=== PATIENT | male | born 1945 | race Caucasian/White ===

== ENCOUNTER 2019-06-24 11:25 | Outpatient (CLI) | payer MEDICARE, OTHER, SELFPAY ==
--- NOTE | ~2019-06-24 | CT_ITS ---
EXAMINATION: CT hip RT wo con DATE: 06/24/2019 11:42 INDICATION: Right hip pain. TECHNIQUE: Computed tomography (CT) of the right hip was performed without intravenous contrast. Auto mated exposure control and iterative reconstruction technique were employed. The dose-length product was 754.55 mGy-cm. COMPARISON: CT abdomen and pelvis 03/16/2015 FINDINGS: There is a small right inguinal hernia containing fat. Bone alignment is normal. No fractur e. There is moderate right hip osteoarthritis. There is severe lumbar spondylosis. There is severe tr ochanteric bursitis. IMPRESSION: 1. Moderate right hip osteoarthritis. 2. Severe right-sided trochanteric bursitis. 3. Small right inguinal hernia containing fat. Reviewed, dictated and finalized at location A. CAPPER
== END 2019-06-24 11:26 | disposition home or self-care (01) ==
LOC: CHSIMG 11:28
PROVIDERS: PCP Internal Medicine; Visit Provider Internal Medicine
DX: M25.551 Pain in right hip (principal)
CPT/HCPCS: 73700

== ENCOUNTER 2019-10-14 13:25 | Emergency (ER) | payer MEDICARE, OTHER, SELFPAY ==
[2019-10-14 13:46] VITALS: BP 188/89; PULSE 71; RESP 22; TEMP 36.6; O2SAT 97
--- NOTE | 2019-10-14 14:18 | ED.WOUNDLAC ---
HPI - Wound/Laceration General Chief Complaint: Wound/Laceration Stated Complaint: cut fingers left hand Source: patient Mode of arrival: ambulatory Limitations: no limitations History of Present Illness HPI narrative: patient presents with laceration that occurred earlier today after he was working at home with a knife cutting the excess paint awful when window pane and inadvertently cut his left anterior 3rd and 4th finger they are well-approximated initially there was quite a bili bleeding that prompted the patient to come into the emergency department. Currently there is no bleeding the patient has well-approximated well laceration to his anterior 3rd finger approximately 1cm in in length and the other on his 4th anterior finger approximately 0.5cm and a non gaping currently no numbness tingling. Patient does take a baby aspirin daily. Onset (ago): minute(s) Location: other ( Fingers) Extremity Location: Left: hand ( laceration anterior 3rd and 4th finger) Place: home Context: accidental Associated symptoms: none Related Data Home Medications Medication Instructions Recorded Confirmed alprazolam 0.25 mg PO PRN PRN 10/14/19 10/14/19 carvedilol 12.5 mg PO BID 10/14/19 10/14/19 clonidine HCl 0.1 mg PO DAILY 10/14/19 10/14/19 hydralazine 50 mg PO DAILY 10/14/19 10/14/19 hydrochlorothiazide 50 mg PO DAILY 10/14/19 10/14/19 lovastatin 40 mg PO 10/14/19 10/14/19 metformin 500 mg PO DAILY 10/14/19 10/14/19 nifedipine 30 mg PO DAILY 10/14/19 10/14/19 nitroglycerin 0.4 mg SUBLINGUAL PRN PRN 10/14/19 10/14/19 omeprazole 40 mg PO DAILY 10/14/19 10/14/19 potassium chloride 20 meq PO DAILY 10/14/19 10/14/19 tramadol 50 mg PO PRN PRN 10/14/19 10/14/19 trazodone 50 mg PO HS 10/14/19 10/14/19 Allergies Allergy/AdvReac Type Severity Reaction Status Date / Time hydrocodone Allergy Severe ITCHING Verified 05/04/15 16:47 tramadol Allergy Severe ITCHING Verified 05/04/15 16:47 codeine Allergy Hives Verified 10/14/19 13:42 Review of Systems Review of Systems: All systems reviewed & are unremarkable except as noted in HPI and below PMFSH Past Medical History Medical History HTN (hypertension) Exam Const: General: no acute distress and alert Orientation/consciousness: patient oriented x3 HENMT: Head: normal to inspection Eyes: Conjunctivae: conjunctivae normal Pupils: Equal, round and reactive pupils present Neck: Neck: normal visual inspection and no lymphadenopathy Chest: Chest palpation & inspection: normal inspection of the chest Resp: Effort & Inspection: normal respiratory effort Auscultation: clear to auscultation bilaterally Cardio: Rate: regular rate Rhythm: regular rhythm GI: GI Palp: Yes Soft to palpation Percussion: Yes normal to percussion Skin: Wounds: wounds noted Other: laceration anterior 3rd left finger approximately 1cm in length non gaping Laceration anterior 4th finger non gaping 0.5cm in length Neuro: General: patient oriented x3, moves all extremities, no meningeal signs and no focal motor deficits Extrem: General: normal to inspection Psych: Appearance: grossly normal Mental Status: mental status grossly normal Course Course Emergency Course: patient had Dermabond the wound was irrigated patient tolerated procedure well currently no bleeding and patient was updated with his tetanus shot. Vital Signs Vital signs: Vital Signs Temperature 36.6 C 10/14/19 13:46 Pulse Rate 71 10/14/19 13:46 Respiratory Rate 22 H 10/14/19 13:46 Blood Pressure 188/89 H 10/14/19 13:46 Pulse Oximetry 97 10/14/19 13:46 Temperature 36.6 C 10/14/19 13:46 Pulse Rate 71 10/14/19 13:46 Respiratory Rate 22 H 10/14/19 13:46 Blood Pressure 188/89 H 10/14/19 13:46 Pulse Oximetry 97 10/14/19 13:46 Critical Care Time Critical Care Time Critical Care Time: No Discharge Plan Discharge Clinical Impression: Laceration
[2019-10-14] MEDS: TETANUS,DIPHTHERIA,AC PERTUSSIS ADULT 0.5 ML (ADACEL) IM (14:20)
[2019-10-14 14:37] VITALS: RESP 15
== END 2019-10-14 14:30 | disposition home or self-care (01) ==
PROVIDERS: Emergency Provider Emergency Medicine; PCP Internal Medicine
DX: S61.412A Laceration without foreign body of left hand, initial encounter (principal); W26.0XXA Contact with knife, initial encounter
CPT/HCPCS: 90471; 90715; 99282

== ENCOUNTER 2019-10-26 06:58 | Outpatient (CLI) | payer MEDICARE, SELFPAY ==
[2019-10-26 07:13] LABS: Add Urine Microscopic? NO; Appearance Urine Clear (Clear); Bilirubin Urine Negative (Negative); Blood Urine Negative (Negative); Color Urine Yellow (Yellow); Glucose Urine UA Negative (Negative); Ketones Urine Negative (Negative); Leukocyte Esterase Ur Negative (Negative); Nitrate Urine Negative (Negative); Protein Urine Negative (Negative); Specific Grav Ur 1.025 (1.010-1.020); Urobilinogen Urine 0.2 mg/dL (0.2-1.0); pH Urine 5.5 (5.0-8.0)
[2019-10-26 07:16] LABS: Hemoglobin A1C 5.4 % (<5.7)
[2019-10-26 07:20] LABS: Creatinine Urine 131.85 mg/dL (40-278); Microalbumin Urine Random 1.4 mg/L
[2019-10-26 08:43] LABS: Alanine Aminotransferase 36 U/L (16-63); Albumin Level 4.2 g/dL (3.4-5.0); Alkaline Phosphatase 82 U/L (46-116); Anion Gap 13.2 mmol/L (7-16); Aspartate Amino Transferase 21 U/L (15-37); Bilirubin,Total 0.6 mg/dL (0.00-1.00); Blood Urea Nitrogen 18 mg/dL (7-18); Calcium 8.9 mg/dL (8.5-10.1); Carbon Dioxide 28 mmol/L (21-32); Chloride 104 mmol/L (98-108); Cholesterol 134 mg/dL (0-200); Creatine Kinase 152 U/L (39-308); Estimated Glomerular Filt Rate > 60; Glucose 115 mg/dL (70-99); HDL Direct 28 mg/dL (40-60); LDL Cholesterol Calculated 72 mg/dL (<130); Osmolality Calculated 294 mOsm/kg (285-295); Potassium 4.2 mmol/L (3.5-5.1); Sodium 141 mmol/L (136-145); Total Protein 6.9 g/dL (6.4-8.2); Triglycerides 168 mg/dL (0-150)
== END 2019-10-26 06:59 | disposition home or self-care (01) ==
LOC: CHSLAB 06:59
PROVIDERS: PCP Internal Medicine; Visit Provider Internal Medicine
DX: E78.2 Mixed hyperlipidemia (principal); E11.9 Type 2 diabetes mellitus without complications; I10 Essential (primary) hypertension; Z01.84 Encounter for antibody response examination
CPT/HCPCS: 36415; 80053; 80061; 81003; 82043; 82550; 83036; 86769

== ENCOUNTER 2019-12-10 07:01 | Outpatient (CLI) | payer MEDICARE, SELFPAY ==
[2019-12-10 07:46] LABS: Anion Gap 11.9 mmol/L (7-16); Blood Urea Nitrogen 14 mg/dL (7-18); Calcium 9.1 mg/dL (8.5-10.1); Carbon Dioxide 29 mmol/L (21-32); Chloride 103 mmol/L (98-108); Estimated Glomerular Filt Rate 55; Glucose 147 mg/dL (70-99); Osmolality Calculated 293 mOsm/kg (285-295); Potassium 3.9 mmol/L (3.5-5.1); Sodium 140 mmol/L (136-145)
== END 2019-12-10 07:02 | disposition home or self-care (01) ==
PROVIDERS: PCP Internal Medicine; Visit Provider Specialist
DX: Z79.899 Other long term (current) drug therapy (principal); I10 Essential (primary) hypertension
CPT/HCPCS: 36415; 80048

== ENCOUNTER 2020-01-14 06:59 | Outpatient (CLI) | payer MEDICARE, SELFPAY ==
[2020-01-14 08:53] LABS: Anion Gap 10 mmol/L (8-16); Blood Urea Nitrogen 21 mg/dL (7-18); Calcium 8.9 mg/dL (8.5-10.1); Carbon Dioxide 28 mmol/L (21-32); Chloride 102 mmol/L (98-108); Estimated Glomerular Filt Rate > 60; Glucose 98 mg/dL (70-99); Osmolality Calculated 293 mOsm/kg (285-295); Sodium 140 mmol/L (136-145)
== END 2020-01-14 07:00 | disposition home or self-care (01) ==
LOC: CHSLAB 07:01
PROVIDERS: PCP Internal Medicine; Visit Provider Specialist
DX: Z79.899 Other long term (current) drug therapy (principal); I10 Essential (primary) hypertension
CPT/HCPCS: 36415; 80048

== ENCOUNTER 2020-04-24 07:00 | Outpatient (CLI) | payer MEDICARE, SELFPAY ==
[2020-04-24 07:13] LABS: Add Urine Microscopic? NO; Appearance Urine Clear (Clear); Bilirubin Urine Negative (Negative); Blood Urine Negative (Negative); Color Urine Yellow (Yellow); Glucose Urine UA Negative (Negative); Hematocrit 38.6 % (37.0-46.0); Hemoglobin 13.9 g/dL (12.4-15.3); Ketones Urine Negative (Negative); Leukocyte Esterase Ur Negative (Negative); Mean Corpuscular Hemoglobin 32.1 pg (27.0-31.0); Mean Corpuscular Volume 89.1 fL (78.0-102.0); Mean Platelet Volume 9.4 fl (8.7-11.0); Nitrate Urine Negative (Negative); Platelet Count Result 115 K/mm3 (150-420); Protein Urine Negative (Negative); Red Blood Count 4.33 M/mm3 (4.70-6.10); Red Cell Distribution Width 12.1 % (11.6-14.4); Specific Grav Ur 1.025 (1.010-1.020); Urobilinogen Urine 0.2 mg/dL (0.2-1.0); White Blood Count 3.4 K/mm3 (4.8-10.8)
[2020-04-24 08:09] LABS: Band Neutrophils Percent 2 % (0-6); Basophils Percent Manual 0 % (0-1); Eosinophils Absolute Manual 0.06 K/mm3 (0.02-0.5); Eosinophils Percent Manual 2 % (1-6); Lymphocytes Absolute Manual 0.78 K/mm3 (1.1-4.5); Lymphocytes Percent Manual 23 % (18-44); Monocytes Absolute Manual 0.57 K/mm3 (0.1-0.90); Monocytes Percent Manual 17 % (3-9); Neutrophils Absolute Manual 1.97 K/mm3 (1.3-6.7); Neutrophils Percent Manual 56 % (46-73); Platelet Estimate Adequate (Adequate); Total Cells Counted 100
[2020-04-24 08:10] LABS: Creatinine Urine 161.41 mg/dL (40-278); MALB Creatinine Ratio 8.1 mg/g (0-30); Microalbumin Urine Random 13.1 mg/L
[2020-04-24 08:14] LABS: Hemoglobin A1C 5.5 % (<5.7)
[2020-04-24 08:46] LABS: Alanine Aminotransferase 54 U/L (16-63); Alkaline Phosphatase 94 U/L (46-116); Anion Gap 10 mmol/L (8-16); Aspartate Amino Transferase 29 U/L (15-37); Bilirubin,Total 0.4 mg/dL (0.00-1.00); Blood Urea Nitrogen 15 mg/dL (7-18); Calcium 8.7 mg/dL (8.5-10.1); Carbon Dioxide 28 mmol/L (21-32); Chloride 102 mmol/L (98-108); Cholesterol 105 mg/dL (0-200); Creatine Kinase 107 U/L (39-308); Estimated Glomerular Filt Rate 59; Glucose 108 mg/dL (70-99); HDL Direct 24 mg/dL (40-60); LDL Cholesterol Calculated 34 mg/dL (<130); Osmolality Calculated 291 mOsm/kg (285-295); Potassium 3.9 mmol/L (3.5-5.1); Sodium 140 mmol/L (136-145); Total Protein 6.8 g/dL (6.4-8.2); Triglycerides 234 mg/dL (0-150)
== END 2020-04-24 07:01 | disposition home or self-care (01) ==
LOC: CHSLAB 07:02
PROVIDERS: PCP Internal Medicine; Visit Provider Internal Medicine
DX: E11.9 Type 2 diabetes mellitus without complications (principal); I10 Essential (primary) hypertension; E78.2 Mixed hyperlipidemia; D72.819 Decreased white blood cell count, unspecified
CPT/HCPCS: 36415; 80053; 80061; 81003; 82043; 82550; 83036; 85025

== ENCOUNTER 2020-05-26 07:01 | Outpatient (CLI) | payer MEDICARE, SELFPAY ==
[2020-05-26 07:11] LABS: Basophils Absolute Auto 0.03 K/mm3 (0.00-0.10); Basophils Percent Auto 0.6 % (0.0-1.0); Eosinophils Absolute Auto 0.19 K/mm3 (0.02-0.50); Hematocrit 39.8 % (37.0-46.0); Hemoglobin 14.1 g/dL (12.4-15.3); Immature Granulocyte Absolute 0.02 K/mm3 (0.00-0.00); Immature Granulocyte Percent A 0.4 % (0.0-0.0); Lymphocytes Percent Auto 23.2 % (18.0-42.0); Mean Corpuscular HGB Conc 35.4 g/dL (32.0-36.0); Mean Corpuscular Hemoglobin 31.3 pg (27.0-31.0); Mean Corpuscular Volume 88.2 fL (78.0-102.0); Mean Platelet Volume 9.1 fl (8.7-11.0); Monocytes Absolute Auto 0.59 K/mm3 (0.10-0.90); Monocytes Percent Auto 12.4 % (2.0-11.0); Neutrophils Absolute Auto 2.8 K/mm3 (1.7-7.2); Neutrophils Percent Auto 59.4 % (50.0-70.0); Platelet Count Result 158 K/mm3 (150-420); Red Blood Count 4.51 M/mm3 (4.70-6.10); Red Cell Distribution Width 12.3 % (11.6-14.4); White Blood Count 4.8 K/mm3 (4.8-10.8)
== END 2020-05-26 07:02 | disposition home or self-care (01) ==
LOC: CHSLAB 07:03
PROVIDERS: PCP Internal Medicine; Visit Provider Internal Medicine
DX: D64.0 Hereditary sideroblastic anemia (principal)
CPT/HCPCS: 36415; 85025

== ENCOUNTER 2021-10-03 07:29 | Outpatient (CLI) | payer MEDICARE, SELFPAY ==
--- NOTE | ~2021-10-03 | US_ITS ---
EXAMINATION: US art doppler w press LE BI DATE: 10/03/2021 09:07 INDICATION: Peripheral arterial occlusive disease with hypertension, ascites, hypercholesterolemia an d prior smoking presenting with lower limb pain. TECHNIQUE: Segmental pressures and plethysmographic and Doppler waveforms of the brachial and lower e xtremity arteries were obtained. COMPARISON: None. FINDINGS: Right and left brachial artery pressures of 149 mm Hg and 147 mm Hg, respectively, are concordant (no rmal difference <= 30 mmHg). The right and left high-thigh pressure indices are 1.01 and 1.09, respec tively (normal > 1.2). The right ankle-brachial index (ROSENDO) is 0.84 (normal >= 0.9-1). The right great toe-brachial index (T BI) is 0.46 (normal >= 0.6-0.8). The right lower extremity segmental pressure gradients are increased between the right above and nbrdd-ooh-lxrm popliteal artery and between the right wfipj-fib-kjfm pop liteal artery and the right dorsalis pedis artery (normal gradients <= 20-30 mmHg between adjacent le vels on the same leg or the same levels on the two legs). Arterial waveforms are biphasic with brisk systolic upstrokes throughout the arteries of the right lower limb. The left ROSENDO is 0.87. The left TBI was unable to be obtained due to pain at the left great toe. The l eft lower extremity segmental pressure gradients are increased between the left ovsax-qpl-tsvi poplit eal artery and the left dorsalis pedis and posterior tibial arteries at the ankle. Arterial waveforms are triphasic at the left common femoral artery and biphasic in the more distal arteries with brisk systolic upstrokes throughout. IMPRESSION: 1. Arterial occlusive disease to the bilateral lower limbs with mildly decreased bilateral high thigh pressure indices, ABIs and right TBI. Reviewed, dictated and finalized at location A. IMPRESSION: 1. Arterial occlusive disease to the bilateral lower limbs with mildly decrease d bilateral high thigh pressure indices, ABIs and right TBI.
== END 2021-10-03 07:30 | disposition home or self-care (01) ==
PROVIDERS: PCP Internal Medicine; Visit Provider Podiatrist Foot & Ankle Surgery
DX: I70.203 Unspecified atherosclerosis of native arteries of extremities, bilateral legs (principal); M79.606 Pain in leg, unspecified
CPT/HCPCS: 93923

== ENCOUNTER 2022-01-30 07:44 | Outpatient (CLI) | payer MEDICARE, SELFPAY | END 2022-01-30 07:45 | disposition home or self-care (01) | PROVIDERS: PCP Internal Medicine; Visit Provider Internal Medicine | DX: H91.93 Unspecified hearing loss, bilateral (principal) | CPT/HCPCS: 92557 ==

== ENCOUNTER 2022-05-30 07:02 | Outpatient (CLI) | payer MEDICARE, SELFPAY ==
[2022-05-30 07:30] LABS: Hematocrit 40.8 % (37.0-46.0); Hemoglobin 14.6 g/dL (12.4-15.3); Mean Corpuscular HGB Conc 35.8 g/dL (32.0-36.0); Mean Corpuscular Hemoglobin 32.2 pg (27.0-31.0); Mean Corpuscular Volume 89.9 fL (78.0-102.0); Mean Platelet Volume 9.4 fl (8.7-11.0); Platelet Count Result 150 K/mm3 (150-420); Red Blood Count 4.54 M/mm3 (4.70-6.10); Red Cell Distribution Width 11.9 % (11.6-14.4); White Blood Count 3.8 K/mm3 (4.8-10.8)
[2022-05-30 07:31] LABS: Add Urine Microscopic? NO; Appearance Urine Clear (Clear); Bilirubin Urine Negative (Negative); Blood Urine Negative (Negative); Color Urine Yellow (Yellow); Glucose Urine UA Negative (Negative); Ketones Urine Negative (Negative); Leukocyte Esterase Ur Negative (Negative); Nitrate Urine Negative (Negative); Protein Urine Negative (Negative); Specific Grav Ur >= 1.030 (1.010-1.020)
[2022-05-30 07:51] LABS: Band Neutrophils Percent 0 % (0-6); Basophils Absolute Manual 0.03 K/mm3 (0-0.1); Basophils Percent Manual 1 % (0-1); Eosinophils Absolute Manual 0.26 K/mm3 (0.02-0.5); Eosinophils Percent Manual 7 % (1-6); Lymphocytes Absolute Manual 1.06 K/mm3 (1.1-4.5); Lymphocytes Percent Manual 28 % (18-44); Monocytes Absolute Manual 0.34 K/mm3 (0.1-0.90); Monocytes Percent Manual 9 % (3-9); Neutrophils Absolute Manual 2.09 K/mm3 (1.3-6.7); Neutrophils Percent Manual 55 % (46-73); Platelet Estimate Adequate (Adequate); Total Cells Counted 100
[2022-05-30 08:00] LABS: Creatinine Urine 163.65 mg/dL (40-278); MALB Creatinine Ratio 7.9 mg/g (0-30); Microalbumin Urine Random < 13.0 mg/L
[2022-05-30 08:02] LABS: Hemoglobin A1C 5.6 % (<5.7)
[2022-05-30 08:52] LABS: Alanine Aminotransferase 47 U/L (16-63); Albumin Level 4.1 g/dL (3.4-5.0); Alkaline Phosphatase 88 U/L (46-116); Anion Gap 9 mmol/L (8-16); Aspartate Amino Transferase 25 U/L (15-37); Bilirubin,Total 0.5 mg/dL (0.00-1.00); Blood Urea Nitrogen 15 mg/dL (7-18); Calcium 8.5 mg/dL (8.5-10.1); Carbon Dioxide 28 mmol/L (21-32); Chloride 103 mmol/L (98-108); Cholesterol 140 mg/dL (0-200); Creatine Kinase 89 U/L (39-308); Estimated Glomerular Filt Rate 60; Glucose 132 mg/dL (70-99); HDL Direct 35 mg/dL (40-60); LDL Cholesterol Calculated 80 mg/dL (<130); Osmolality Calculated 292 mOsm/kg (285-295); Potassium 4.1 mmol/L (3.5-5.1); Sodium 140 mmol/L (136-145); Total Protein 6.8 g/dL (6.4-8.2); Triglycerides 126 mg/dL (0-150)
== END 2022-05-30 07:03 | disposition home or self-care (01) ==
LOC: CHSLAB 07:05
PROVIDERS: PCP Internal Medicine; Visit Provider Internal Medicine
DX: E11.9 Type 2 diabetes mellitus without complications (principal); I10 Essential (primary) hypertension; E78.2 Mixed hyperlipidemia; I25.10 Atherosclerotic heart disease of native coronary artery without angina pectoris; Z85.46 Personal history of malignant neoplasm of prostate
CPT/HCPCS: 36415; 80053; 80061; 81003; 82043; 82550; 83036; 85025

== ENCOUNTER 2022-06-25 10:49 | Outpatient (CLI) | payer MEDICARE, SELFPAY ==
[2022-06-25 11:22] LABS: Basophils Absolute Auto 0.03 K/mm3 (0.00-0.10); Basophils Percent Auto 0.6 % (0.0-1.0); Eosinophils Absolute Auto 0.18 K/mm3 (0.02-0.50); Eosinophils Percent Auto 3.7 % (1.0-6.0); Immature Granulocyte Absolute 0.02 K/mm3 (0.00-0.00); Immature Granulocyte Percent A 0.4 % (0.0-0.0); Lymphocytes Absolute Auto 0.98 K/mm3 (1.10-4.50); Lymphocytes Percent Auto 20.2 % (18.0-42.0); Mean Corpuscular HGB Conc 35.7 g/dL (32.0-36.0); Mean Corpuscular Hemoglobin 32.2 pg (27.0-31.0); Mean Corpuscular Volume 90.1 fL (78.0-102.0); Mean Platelet Volume 9.3 fl (8.7-11.0); Monocytes Absolute Auto 0.49 K/mm3 (0.10-0.90); Monocytes Percent Auto 10.1 % (2.0-11.0); Neutrophils Absolute Auto 3.1 K/mm3 (1.7-7.2); Platelet Count Result 169 K/mm3 (150-420); Red Blood Count 4.66 M/mm3 (4.70-6.10); Red Cell Distribution Width 11.9 % (11.6-14.4); White Blood Count 4.8 K/mm3 (4.8-10.8)
[2022-06-25 11:43] LABS: Anion Gap 8 mmol/L (8-16); Blood Urea Nitrogen 14 mg/dL (7-18); Calcium 8.8 mg/dL (8.5-10.1); Carbon Dioxide 28 mmol/L (21-32); Chloride 106 mmol/L (98-108); Estimated Glomerular Filt Rate > 60; Glucose 116 mg/dL (70-99); Osmolality Calculated 295 mOsm/kg (285-295); Potassium 4.4 mmol/L (3.5-5.1); Sodium 142 mmol/L (136-145)
== END 2022-06-25 10:50 | disposition home or self-care (01) ==
LOC: CHSLAB 10:51
PROVIDERS: PCP Internal Medicine; Visit Provider Internal Medicine
DX: D70.9 Neutropenia, unspecified (principal); I10 Essential (primary) hypertension
CPT/HCPCS: 36415; 80048; 85025

== ENCOUNTER 2022-06-26 07:09 | Outpatient (CLI) | payer MEDICARE, SELFPAY ==
--- NOTE | ~2022-06-26 | CT_ITS ---
EXAMINATION: CTA neck DATE: 06/26/2022 07:55 INDICATION: Carotid stenosis. TECHNIQUE: Computed tomographic angiography (CTA) of the neck was performed with 100 mL Omnipaque-350 intravenous contrast. Automated exposure control and iterative reconstruction technique were employe d. The dose-length product was 575.96 mGy-cm. Maximum intensity projection 3D-reconstructions were cr eated by the technologist on a separate workstation. COMPARISON: Neck CTA 06/11/19 FINDINGS: There is mild scarring at the lung apices. There are no pathologically enlarged lymph nodes . There are likely changes of ocular lens replacement surgeries. The vertebral arteries are codominan t. There is no significant stenosis of the vertebral arteries. There is plaque in the proximal internet sales consultant al carotid arteries. There is 77% stenosis of the proximal right internal carotid artery relative to normal distal artery lumen diameter (NASCET criteria). There is 34% stenosis of the proximal left int ernal carotid artery relative to normal distal artery lumen diameter. There is severe cervical spondy losis. There are changes of anterior fusion procedure at C6-C7. IMPRESSION: 1. 77% stenosis of the proximal right internal carotid artery relative to normal distal artery lumen diameter (NASCET criteria). 2. 34% stenosis of the proximal left internal carotid artery relative to normal distal artery lumen d iameter. Reviewed, dictated and finalized at location A. GEMENT LIAISON IMPRESSION: 1. 77% stenosis of the proximal right internal carotid artery relative to rossy l distal artery lumen diameter (NASCET criteria). 2. 34% stenosis of the proximal left internal carotid artery relative to normal distal artery lumen diameter.
== END 2022-06-26 07:10 | disposition home or self-care (01) ==
LOC: CHSIMG 07:10
PROVIDERS: PCP Internal Medicine; Visit Provider Internal Medicine
DX: I65.23 Occlusion and stenosis of bilateral carotid arteries (principal)
CPT/HCPCS: 70498; Q9967

== ENCOUNTER 2022-12-25 06:53 | Outpatient (CLI) | payer MEDICARE, SELFPAY ==
[2022-12-25 07:05] LABS: Basophils Absolute Auto 0.05 K/mm3 (0.00-0.10); Eosinophils Absolute Auto 0.16 K/mm3 (0.02-0.50); Eosinophils Percent Auto 3.3 % (1.0-6.0); Hematocrit 41.4 % (37.0-46.0); Hemoglobin 14.7 g/dL (12.4-15.3); Immature Granulocyte Absolute 0.02 K/mm3 (0.00-0.00); Immature Granulocyte Percent A 0.4 % (0.0-0.0); Lymphocytes Absolute Auto 1.04 K/mm3 (1.10-4.50); Lymphocytes Percent Auto 21.5 % (18.0-42.0); Mean Corpuscular HGB Conc 35.5 g/dL (32.0-36.0); Mean Corpuscular Volume 90.2 fL (78.0-102.0); Mean Platelet Volume 9.5 fl (8.7-11.0); Monocytes Absolute Auto 0.54 K/mm3 (0.10-0.90); Monocytes Percent Auto 11.2 % (2.0-11.0); Neutrophils Percent Auto 62.6 % (50.0-70.0); Platelet Count Result 169 K/mm3 (150-420); Red Blood Count 4.59 M/mm3 (4.70-6.10); White Blood Count 4.8 K/mm3 (4.8-10.8)
[2022-12-25 07:13] LABS: Appearance Urine Clear (Clear); Bilirubin Urine Negative (Negative); Blood Urine Negative (Negative); Color Urine Yellow (Yellow); Glucose Urine UA Negative (Negative); Ketones Urine Negative (Negative); Leukocyte Esterase Ur Negative (Negative); Nitrate Urine Negative (Negative); Protein Urine Negative (Negative); Specific Grav Ur 1.025 (1.010-1.020)
[2022-12-25 07:18] LABS: Add Urine Microscopic? NO
[2022-12-25 07:29] LABS: Creatinine Urine 205.14 mg/dL (40-278); MALB Creatinine Ratio 6.3 mg/g (0-30); Microalbumin Urine Random < 13.0 mg/L
[2022-12-25 07:31] LABS: Hemoglobin A1C 5.1 % (<5.7)
[2022-12-25 08:20] LABS: Alanine Aminotransferase 31 U/L (16-63); Albumin Level 3.9 g/dL (3.4-5.0); Alkaline Phosphatase 104 U/L (46-116); Anion Gap 11 mmol/L (8-16); Aspartate Amino Transferase 17 U/L (15-37); Bilirubin,Total 0.4 mg/dL (0.00-1.00); Blood Urea Nitrogen 20 mg/dL (7-18); Calcium 8.9 mg/dL (8.5-10.1); Carbon Dioxide 25 mmol/L (21-32); Chloride 106 mmol/L (98-108); Cholesterol 139 mg/dL (0-200); Creatine Kinase 67 U/L (39-308); Estimated Glomerular Filt Rate 56; Glucose 103 mg/dL (70-99); HDL Direct 34 mg/dL (40-60); LDL Cholesterol Calculated 75 mg/dL (<130); Osmolality Calculated 296 mOsm/kg (285-295); Potassium 4.1 mmol/L (3.5-5.1); Sodium 142 mmol/L (136-145); Total Protein 6.8 g/dL (6.4-8.2); Triglycerides 150 mg/dL (0-150)
== END 2022-12-25 06:54 | disposition home or self-care (01) ==
LOC: CHSLAB 06:55
PROVIDERS: PCP Internal Medicine; Visit Provider Internal Medicine
DX: R53.82 Chronic fatigue, unspecified (principal); I10 Essential (primary) hypertension; E78.2 Mixed hyperlipidemia; D70.9 Neutropenia, unspecified; E11.59 Type 2 diabetes mellitus with other circulatory complications
CPT/HCPCS: 36415; 80053; 80061; 81003; 82043; 82550; 83036; 85025

== ENCOUNTER 2023-01-21 07:15 | Outpatient (CLI) | payer MEDICARE, SELFPAY ==
[2023-01-21 08:15] LABS: Alanine Aminotransferase 31 U/L (16-63); Albumin Level 3.9 g/dL (3.4-5.0); Alkaline Phosphatase 98 U/L (46-116); Anion Gap 7 mmol/L (8-16); Aspartate Amino Transferase 19 U/L (15-37); Bilirubin,Total 0.6 mg/dL (0.00-1.00); Blood Urea Nitrogen 17 mg/dL (7-18); Calcium 9.1 mg/dL (8.5-10.1); Carbon Dioxide 28 mmol/L (21-32); Chloride 105 mmol/L (98-108); Estimated Glomerular Filt Rate > 60; Glucose 117 mg/dL (70-99); Osmolality Calculated 292 mOsm/kg (285-295); Potassium 4.2 mmol/L (3.5-5.1); Sodium 140 mmol/L (136-145); Total Protein 6.6 g/dL (6.4-8.2)
== END 2023-01-21 07:16 | disposition home or self-care (01) ==
LOC: CHSLAB 07:16
PROVIDERS: PCP Internal Medicine; Visit Provider Internal Medicine
DX: I10 Essential (primary) hypertension (principal)
CPT/HCPCS: 36415; 80053

== ENCOUNTER → 2023-04-14 09:57 | Outpatient (REF) | payer MEDICARE, SELFPAY | LOC: ANHLAB 09:57 | PROVIDERS: PCP Internal Medicine; Visit Provider Plastic Surgery | DX: C44.319 Basal cell carcinoma of skin of other parts of face (principal) | CPT/HCPCS: 88305 ==

== ENCOUNTER 2023-07-16 06:52 | Outpatient (CLI) | payer MEDICARE, SELFPAY ==
[2023-07-16 07:06] LABS: Appearance Urine Clear (Clear); Basophils Absolute Auto 0.05 K/mm3 (0.00-0.10); Basophils Percent Auto 1.1 % (0.0-1.0); Bilirubin Urine Negative (Negative); Blood Urine Trace-Intact (Negative); Color Urine Yellow (Yellow); Eosinophils Absolute Auto 0.16 K/mm3 (0.02-0.50); Eosinophils Percent Auto 3.4 % (1.0-6.0); Glucose Urine UA Negative (Negative); Hematocrit 40.3 % (37.0-46.0); Hemoglobin 14.4 g/dL (12.4-15.3); Immature Granulocyte Absolute 0.01 K/mm3 (0.00-0.00); Immature Granulocyte Percent A 0.2 % (0.0-0.0); Ketones Urine Negative (Negative); Leukocyte Esterase Ur Negative (Negative); Lymphocytes Absolute Auto 0.83 K/mm3 (1.10-4.50); Lymphocytes Percent Auto 17.8 % (18.0-42.0); Mean Corpuscular HGB Conc 35.7 g/dL (32.0-36.0); Mean Corpuscular Hemoglobin 31.4 pg (27.0-31.0); Mean Corpuscular Volume 87.8 fL (78.0-102.0); Mean Platelet Volume 9.2 fl (8.7-11.0); Monocytes Absolute Auto 0.41 K/mm3 (0.10-0.90); Monocytes Percent Auto 8.8 % (2.0-11.0); Neutrophils Absolute Auto 3.2 K/mm3 (1.7-7.2); Neutrophils Percent Auto 68.7 % (50.0-70.0); Nitrate Urine Negative (Negative); Platelet Count Result 156 K/mm3 (150-420); Protein Urine Negative (Negative); Red Blood Count 4.59 M/mm3 (4.70-6.10); Red Cell Distribution Width 11.8 % (11.6-14.4); Specific Grav Ur 1.025 (1.010-1.020); Urobilinogen Urine 0.2 mg/dL (0.2-1.0); White Blood Count 4.7 K/mm3 (4.8-10.8); pH Urine 5.5 (5.0-8.0)
[2023-07-16 07:12] LABS: Add Urine Microscopic? YES; Bacteria Urine Trace /hpf; Mucus Urine Few /lpf; RBC Urine 0-2 /hpf (0-2); WBC Urine None seen /hpf (0-3)
[2023-07-16 07:15] LABS: Hemoglobin A1C 5.5 % (<5.7)
[2023-07-16 07:46] LABS: Alanine Aminotransferase 39 U/L (16-63); Alkaline Phosphatase 86 U/L (46-116); Anion Gap 11 mmol/L (8-16); Aspartate Amino Transferase 17 U/L (15-37); Bilirubin,Total 0.6 mg/dL (0.00-1.00); Blood Urea Nitrogen 20 mg/dL (7-18); Calcium 8.6 mg/dL (8.5-10.1); Carbon Dioxide 26 mmol/L (21-32); Chloride 104 mmol/L (98-108); Cholesterol 133 mg/dL (0-200); Creatine Kinase 73 U/L (39-308); Estimated Glomerular Filt Rate > 60; Free T4 Free Thyroxine 0.94 ng/dL (0.76-1.46); Glucose 117 mg/dL (70-99); HDL Direct 36 mg/dL (40-60); LDL Cholesterol Calculated 70 mg/dL (<130); Osmolality Calculated 295 mOsm/kg (285-295); Potassium 4.2 mmol/L (3.5-5.1); Sodium 141 mmol/L (136-145); Thyroid Stimulating Hormone 3.41 uIU/mL (0.36-3.74); Total Protein 6.7 g/dL (6.4-8.2); Triglycerides 133 mg/dL (0-150)
[2023-07-17 09:36] LABS: Creatinine Urine 258.43 mg/dL (40-278); Microalbumin Urine Random < 13.0 mg/L
== END 2023-07-16 06:53 | disposition home or self-care (01) ==
LOC: CHSLAB 06:53
PROVIDERS: PCP Internal Medicine; Visit Provider Internal Medicine
DX: E11.59 Type 2 diabetes mellitus with other circulatory complications (principal); I10 Essential (primary) hypertension; E78.2 Mixed hyperlipidemia; R53.82 Chronic fatigue, unspecified
CPT/HCPCS: 36415; 80053; 80061; 81001; 82043; 82550; 83036; 84439; 84443; 85025

== ENCOUNTER 2024-01-22 09:10 | Outpatient (CLI) | payer MEDICARE, SELFPAY ==
--- NOTE | ~2024-01-22 | XR_ITS ---
Clinical Indication: Wheezing, cough PA and lateral views of the chest: Comparison: 07/27/2018 Findings: The lungs are clear, without evidence of focal consolidation or pleural effusion. Cardiome diastinal silhouette is within normal limits. Bones and soft tissues are unremarkable. Impression: Normal chest. Reviewed, dictated and finalized at location . Impression: Normal chest.
[2024-01-22 09:27] LABS: Hemoglobin 13.5 g/dL (12.4-15.3); Mean Corpuscular HGB Conc 35.5 g/dL (32-36); Mean Corpuscular Hemoglobin 32.3 pg (27.0-31.0); Mean Corpuscular Volume 90.9 fL (78.0-102.0); Mean Platelet Volume 9.3 fl (8.7-11.0); Platelet Count Result 143 K/mm3 (150-420); Red Blood Count 4.18 M/mm3 (4.70-6.10); Red Cell Distribution Width 12.1 % (11.6-14.4); White Blood Count 3.9 K/mm3 (4.8-10.8)
[2024-01-22 09:56] LABS: Band Neutrophils Percent 0 % (0-6); Eosinophils Absolute Manual 0.19 K/mm3 (0.02-0.50); Eosinophils Percent Manual 5 % (1-6); Lymphocytes Absolute Manual 1.17 K/mm3 (1.1-4.5); Lymphocytes Percent Manual 30 % (18-44); Monocytes Absolute Manual 0.19 K/mm3 (0.1-0.90); Monocytes Percent Manual 5 % (3-9); Neutrophils Absolute Manual 2.34 K/mm3 (1.3-6.7); Neutrophils Percent Manual 60 % (46-73); Platelet Estimate Adequate (Adequate); Total Cells Counted 100
[2024-01-22 10:01] LABS: SARS-CoV-2 RNA PCR Positive (Negative)
[2024-01-22 10:08] LABS: Influenza A QL RT-PCR Negative (Negative); Influenza B QL RT-PCR Negative (Negative); RSV RNA, RT-PCR Negative (Negative)
[2024-01-22 10:36] LABS: Alanine Aminotransferase 41 U/L (6-50); Albumin Level 4.3 g/dL (3.5-5.1); Alkaline Phosphatase 74 U/L (38-126); Anion Gap 10 mmol/L (4-12); Aspartate Amino Transferase 43 U/L (17-59); Bilirubin,Total 0.5 mg/dL (0.2-1.3); Blood Urea Nitrogen 17 mg/dL (9-20); Calcium 9.2 mg/dL (8.4-10.2); Carbon Dioxide 24 mmol/L (22-30); Chloride 101 mmol/L (98-107); Estimated Glomerular Filt Rate > 60; Glucose 114 mg/dL (65-110); Osmolality Calculated 282 mOsm/kg (285-295); Potassium 4.4 mmol/L (3.4-5.0); Sodium 135 mmol/L (137-145)
[2024-01-22 10:44] LABS: NT Pro B Type Natriuretic Pept 705 pg/mL (19.9-100)
== END 2024-01-22 09:11 | disposition home or self-care (01) ==
LOC: CHSLAB 09:14
PROVIDERS: PCP Internal Medicine; Visit Provider Internal Medicine
DX: U07.1 COVID-19 (principal); R05.9 Cough, unspecified; R06.2 Wheezing
CPT/HCPCS: 36415; 71046; 80053; 83880; 85025; 87637

== ENCOUNTER 2024-02-04 06:56 | Outpatient (CLI) | payer MEDICARE, SELFPAY ==
[2024-02-04 07:30] LABS: Add Urine Microscopic? YES; Appearance Urine Clear (Clear); Basophils Absolute Auto 0.03 K/mm3 (0.00-0.10); Basophils Percent Auto 0.5 % (0.0-1.0); Bilirubin Urine Negative (Negative); Blood Urine Negative (Negative); Color Urine Yellow (Yellow); Eosinophils Absolute Auto 0.09 K/mm3 (0.02-0.50); Eosinophils Percent Auto 1.6 % (1.0-6.0); Glucose Urine UA Negative (Negative); Hemoglobin 13.9 g/dL (12.4-15.3); Immature Granulocyte Absolute 0.08 K/mm3 (0.00-0.00); Immature Granulocyte Percent A 1.4 % (0.0-0.0); Ketones Urine Negative (Negative); Leukocyte Esterase Ur Negative (Negative); Lymphocytes Absolute Auto 1.24 K/mm3 (1.10-4.50); Lymphocytes Percent Auto 21.7 % (18.0-42.0); Mean Corpuscular HGB Conc 35.6 g/dL (32-36); Mean Corpuscular Hemoglobin 31.7 pg (27.0-31.0); Monocytes Absolute Auto 0.68 K/mm3 (0.10-0.90); Monocytes Percent Auto 11.9 % (2.0-11.0); Neutrophils Absolute Auto 3.59 K/mm3 (1.70-7.20); Neutrophils Percent Auto 62.9 % (50.0-70.0); Nitrate Urine Positive (Negative); Platelet Count Result 157 K/mm3 (150-420); Protein Urine Trace (Negative); Red Blood Count 4.38 M/mm3 (4.70-6.10); Red Cell Distribution Width 11.6 % (11.6-14.4); Specific Grav Ur >= 1.030 (1.010-1.020); White Blood Count 5.7 K/mm3 (4.8-10.8); pH Urine 5.5 (5.0-8.0)
[2024-02-04 07:37] LABS: RBC Urine None seen /hpf (0-2); WBC Urine None seen /hpf (0-3)
[2024-02-04 07:38] LABS: Bacteria Urine Trace /hpf; Hemoglobin A1C 6.3 % (<5.7); Mucus Urine Moderate /lpf
[2024-02-04 07:43] LABS: Creatinine Urine 301.26 mg/dL (40-278); MALB Creatinine Ratio 12.2 mg/g (0-30)
[2024-02-04 08:10] LABS: Alanine Aminotransferase 56 U/L (16-63); Albumin Level 3.4 g/dL (3.4-5.0); Alkaline Phosphatase 88 U/L (46-116); Anion Gap 9 mmol/L (4-12); Aspartate Amino Transferase 22 U/L (15-37); Bilirubin,Total 0.4 mg/dL (0.00-1.00); Blood Urea Nitrogen 23 mg/dL (7-18); Calcium 8.4 mg/dL (8.5-10.1); Carbon Dioxide 27 mmol/L (21-32); Chloride 100 mmol/L (98-108); Cholesterol 159 mg/dL (0-200); Creatine Kinase 43 U/L (39-308); Estimated Glomerular Filt Rate 50; Free T3 2.36 pg/mL (2.18-3.98); Free T4 Free Thyroxine 1.01 ng/dL (0.76-1.46); Glucose 140 mg/dL (70-99); HDL Direct 32 mg/dL (40-60); LDL Cholesterol Calculated 70 mg/dL (<130); NT Pro B Type Natriuretic Pept 459 pg/mL (0-450); Osmolality Calculated 287 mOsm/kg (285-295); Potassium 4.3 mmol/L (3.5-5.1); Sodium 136 mmol/L (136-145); Thyroid Stimulating Hormone 2.99 uIU/mL (0.36-3.74); Total Protein 6.2 g/dL (6.4-8.2); Triglycerides 286 mg/dL (0-150)
== END 2024-02-04 06:57 | disposition home or self-care (01) ==
LOC: CHSLAB 06:58
PROVIDERS: PCP Internal Medicine; Visit Provider Internal Medicine
DX: I25.10 Atherosclerotic heart disease of native coronary artery without angina pectoris (principal); R53.82 Chronic fatigue, unspecified; E11.59 Type 2 diabetes mellitus with other circulatory complications; I10 Essential (primary) hypertension; E78.2 Mixed hyperlipidemia; R06.2 Wheezing
CPT/HCPCS: 36415; 80053; 80061; 81001; 82043; 82550; 83036; 83880; 84439; 84443; 84481; 85025

== ENCOUNTER 2024-03-09 07:47 | Outpatient (CLI) | payer MEDICARE, SELFPAY ==
--- NOTE | ~2024-03-09 | CT_ITS ---
EXAMINATION: CT abdomen pelvis w con DATE: 03/09/2024 08:54 INDICATION: Rectal mass. Rectal pain. TECHNIQUE: Computed tomography (CT) of the abdomen and pelvis was performed with 100 mL Omnipaque 350 intravenous contrast. Automated exposure control and iterative reconstruction technique were employe d. The dose-length product was 1088.92 mGy-cm. COMPARISON: CT abdomen and pelvis 04/29/2018 FINDINGS: The visualized portions of the lung bases are clear without pneumonia or pleural effusion. The heart size is normal. No pericardial effusion. There are coronary artery calcifications. There is a 5 mm cyst in the liver. There are 3 hypodense masses in the liver measuring up to 2.0 cm. The gall bladder, spleen, pancreas, and adrenal glands are normal. There is cortical thinning of the kidneys. Between the bladder and rectum, there is a 4.5 x 3.4 cm mass centered to the right of midline. There is a 2.1 x 1.9 cm presacral mass to the right of midline. There is mild perirectal lymphadenopathy. T here is a 1.1 x 1.1 cm mass superior to the bladder on the left. There is an umbilical hernia contain ing fat. There is no free intraperitoneal fluid. There is calcified atherosclerosis of the aorta and many of the other arteries. There is a right inguinal hernia containing nonobstructed small bowel. Th e appendix is normal. There is a left inguinal hernia containing fat. There is severe lumbar spondylo sis. Thoracolumbar levoscoliosis is noted. IMPRESSION: 1. 4.5 x 3.4 cm mass centered to the right of midline between the bladder and rectum, consistent with recurrent prostate cancer. 2. Perirectal lymphadenopathy, pelvic masses, and liver masses, consistent with metastatic disease. 3. Right inguinal hernia containing nonobstructed small bowel. Reviewed, dictated and finalized at location A. IMPRESSION: 1. 4.5 x 3.4 cm mass centered to the right of midline between the bladder and r ectum, consistent with recurrent prostate cancer. 2. Perirectal lymphadenopathy, pelvic masses, and liver masses, consistent with metastatic disease. 3. Right inguinal hernia containing nonobstructed small bowel.
[2024-03-09 08:11] LABS: Estimated Glomerular Filt Rate > 60
== END 2024-03-09 07:48 | disposition home or self-care (01) ==
PROVIDERS: PCP Internal Medicine; Visit Provider Urology
DX: K62.89 Other specified diseases of anus and rectum (principal); R59.0 Localized enlarged lymph nodes; K40.90 Unilateral inguinal hernia, without obstruction or gangrene, not specified as recurrent; R19.09 Other intra-abdominal and pelvic swelling, mass and lump
CPT/HCPCS: 74177; Q9967

== ENCOUNTER 2024-03-12 12:02 | Outpatient (CLI) | payer MEDICARE, SELFPAY ==
--- NOTE | ~2024-03-12 | PE_ITS ---
EXAMINATION: PET_PETPSMAST_PT DATE: 03/12/2024 14:39 INDICATION: Prostate cancer. TECHNIQUE: 4.846 mCi of Ga-68 gozetotide was administered intravenously. Low dose computed tomography (CT) images were acquired from the base of the brain to the proximal thighs for attenuation correcti on and anatomic localization. Automated exposure control was employed. Dose-length product (DLP) was 1220 mGy-cm. Positron emission tomography (PET) images were acquired in the same distribution. COMPARISON: CT abdomen and pelvis 03/09/2024 FINDINGS: Head/neck: There are likely changes of ocular lens replacement surgeries. There are no pathologically enlarged lymph nodes. There are changes of anterior fusion procedure in cervical spine. Chest: There is mild scarring at the lung apices. No pleural effusion. The heart size is normal. No p ericardial effusion. There are coronary artery calcifications. There is sclerosis in the manubrium of the sternum with increased activity. Abdomen/pelvis/proximal thighs: There are 3 hypodense masses in the liver measuring up to 2.0 cm. The background liver activity precludes evaluation of uptake in these masses. The gallbladder, spleen, p ancreas, adrenal glands, and kidneys are normal. There is calcified atherosclerosis of the aorta and many of the other arteries. There is a right inguinal hernia containing nonobstructed small bowel. Th ere is a left inguinal hernia containing fat. There is diverticulosis of the colon without evidence o f diverticulitis. There are no dilated loops of bowel. The appendix is normal. There is a 4.5 x 3.4 c m mass between the bladder and rectum centered to the right of midline with maximum SUV of 77.1. Ther e is a 2.1 x 1.9 cm presacral mass to the right of midline with increased activity. There is a 1.1 x 1.1 cm mass superior to the bladder on the left with increased activity. There are enlarged perirecta l lymph nodes without increased activity. There is no free intraperitoneal fluid. IMPRESSION: 1. Pelvic masses and sternal mass with increased activity, consistent with metastatic disease. Liver masses, consistent with metastatic disease. 2. Right inguinal hernia containing nonobstructed small bowel. Reviewed, dictated and finalized at location A. IMPRESSION: 1. Pelvic masses and sternal mass with increased activity, consistent with meta static disease. Liver masses, consistent with metastatic disease. 2. Right inguinal hernia containing nonobstructed small bowel.
== END 2024-03-12 12:03 | disposition home or self-care (01) ==
PROVIDERS: PCP Internal Medicine; Visit Provider Urology
DX: C61 Malignant neoplasm of prostate (principal); K40.90 Unilateral inguinal hernia, without obstruction or gangrene, not specified as recurrent
CPT/HCPCS: 78815; A9596

== ENCOUNTER 2024-03-29 00:29 | Day surgery (SDC) | payer MEDICARE, SELFPAY ==
[2024-03-23 09:46] VITALS: BMI 28.5
[2024-03-29 11:09] VITALS: BP 183/62; PULSE 57; RESP 16; TEMP 35.9; O2SAT 100; BMI 28.3
[2024-03-29] MEDS: LACTATED RINGERS 1,000 ML 150 ML IV CONT (11:19)
[2024-03-29 11:20] LABS: Glucose Point of Care 126 mg/dl (65-105)
--- NOTE | 2024-03-29 12:25 | P.PNAN_ITS ---
Anes - Initial Pre Proc Eval Procedure: Operation Date: 03/29/24 12:30 Proposed Procedures p Colonoscopy - Kevin Montgomery MD Date/Time: 03/29/24 12:25 Surgeon: Kevin Montgomery MD Pre Op Diagnosis: malignant neoplasm of prostate Patient Data Age: 78 Gender: M Height: 1.83 m Weight: 94.7 kg Last Vital Signs Temp 35.9 C L 03/29/24 11:09 Pulse 57 L 03/29/24 11:09 Resp 16 03/29/24 11:09 BP 183/62 H 03/29/24 11:09 Pulse Ox 100 03/29/24 11:09 O2 Del Method Room Air 03/29/24 11:09 Allergies Allergy/AdvReac Type Severity Reaction Status Date / Time hydrocodone Allergy Severe ITCHING Verified 03/29/24 11:02 codeine Allergy Intermediate Hives Verified 03/29/24 11:02 lisinopril Allergy Intermediate Swelling Verified 03/29/24 11:02 losartan Allergy Intermediate Swelling Verified 03/29/24 11:02 Home Medications Medication Instructions Recorded Confirmed Type alprazolam 0.25 mg tablet 0.25 mg PO PRN PRN Anxiety 10/14/19 03/29/24 History clonidine HCl 0.1 mg tablet 0.2 mg PO BID 10/14/19 03/29/24 History lovastatin 40 mg tablet 40 mg PO HS 10/14/19 03/29/24 History metformin 500 mg tablet 500 mg PO DAILY 10/14/19 03/29/24 History nifedipine 30 mg tablet,extended 30 mg PO DAILY 10/14/19 03/29/24 History release nitroglycerin 0.4 mg sublingual 0.4 mg sublingual PRN PRN Chest 10/14/19 03/29/24 History tablet Pain omeprazole 40 mg capsule,delayed 40 mg PO DAILY 10/14/19 03/29/24 History release trazodone 50 mg tablet 50 mg PO HS 10/14/19 03/29/24 History aspirin 81 mg tablet,delayed 81 mg PO DAILY 03/23/24 03/29/24 History release carvedilol 25 mg tablet 25 mg PO BID 03/23/24 03/29/24 History multivit with minerals-iron 18 1 tablet PO DAILY 03/23/24 03/29/24 History mg-folic ac 400 mcg-vit K 25 mcg tablet (Adults Multivitamin) spironolactone 50 mg tablet 50 mg PO DAILY 03/23/24 03/29/24 History tramadol 50 mg tablet 50 mg PO Q8H PRN Pain 03/23/24 03/29/24 History Laboratory Tests 03/29/24 11:14 POC Capillary Glucose 126 H mg/dl (65-105) Patient hx anesthesia problems: none Family hx anesthesia problems: none Results Review: All pre-operative results and documents have been reviewed as part of the pre- operative evaluation. FORMERLY [facility], [facility] Past Medical History Medical History CAD (coronary artery disease) Diabetes type 2, controlled GERD (gastroesophageal reflux disease) History of heart attack HTN (hypertension) Hyperlipidemia Prostate cancer Rectal mass Rectal pain Surgical History Surgical History History of coronary artery stent placement History of prostatectomy Social History Social History Smoking packs per day: 1 Smoking cigarettes per day: 20.0 Years smoked: 40 Smoking pack-years: 40.00 Smoking status: Former smoker Alcohol intake: current Drinks per week: 3 Alcohol use details: WINE Substance use: never Substance use type: does not use Lack of Transportation: No Lack of Food: Never True Concerned About Future Housing: No Difficulty Paying Gas/Electric Bills: No Difficulty Paying for Meds: No Currently Unemployed: No Education: High School Diploma/GED Difficulty w/ Childcare or Family Care: No Living arrangements: with family Spiritual care concerns: No Anes - Eval Final PreProcedure Day of Procedure 03/29/24 12:25 Patient weight: normal Heart: regular rate and rhythm Lungs: clear to auscultation Airway: Mallampati scale class II Neurological: alert and oriented Last oral intake: >/= 8 hours ASA classification: III Emergent: no Anesthetic plan: proceed Anesthesia type and monitoring: general GIVS and standard monitoring Results Review: All pre-operative results and documents have been reviewed as part of the pre- operative evaluation. Informed Consent: The patient's anesthetic plan and its attendant risks and benefits were discussed with the patient/family/POA. Questions were solicited and answers provided to the satisfaction of the patient/family/POA.
--- NOTE | 2024-03-29 12:30 | PM.IMHP ---
H&P: HPI History of Present Illness Date/Time: 03/29/24 12:30 Chief Complaint: history of colon polyps Narrative: The patient has a history of colonic polyps, the last colonoscopy was 5 years ago. He had 4 polyps. Review of Systems Review of Systems: All systems reviewed & are unremarkable except as noted in HPI and below PMFSH Past Medical History Medical History CAD (coronary artery disease) Diabetes type 2, controlled GERD (gastroesophageal reflux disease) History of heart attack HTN (hypertension) Hyperlipidemia Prostate cancer Rectal mass Rectal pain Surgical History Surgical History History of coronary artery stent placement History of prostatectomy Social History Social History Smoking packs per day: 1 Smoking cigarettes per day: 20.0 Years smoked: 40 Smoking pack-years: 40.00 Smoking status: Former smoker Alcohol intake: current Drinks per week: 3 Alcohol use details: WINE Substance use: never Substance use type: does not use Lack of Transportation: No Lack of Food: Never True Concerned About Future Housing: No Difficulty Paying Gas/Electric Bills: No Difficulty Paying for Meds: No Currently Unemployed: No Education: High School Diploma/GED Difficulty w/ Childcare or Family Care: No Living arrangements: with family Spiritual care concerns: No Meds Home Medications and Allergies Home Medications Medication Instructions Recorded Confirmed Type alprazolam 0.25 mg tablet 0.25 mg PO PRN PRN Anxiety 10/14/19 03/29/24 History clonidine HCl 0.1 mg tablet 0.2 mg PO BID 10/14/19 03/29/24 History lovastatin 40 mg tablet 40 mg PO HS 10/14/19 03/29/24 History metformin 500 mg tablet 500 mg PO DAILY 10/14/19 03/29/24 History nifedipine 30 mg tablet,extended 30 mg PO DAILY 10/14/19 03/29/24 History release nitroglycerin 0.4 mg sublingual 0.4 mg sublingual PRN PRN Chest 10/14/19 03/29/24 History tablet Pain omeprazole 40 mg capsule,delayed 40 mg PO DAILY 10/14/19 03/29/24 History release trazodone 50 mg tablet 50 mg PO HS 10/14/19 03/29/24 History aspirin 81 mg tablet,delayed 81 mg PO DAILY 03/23/24 03/29/24 History release carvedilol 25 mg tablet 25 mg PO BID 03/23/24 03/29/24 History multivit with minerals-iron 18 1 tablet PO DAILY 03/23/24 03/29/24 History mg-folic ac 400 mcg-vit K 25 mcg tablet (Adults Multivitamin) spironolactone 50 mg tablet 50 mg PO DAILY 03/23/24 03/29/24 History tramadol 50 mg tablet 50 mg PO Q8H PRN Pain 03/23/24 03/29/24 History Allergies Allergy/AdvReac Type Severity Reaction Status Date / Time hydrocodone Allergy Severe ITCHING Verified 03/29/24 11:02 codeine Allergy Intermediate Hives Verified 03/29/24 11:02 lisinopril Allergy Intermediate Swelling Verified 03/29/24 11:02 losartan Allergy Intermediate Swelling Verified 03/29/24 11:02 Vital Signs Vital Signs - 24 hr 03/29/24 11:09 Temperature 96.6 F L Pulse Rate 57 L Respiratory Rate 16 Blood Pressure 183/62 H Pulse Oximetry 100 Oxygen Delivery Room Air Exam Const: General: cooperative and healthy appearing Resp: Effort & Inspection: normal respiratory effort and able to speak in complete sentences Auscultation: clear to auscultation bilaterally Cardio: Rate: regular rate Rhythm: regular rhythm GI: Inspection: normal to inspection GI Palp: No No hepatosplenomegaly present Auscultation: normal bowel sounds Rectal Exam: deferred Skin: General skin exam: normal color Psych: Appearance: grossly normal Mental Status: mental status grossly normal Assessment and Plan Assessment and plan (1) History of colonic polyps: Code(s): Z86.0100 - Personal history of colon polyps, unspecified Status: Acute Assessment and Plan: The patient is deemed a good candidate for the procedure. Consent signed. Will proceed.
[2024-03-29 12:57] VITALS: BP 154/69; PULSE 55; RESP 19; O2SAT 98
[2024-03-29 13:07] VITALS: BP 147/68; PULSE 54; RESP 24; O2SAT 97
[2024-03-29 13:17] VITALS: BP 182/77; PULSE 58; RESP 19; O2SAT 97
== END 2024-03-29 13:30 | disposition home or self-care (01) ==
PROVIDERS: PCP Internal Medicine; Referring Provider Nurse Practitioner Family; Visit Provider Internal Medicine Gastroenterology
PROC: 0DJD8ZZ Inspection of Lower Intestinal Tract, Via Natural or Artificial Opening Endoscopic (ICD-10-PCS; CPT 45378; principal; 2024-03-29 12:30)
DX: Z12.11 Encounter for screening for malignant neoplasm of colon (principal); K63.5 Polyp of colon; K57.30 Diverticulosis of large intestine without perforation or abscess without bleeding; K64.0 First degree hemorrhoids; I25.10 Atherosclerotic heart disease of native coronary artery without angina pectoris; E11.9 Type 2 diabetes mellitus without complications; I10 Essential (primary) hypertension; I25.2 Old myocardial infarction; K21.9 Gastro-esophageal reflux disease without esophagitis; Z85.46 Personal history of malignant neoplasm of prostate; Z95.5 Presence of coronary angioplasty implant and graft; Z87.891 Personal history of nicotine dependence; Z79.84 Long term (current) use of oral hypoglycemic drugs; Z79.82 Long term (current) use of aspirin
CPT/HCPCS: 45385; 82948; 88305; J2003; J2704; J7120

== ENCOUNTER 2024-07-21 06:53 | Outpatient (CLI) | payer MEDICARE, SELFPAY ==
--- OUTSIDE RECORDS SUMMARY | 2024-07-21 06:57 | XMS_ITS | Encounter Summary ---
Author Organization [facility] Address [address] [place] [address] Care Team Providers Care Classification And Treatment Director Name Role Phone Cristina Oliver MD Primary Care Provider [phone] Wilson Bullock MD Unavailable UnavailQuincy Hurst MD Unavailable [phone] Kenny Handley APRN Unavailable [phone] Encounter Details Date Type Department Care Team (Late st Contact Info) Description 01/13/2020 Abstract [facility] [address] [place] [address] Abstract, Doc [facility] Social History Tobacco Use Types Packs/Day Years Used Date Smoking Tobacco: Former Cigarettes Q uit: 12/29/2006 Smokeless Tobacco: Never Alcohol Use Standard Drinks/Week Comments Yes 0 (1 standard drink = 0.6 oz pur e alcohol) occasionally Sex and Gender Information Value Date Recorded Sex Assigned at Male 06/01/2024 7:55 AM ONLINE COMMUNICATIONS MANAGER Legal Sex Male 10:30 PM CDT Gender Identity Not on file Sexual Orientation Not on file 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 Not on file Not on file Not o n file documented as of this encounter Plan of Treatment Not on file documented as of this encounter Visit Diagnoses Not on filedocumented in this encounter Additional Health Concerns Infection Onset Date Last Indicated Resolved Time COVID-19 Rule Out 06/03/2020 06/03/2020 06/04/2020 5:52 PM ONLINE COMMUNICATIONS MANAGER documented as of this encounter Care Teams Classification And Treatment Director Relationship Specialty Start Date End Date Cristina Oliver MD [address] [place] [id number] PCP - General INTERNAL MEDICINE 02/13/16 Wilson Bullock MD [address] [place] [address] [employer] Officer CARDIOVASCULAR DISEASE 02/13/16 Quincy Romero MD [address] [place] [id number] Consulting Physician INTERVENTIONAL CARDIOLOGY 08/21/22 Kenny Handley APRN [address] [place] [address] [address] Nurse Practitioner NURSE PRACTITIONER 03/20/23 documented as of this encounter
--- OUTSIDE RECORDS SUMMARY | 2024-07-21 06:57 | XMS_ITS | Clinical Summary ---
Author Organization [facility] Address [facility] [place] [address] Care Team Providers Care Media Analyst Name Role Phone Cristina Oliver MD Primary Care Provider [phone] Wilson Bullock MD Unavailable UnavailQuincy Hurst MD Unavailable [phone] Kenny Handley EMAIL PRODUCTION CONSULTANT Unavailable [phone] Allergies Active Allergy Reactions Criticality Noted Date Comments Atorvastatin Other (see comment) High 11/30/2017 States he develops very high Liver function tests. Codeine Hives 06/02/2020 Lisinopril Swelling 02/29/2016 Losartan Swelling 02/29/2016 Propoxyphene Itching 02/29/2016 Spironolactone GI Upset 02/29/2016 Medications Multiple Vitamins-Minera ls (PX COMPLETE SENIOR MULTIVITS) Tab Take 1 tablet by mouth daily. 5 Active trazodone 50 MG tablet Take 1 tablet (50 mg total) by mouth nightly at bedtime. 5 Active aspirin EC (ECOTRIN) 81 MG tablet Take 1 tablet (81 mg total) by mouth daily. Active ALPRAZolam 0.25 MG tablet Take 1 tablet (0.25 mg total) by mouth 2 (two) times daily as needed for Sleep. Active nitroglycerin (NITROSTAT) 0.[address] 1 tablet (0.4 mg total) under the tongue every 5 (five) minutes as needed for Chest Pain. 25 tablet 5 3 Active lovastatin (MEVACOR) 40 MG tablet Take 1 tablet (40 mg total) by mouth nightly at bedtime. 90 tablet 3 4 Active NIFEdipine ER (ADALAT CC) 30 MG 24 hr tablet Take 1 tablet (30 mg total) by mouth daily. 90 tablet 3 4 Active omeprazole (PRILOSEC) 40 MG capsule Take 1 capsule (40 mg total) by mouth daily. 90 capsule 3 4 Active cloNIDine (CATAPRES) 0.1 MG tablet Take 2 tablets (0.2 mg total) by mouth 2 (two) times daily. 360 tablet 3 4 Active albuterol sulfate HFA 108 (90 Base) MCG/ACT inhaler Inhale 1 puff into the lungs every 6 (six) hours as needed. 4 Active NUBEQA 300 MG tablet Take 1 tablet (300 mg total) by mouth 2 (two) times daily. 5 Active ticagrelor (BRILINTA) 90 mg tablet Take 1 tablet (90 mg total) by mouth 2 (two) times daily. 180 tablet 3 5 Active carvedilol (COREG) 12.5 MG tablet Take 1 tablet (12.5 mg total) by mouth 2 (two) times daily. 180 tablet 3 5 Active carvedilol (COREG) 12.5 MG tablet Take 1 tablet (12.5 mg total) by mouth 2 (two) times daily for 30 days. 60 tablet 5 07/02/19 25 Discontinu ed(Reorder ) ticagrelor (BRILINTA) 90 mg tablet Take 1 tablet (90 mg total) by mouth 2 (two) times daily for 30 days. 60 tablet 5 07/02/19 25 Discontinu ed(Reorder ) Active Problems Problem Noted Date Diagnosed Date Chronic diastolic (congestiv e) heart failure ([facility]) 03/19/2023 Long-term use of high-risk medication 11/08/2019 Bilateral carotid artery stenosis 01/14/2019 Acute non-ST elevation myoca rdial infarction (NSTEMI) ([facility]) 12/01/2017 Overview (12/04/2017): lateral wall Unstable angina ([facility]) 11/30/2017 Acute non-ST elevation myoca rdial infarction (NSTEMI) ([facility]) 02/06/2017 Hx of non-ST elevation myocardial infarction ([facility]) 02/02/2017 Dyspnea on exertion 09/19/2016 Positive cardiac stress test 09/19/2016 Renal artery stenosis 02/17/2009 Overview (02/29/2016): bilateral renal artery bare metal stenting Status post coronary artery stent placement 07/18 Overview (02/29/2016): 90% distal LAD Status post placement of bare metal coronary art odalys stent 06/19/1996 Overview (02/29/2016): proximal and mid left circumflex at [facility] Benign essential hypertension CAD (coronary artery disease) Chronic kidney disease GERD (gastroesophageal reflux disease) Hyperlipidemia LVH (left ventricular hypertrophy) Carotid stenosis, asymptomatic, bilateral Encounters Date Type Department Care Team Description 06/10/2024 9:15 AM WATER/WASTEWATER PROJECT ENGINEER Office Visit [facility] [address] [place] [address] Quincy Romero MD Follow Up 06/10/2024 Telephone [facility] [address] [place] [address] Quincy Romero MD Refill Request 06/10/2024 Travel 06/07/2024 [facility] [address] [place] [address] Quincy Romero MD Reschedule 06/07/2024 Hospital Follow-up Call [facility] [address] [place] [address] Svetlana Damon RN 06/01/2024 10:09 PM WATER/WASTEWATER PROJECT ENGINEER - 06/03/2024 12:53 PM WATER/WASTEWATER PROJECT ENGINEER Hospital Encounter [facility] [address] [place] [address] Lanre Mcwilliams MD Sheikh, Omer S, MD Majoka, Umair S, MD Discharge Disposition: Home or Self Care (Routine Discharge) 06/01/2024 7:42 AM WATER/WASTEWATER PROJECT ENGINEER - 06/01/2024 8:50 PM WATER/WASTEWATER PROJECT ENGINEER Emergency [facility] [address] [place] [address] Linda Soriano, Chest Pain Discharge Disposition: Intermediate Care Facility with Planned Inpatient Readmission 06/01/2024 Travel from Last 3 Months Immunizations Name Administration Dates Next Due Influenza (Generic) 03/11/2014 Influenza Adult (Generic) 03/04/2018,02/07/2017, 02/22/2016,01/19/2015 Pneumococcal (Pneumovax 23) 02/25/2018, 2 Pneumococcal (Prevnar 13) 01/19/2015 Tdap (Generic) 04/27/2010 Family History Medical History Relation Comments Coronary artery disease Father Heart Attack Father Peripheral vascular disease Father Coronary artery disease Mother Peripheral vascular disease Mother old age Mother unknown Sister Relation Status Comments Father (Age 49) Maternal Grandfather Maternal Grandmother Mother (Age 82) Paternal Grandfather Paternal Grandmother Sister Alive Social History Tobacco Use Types Packs/Day Years Used Date Smoking Tobacco: Former Cigarettes Q uit: 12/29/2006 Smokeless Tobacco: Never Tobacco Cessation:Counseling Given: Not Answered Alcohol Use Standard Drinks/Week Comments Yes 0 (1 standard drink = 0.6 oz pur e alcohol) Occasionally [facility] Utilities Answer Date Recorded In the past 12 months has e [employer], gas, oil, or water [employer] threatened to shut off services in your home? No 06/02/2024 Humiliation, Afraid, Rape, and Kick questionnair e Answer Date Recorded Within the last year, have y ou been afraid of your partner or ex-partner? No 06/02/2024 Within the last year, have y ou been humiliated or emotionally abused in other ways by your partner or ex-partner? No Within the last year, have y ou been kicked, hit, slapped, or otherwise physically hurt by your partner or ex-partner? No 06/02/2024 Within the last year, have y ou been raped or forced to have any kind of sexual activity by your partner or ex-partner? No 06/02/2024 Overall Financial Resource Strain (CARDIA) Answe r Date Recorded How hard is it for you to pa y for the very basics like food, housing, medical care, and heating? Not hard at all 06/02/2024 Hunger Vital Sign Answer Date Recorded Within the past 12 months, y ou worried that your food would run out before you got the money to buy more. Never true 06/02/19 25 Within the past 12 months, t he food you bought just didn't last and you didn't have money to get more. Never true 06/02/2024 PRAPARE - Transportation Answer Date Re corded In the past 12 months, has l ack of transportation kept you from medical appointments or from getting medications? No 05/19 In the past 12 months, has l ack of transportation kept you from meetings, work, or from getting things needed for daily living? No 06/02/2024 Housing Stability Vital Sign Answer Brian e Recorded In the last 12 months, was t here a time when you were not able to pay the mortgage or rent on time? No 06/02/2024 In the past 12 months, how m any times have you moved where you were living? 2 06/02/2024 At any time in the past 12 m [facility], were you homeless or living in a mcc (including now)? 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 Not on file Not on file Last Filed Vital Signs Vital Sign Reading Time Taken Comments Blood Pressure 120/58 06/10/2024 8:52 AM WATER/WASTEWATER PROJECT ENGINEER Pulse 64 06/10/2024 8:52 AM WATER/WASTEWATER PROJECT ENGINEER Temperature 36.4 C (97.5 F) 06/03/2024 8:24 AM WATER/WASTEWATER PROJECT ENGINEER Respiratory Rate 16 06/10/2024 8:52 AM WATER/WASTEWATER PROJECT ENGINEER Oxygen Saturation 99% 06/10/2024 8:52 AM WATER/WASTEWATER PROJECT ENGINEER Inhaled Oxygen Concentration - - Weight 95.3 kg (210 lb 3.2 oz) 06/10/2024 8:52 A M WATER/WASTEWATER PROJECT ENGINEER Height 182.9 cm (6') 06/10/2024 8:52 AM WATER/WASTEWATER PROJECT ENGINEER Body Mass Index 28.51 06/10/2024 8:52 AM WATER/WASTEWATER PROJECT ENGINEER Plan of Treatment Health Maintenance Due Date Last Done Comments Hepatitis C 1964 Zoster Vaccines (1 of 2) 1996 Annual Medicare Wellness Visit 2011 DTaP, Tdap and Td Vaccines (2 - Td or Tdap) 04/27/2020 04/27/2010 RSV Immunization or 60+ Years (1 - 1-dose 75+ series) 2021 COVID-19 Vaccine ( - season) 2024 Influenza Adult (#1) 2024 03/04/2018, 02/07/2017, 02/22/2016, Additional history exists Pneumococcal Vaccine: 65+ Years Completed 02/25/2018, 01/19/2015, 05/04/2012 Meningococcal B Vaccine Aged Out No l onger eligible based on patient's age to complete this topic Meningococcal Vaccine Aged Out No sandy reza eligible based on patient's age to complete this topic RSV Immunizations Under 20 Months Aged Out No longer eligible based on patient's age to complete this topic Medical Devices Implanted Type Area Wood Boatbuilder Apprentice Device Identifier Shelf Expiration Date Model / Serial / Lot Iol [employer] Li61ao - [id number] Implanted:Qty: 1 on 06/06/2020 by Troy Reddy MD at [facility] Lens Right: Eye [employer] [id number] 02/15/2023 [id number] / [id number] Description:Lens verified pe r surgeon Stent- 7 Implanted:Qty: 1 on 02/03/2017 by David Braun MD Stent Left: Heart [employer] SYNE RGY MR SHERIF / / Description:Synergy MR SHERIF S tent Cv Muhammad Xience 2.5mm X 28mm Sherif Mid Om3-06/02/2024 Implanted:05/19 by Quincy Romero MD (Quantity not on file) Stent Coronary [employer] 02/04/2026 [id number] / [id number] / Cv Muhammad Xience 3.0mm X 28mm Sherif Mid Circ-06/02/2024 Implanted:05/19 by Quincy Romero MD (Quantity not on file) Stent Coronary LCX [employer] 08/06/2026 [id number] / [id number] / Procedures Procedure Name Priority Date/Time Associated Diagnosis Comments TROPONIN, QUANT TIMED 06/02/2024 12:58 PM WATER/WASTEWATER PROJECT ENGINEER XA LHC POSS Today 06/02/2024 11:42 AM WATER/WASTEWATER PROJECT ENGINEER POCT ACTIVATED CLOTTING TIME - ISTAT DOCKED DEVICE Routine 06/02/2024 11:12 AM WATER/WASTEWATER PROJECT ENGINEER HEMOGLOBIN, GLYCOSYLATED Routine 025 4:51 AM WATER/WASTEWATER PROJECT ENGINEER LIPID PANEL Routine 06/02/2024 4:51 AM WATER/WASTEWATER PROJECT ENGINEER TROPONIN, QUANT TIMED 06/02/2024 4:51 AM WATER/WASTEWATER PROJECT ENGINEER BASIC METABOLIC PANEL Routine 06/02/2024 4:51 AM WATER/WASTEWATER PROJECT ENGINEER CBC W/DIFF AUTOMATED Routine 06/02/2024 4:51 AM WATER/WASTEWATER PROJECT ENGINEER TROPONIN, QUANT Routine 06/01/2024 10:47 PM WATER/WASTEWATER PROJECT ENGINEER TROPONIN, QUANT STAT 06/01/2024 11:55 AM WATER/WASTEWATER PROJECT ENGINEER ECG 12-LEAD Routine 06/01/2024 8:55 AM WATER/WASTEWATER PROJECT ENGINEER ELECTROCARDIOGRAM REPORT Routine 025 8:55 AM WATER/WASTEWATER PROJECT ENGINEER XR CHEST PA+LAT STAT 06/01/2024 8:29 AM WATER/WASTEWATER PROJECT ENGINEER TROPONIN, QUANT STAT 06/01/2024 7:59 AM WATER/WASTEWATER PROJECT ENGINEER COMPREHENSIVE METABOLIC PANEL STAT 06/01/2024 7:59 AM WATER/WASTEWATER PROJECT ENGINEER CBC W/DIFF AUTOMATED STAT 06/01/2024 7:59 AM WATER/WASTEWATER PROJECT ENGINEER ECG 12-LEAD Routine 06/01/2024 7:48 AM WATER/WASTEWATER PROJECT ENGINEER ELECTROCARDIOGRAM REPORT Routine 025 7:48 AM WATER/WASTEWATER PROJECT ENGINEER from Last 3 Months Results * (ABNORMAL) TROPONIN, QUANT (06/02/2024 12:58 PM WATER/WASTEWATER PROJECT ENGINEER) Only the most recent of5 resultswithin the time period is included. TROPONIN I HIGH SENSITIVITY 154(H) 0 - 78 ng/L 06/02/2024 1:35 PM WATER/WASTEWATER PROJECT ENGINEER [facility] 06/02/2024 12:5 8 PM WATER/WASTEWATER PROJECT ENGINEER Song Alvarenga MD LABORATORY Final Result [facility] [address] [id number], [id number] * XA [facility] POSS (06/02/2024 11:42 AM WATER/WASTEWATER PROJECT ENGINEER) Anatomical Region Laterality Modality Cardiac Public Relations Sales Marketing 06/02/2024 10:0 5 AM WATER/WASTEWATER PROJECT ENGINEER Quincy Romero MD FIRE TRUCK DRIVER Final Res ult * (ABNORMAL) POCT ACTIVATED CLOTTING TIME - ISTAT DOCKED DEVICE (06/02/2024 11:12 AM WATER/WASTEWATER PROJECT ENGINEER) ACTIVATED CLOTTING TIME (ACT HMT OR LMT) 256(H) 74 - 137 SEC 06/02/2024 1:40 PM WATER/WASTEWATER PROJECT ENGINEER [facility] 06/02/2024 11:1 2 AM WATER/WASTEWATER PROJECT ENGINEER Dave Rollins MD POCT ORDERABLES - DEVICE Final Result Performing Organization Address [facility] Co de Phone Number [facility] [address] [place] [address], [id number] * (ABNORMAL) HEMOGLOBIN, GLYCOSYLATED (06/02/2024 4:51 AM WATER/WASTEWATER PROJECT ENGINEER) HGB A1C 5.9(H) <5.7 % 06/02/2024 5:19 AM [facility] ESTIMATED AVG GLUCOSE 123(H) 74 - 114 MG/DL 06/02/2024 5:19 AM [facility] 06/02/2024 4:51 AM WATER/WASTEWATER PROJECT ENGINEER Song Alvarenga MD LABORATORY Final Result Performing Organization Address [facility] de Phone Number [facility] [address] [place] [address], [id number] * (ABNORMAL) BASIC METABOLIC PANEL (06/02/2024 4:51 AM WATER/WASTEWATER PROJECT ENGINEER) SODIUM S/P/B 137 136 - 145 MMOL/L 06/02/2024 5:29 AM [facility] POTASSIUM S/P/B 3.9 3.5 - 5.1 MMOL/L 06/02/2024 5:29 AM [facility] CHLORIDE S/P/B 106 97 - 115 MMOL/L 06/02/2024 5:29 AM [facility] CO2 25.8 21.0 - 32.0 MMOL/L 06/02/2024 5:29 AM [facility] GLUCOSE 131(H) 74 - 106 MG/DL 06/02/2024 5:29 AM [facility] BUN 14 7 - 18 MG/DL 06/02/2024 5:29 AM [facility] CREATININE S/P/B 1.00 0.70 - 1.30 MG/DL 06/02/2024 5:29 AM [facility] CALCIUM S/P/B 9.2 8.5 - 10.1 MG/DL 06/02/2024 5:29 AM [facility] ANION GAP 5.2 2.0 - 10.0 MMOL/L 06/02/2024 5:29 AM [facility] OSMOLALITY (CALC) 286 MOSM/KG 025 5:29 AM [facility] Comment:REFERENCE RANGE NOT ESTABLISHED GFR ESTIMATE 77(L) >90 ML/MIN/1. 73 M2 06/02/2024 5:29 AM [facility] GFR NOTES GFR REFERENCE S: 06/02/2024 5:29 AM [facility] Comment: THE ESTIMATED GFR IS CALCULATED USING THE 2020 CKD-EPI EQUATION. THE FOLLOWING CATEGORIES FOR GRADING RENAL FUNCTION ARE RECOMMENDED BY THE INTERNATIONAL SOCIETY OF NEPHROLOGY (KDIGO 2012 CLINICAL PRACTICE GUIDELINE). G1,NORMAL OR HIGH: >89 ml/min/1.73 m2 G2,MILDLY DECREASED: 60-89 ml/min/1.73 m2 G3A,MILDLY TO MODERATELY DECREASED: 45-59 ml/min/1.73 m2 G3B,MODERATELY TO SEVERELY DECREASED: 30-44 ml/min/1.73 m2 G4,SEVERELY DECREASED: 15-29 ml/min/1.73 m2 G5,KIDNEY FAILURE: <15 ml/min/1.73 m2 06/02/2024 4:51 AM WATER/WASTEWATER PROJECT ENGINEER Song Alvarenga MD LABORATORY Final Result [facility] [address] [place] [address], [id number] * (ABNORMAL) LIPID PANEL (06/02/2024 4:51 AM WATER/WASTEWATER PROJECT ENGINEER) CHOLESTEROL 147 MG/DL 06/02/2024 5:29 AM WATER/WASTEWATER PROJECT ENGINEER [facility] Comment:DESIRABLE: <200 TRIGLYCERIDES 218 MG/DL 06/02/2024 5:29 AM [facility] Comment:200-499 HIGH HDL 35(L) >39 MG/DL 06/02/2024 5:29 AM [facility] LDL (CALCULATED) 68 MG/DL 06/02/19 5:29 AM [facility] Comment:<100 OPTIMAL VLDL CALCULATION 44 MG/DL 06/02/19 5:29 AM [facility] Comment:REFERENCE RANGE NOT ESTABLISHED CHOL/HDL RATIO 4.2 06/02/2024 5:29 AM [facility] Comment:REFERENCE RANGE NOT ESTABLISHED LDL/HDL 2.0 06/02/2024 5:29 AM [facility] Comment:REFERENCE RANGE NOT ESTABLISHED NON HDL CHOLESTEROL 112 MG/DL 06/02/2024 5:29 AM [facility] Comment:REFERENCE RANGE NOT ESTABLISHED 06/02/2024 4:51 AM WATER/WASTEWATER PROJECT ENGINEER Song Alvarenga MD LABORATORY Final Result [facility] [address] [place] [address], [id number] * (ABNORMAL) CBC W/DIFF AUTOMATED (06/02/2024 4:51 AM WATER/WASTEWATER PROJECT ENGINEER) Only the most recent of2 resultswithin the time period is included. WBC 4.44 4.00 - 10.80 x10'3/uL 06/02/2024 5:13 AM [facility] RBC 4.48(L) 4.50 - 6.10 x10'6/uL 06/02/2024 5:13 AM [facility] HGB 14.2 12.0 - 16.0 G/DL 06/02/2024 5:13 AM [facility] HCT 40.3 37.0 - 52.0 % 06/02/2024 5:13 AM [facility] MCV 90.0 78.0 - 100.0 FL 06/02/2024 5:13 AM [facility] MCH 31.7(H) 27.0 - 31.0 PG 06/02/2024 5:13 AM [facility] MCHC 35.2 33.0 - 36.0 G/DL 06/02/2024 5:13 AM [facility] RDW 12.1 11.5 - 14.5 % 06/02/2024 5:13 AM [facility] PLT 158 150 - 350 x10'3/uL 06/02/2024 5:13 AM [facility] MPV 9.5 7.4 - 10.4 FL 06/02/2024 5:13 AM [facility] DIFFERENTIAL TYPE AUTOMATED DIFFERENTIAL 06/02/2024 5:13 AM [facility] SEG NEUTROPHILS 65.7 % 5:13 AM [facility] LYMPHOCYTES 19.8 % 06/02/2024 5:13 AM [facility] MONOCYTES 10.8 % 06/02/2024 5:13 AM [facility] EOSINOPHILS 2.7 % 06/02/2024 5:13 AM [facility] BASOPHILS 0.5 % 06/02/2024 5:13 AM [facility] IMMATURE GRANS % 0.5 % 06/02/19 5:13 AM [facility] ABS. NEUTROPHILS 2.92 1.60 - 8.30 x10'3/uL 06/02/2024 5:13 AM [facility] ABS. LYMPHOCYTES 0.88 0.80 - 4.70 x10'3/uL 06/02/2024 5:13 AM [facility] ABS. MONOCYTES 0.48 0.00 - 1.50 x10'3/uL 06/02/2024 5:13 AM [facility] ABS. EOSINOPHILS 0.12 0.00 - 0.40 x10'3/uL 06/02/2024 5:13 AM WATER/WASTEWATER PROJECT ENGINEER [facility] ABS. BASOPHILS 0.02 0.00 - 0.20 x10'3/uL 06/02/2024 5:13 AM WATER/WASTEWATER PROJECT ENGINEER [facility] ABS. IMMATURE GRANULOCYTES 0.02 0.00 - 0.03 x10'3/uL 06/02/2024 5:13 AM WATER/WASTEWATER PROJECT ENGINEER [facility] ABS. NUCLEATED RBC'S 0.00 0.00 - 0.01 x10'3/uL 06/02/2024 5:13 AM WATER/WASTEWATER PROJECT ENGINEER [facility] NRBC % 0.0 % 06/02/2024 5:13 AM WATER/WASTEWATER PROJECT ENGINEER [facility] 06/02/2024 4:51 AM WATER/WASTEWATER PROJECT ENGINEER Song Alvarenga MD LABORATORY Final Result Performing Organization Address City/State/[facility] Co de Phone Number [facility] [address] [place] [address], [id number] * ECG 12 lead (06/01/2024 8:55 AM WATER/WASTEWATER PROJECT ENGINEER) Only the most recent of2 resultswithin the time period is included. 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: : 1945 Requested By: LINDA SORIANO Order Number: [id number] Reading MD: Chiqui Lafleur Measurements Intervals [place] Rate: 52 P: 61 CO: 174 QRS: -44 QRSD: 110 T: 62 QT: 445 QTc: 417 Interpretive Statements SINUS BRADYCARDIA LEFT AXIS DEVIATION LEFT VENTRICULAR HYPERTROPHY AND ST-T CHANGE ANTEROLATERAL MYOCARDIAL INFARCTION , OF INDETERMINATE AGE R/WASTEWATER PROJECT ENGINEER us Linda Soriano DO ECG ORDERABLES Final Res ult [facility] * EKG Reading (06/01/2024 8:55 AM WATER/WASTEWATER PROJECT ENGINEER) Only the most recent of2 resultswithin the time period is included. Linda Wall DO - 06/01/2024 8:55 AM WATER/WASTEWATER PROJECT ENGINEER Linda Soriano DO 06/01/2024 5:54 PM EKG Reading Date/Time: 06/01/2024 8:55 AM Performed by: Linda Soriano DO Authorized by: Linda Soriano DO Interpreted by ED physician Rhythm: sinus bradycardia Rate: bradycardic BPM: 52 QRS axis: left ST Depression: II Clinical impression: abnormal ECG us Linda Soriano DO [facility] Final Result * XR CHEST PA+LAT (06/01/2024 8:29 AM WATER/WASTEWATER PROJECT ENGINEER) Anatomical Region Laterality Modality Chest Radiographic Sharmaine ging 06/01/2024 8:30 AM WATER/WASTEWATER PROJECT ENGINEER Impressions 06/01/2024 8:31 AM WATER/WASTEWATER PROJECT ENGINEER IMPRESSION: No radiographic evidence of active chest disease. Ordered By: LINDA SORIANO Interpreted By: Mor Melvin MD, 06/01/2024 8:30 AM Narrative 06/01/2024 8:31 AM WATER/WASTEWATER PROJECT ENGINEER [address] [place] [address] Examination: XR CHEST PA+LAT Exam time: 06/01/2024 8:07 AM Clinical history: Chest pain Comparison: 11/30/2017 AP upright view Technique: Upright PA and lateral views Findings: Multiple external wires and leads. Cardiac silhouette and pulmonary vasculature are within normal limits. Lungs appear clear. No evidence of pleural effusion. No evidence of bronchial wall thickening or abnormal pulmonary interstitium. Anterior cervical fusion changes lower cervical spine. No evidence of pneumothorax. Overall, no radiographic evidence of active chest disease. Procedure Note Mor Melvin MD - 06/01/[address] [place] [address] Examination: XR CHEST PA+LAT Exam time: 06/01/2024 8:07 AM Clinical history: Chest pain Comparison: 11/30/2017 AP upright view Technique: Upright PA and lateral views Findings: Multiple external wires and leads. Cardiac silhouette andpulmonary vasculature are within normal limits. Lungs appear clear. Noevidence of pleural effusion. No evidence of bronchial wall thickening orabnormal pulmonary interstitium. Anterior cervical fusion changes lowercervical spine. No evidence of pneumothorax. Overall, no radiographicevidence of active chest disease. IMPRESSION: No radiographic evidence of active chest disease. Ordered By: LINDA SORIANO Interpreted By: Mor Melvin MD, 06/01/2024 8:30 AM us Linda Soriano DO GENERAL IMAGING Final Res ult * (ABNORMAL) COMPREHENSIVE METABOLIC PANEL (06/01/2024 7:59 AM WATER/WASTEWATER PROJECT ENGINEER) SODIUM S/P/B 137 136 - 145 MMOL/L 06/01/2024 8:22 AM WATER/WASTEWATER PROJECT ENGINEER [facility] POTASSIUM S/P/B 4.2 3.5 - 5.1 MMOL/L 06/01/2024 8:22 AM [facility] CHLORIDE S/P/B 101 98 - 107 MMOL/L 06/01/2024 8:22 AM [facility] CO2 24.9 21.0 - 32.0 MMOL/L 06/01/2024 8:22 AM [facility] GLUCOSE 177(H) 70 - 99 MG/DL 06/01/2024 8:22 AM [facility] Comment: FASTING GLUCOSE 100 TO 125 MG/DL IS CONSISTENT WITH IMPAIRED FASTING GLUCOSE. FASTING GLUCOSE >125 MG/DL IS CONSISTENT WITH DIABETES. RANDOM GLUCOSE >200 MG/DL WITH HYPERGLYCEMIC SYMPTOMS IS CONSISTENT WITH DIABETES. PER ADA GUIDELINES BUN 14 6 - 24 MG/DL 06/01/2024 8:22 AM [facility] CREATININE S/P/B 1.18 0.70 - 1.30 MG/DL 06/01/2024 8:22 AM [facility] CALCIUM S/P/B 9.0 8.4 - 10.5 MG/DL 06/01/2024 8:22 AM [facility] BILIRUBIN TOTAL S/P/B 0.8 0.2 - 1.0 MG/DL 06/01/2024 8:22 AM [facility] Comment: THIS ASSAY IS NOT RECOMMENDED FOR PATIENTS UNDERGOING TREATMENT WITH ELTROMBOPAG DUE TO THE POTENTIAL FOR FALSELY ELEVATED RESULTS. ALKALINE PHOSPHATASE S/P/B 84 45 - 115 U/L 06/01/2024 8:22 AM [facility] AST 18 15 - 37 U/L 06/01/2024 8:22 AM [facility] ALT 31 16 - 63 U/L 06/01/2024 8:22 AM [facility] TOTAL PROTEIN S/P/B 6.7 6.4 - 8.2 G/DL 06/01/2024 8:22 AM [facility] ALBUMIN S/P/B 3.8 3.4 - 5.0 G/DL 06/01/2024 8:22 AM [facility] ANION GAP 11.1 5.0 - 15.0 MMOL/L 06/01/2024 8:22 AM WATER/WASTEWATER PROJECT ENGINEER [facility] OSMOLALITY (CALC) 289 MOSM/KG 025 8:22 AM WATER/WASTEWATER PROJECT ENGINEER [facility] Comment:REFERENCE RANGE NOT ESTABLISHED GFR ESTIMATE 63(L) >89 ML/MIN/1. 73 M2 06/01/2024 8:22 AM WATER/WASTEWATER PROJECT ENGINEER [facility] GFR NOTES GFR REFERENCE S: 06/01/2024 8:22 AM WATER/WASTEWATER PROJECT ENGINEER [facility] Comment: THE ESTIMATED GFR IS CALCULATED USING THE 2020 CKD-EPI EQUATION. THE FOLLOWING CATEGORIES FOR GRADING RENAL FUNCTION ARE RECOMMENDED BY THE INTERNATIONAL SOCIETY OF NEPHROLOGY (KDIGO 2012 CLINICAL PRACTICE GUIDELINE). 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 us Linda Soriano DO LABORATORY Final Res ult [facility] [address] [place] [address], from Last 3 Months Insurance MEDICARE MEDICARE [facility] Advance Directives * DNR (Latest Code Status on File) Date Activated Date Inactivated Comments 06/02/2024 1:03 AM 06/03/2024 3:04 PM * Full Code Date Activated Date Inactivated Comments 06/01/2024 10:27 PM 06/02/2024 1:03 AM * Full Code Date Activated Date Inactivated Comments 12/01/2017 12:46 PM 12/01/2017 8:44 PM * Full Code Date Activated Date Inactivated Comments 11/30/2017 3:07 PM 12/01/2017 12:46 PM Healthcare Agents on File Name Relationship Healthcare Agent Relationshi p Communication Luis Daniel Funes III Step Child Health Care Agent Loy Buffard Step Child First Alternate Health Care Agent Fabian Escobar Son Second Alternate Health Care Agent Care Teams Media Analyst Relationship Specialty Start Date End Date Cristina Oliver MD [address] [place] [address] PCP - General INTERNAL MEDICINE 02/13/16 Wilson Bullock MD [address] [place] [address] [place] [employer] Fabricator CARDIOVASCULAR DISEASE 02/13/16 Quincy Romero MD [address] [place] [address] Consulting Physician INTERVENTIONAL CARDIOLOGY 08/21/22 Kenny Handley APRN [address] [facility] [address] [address] Nurse Practitioner NURSE PRACTITIONER 03/20/23
--- OUTSIDE RECORDS SUMMARY | 2024-07-21 06:58 | XMS_ITS | Encounter Summary ---
Author Organization [facility] Address [address] [place] [address] Care Team Providers Care Felt Cementer Name Role Phone Cristina Oliver MD Primary Care Provider [phone] Wilson Bullock MD Unavailable UnavailQuincy Hurst MD Unavailable [phone] Kenny Handley APRN Unavailable [phone] Encounter Details Date Type Department Care Team (Late st Contact Info) Description 03/17/2015 Abstract [facility] [place] [address] [place] [address] Wilson Bullock MD Social History Tobacco Use Types Packs/Day Years Used Date Smoking Tobacco: Former Cigarettes Q uit: 12/29/2006 Smokeless Tobacco: Never Alcohol Use Standard Drinks/Week Comments Yes 0 (1 standard drink = 0.6 oz pur e alcohol) occasionally Sex and Gender Information Value Date Recorded Sex Assigned at Male 06/01/2024 7:55 AM HEAD OF VISUAL MERCHANDISING Legal Sex Male 10:30 PM CDT Gender Identity Not on file Sexual Orientation Not on file 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 file Not on file Not o n file documented as of this encounter Plan of Treatment Not on file documented as of this encounter Visit Diagnoses Not on filedocumented in this encounter Additional Health Concerns Infection Onset Date Last Indicated Resolved Time COVID-19 Rule Out 06/03/2020 06/03/2020 06/04/2020 5:52 PM HEAD OF VISUAL MERCHANDISING documented as of this encounter Care Teams Felt Cementer Relationship Specialty Start Date End Date Cristina Oliver MD [address] [place] [phone] PCP - General INTERNAL MEDICINE 02/13/16 Wilson Bullock MD [address] [place] [address] [place] Material Liaison CARDIOVASCULAR DISEASE 02/13/16 Quincy Romero MD [address] [place] [address] Consulting Physician INTERVENTIONAL CARDIOLOGY 08/21/22 Kenny Handley APRN [address] [place] [address] [phone] Nurse Practitioner NURSE PRACTITIONER 03/20/23 documented as of this encounter
--- OUTSIDE RECORDS SUMMARY | 2024-07-21 06:58 | XMS_ITS | Encounter Summary ---
Author Organization [facility] Address [address] [place] [address] Care Team Providers Care Dry Cell Assembly Supervisor Name Role Phone Cristina Oliver MD Primary Care Provider [phone] Wilson Bullock MD Unavailable UnavailQuincy Hurst MD Unavailable [phone] Kenny Handley APRN Unavailable [phone] Encounter Details Date Type Department Care Team (Late st Contact Info) Description 01/14/2020 [facility] [address] [place] [address] Wilson Bullock MD Social History Tobacco Use Types Packs/Day Years Used Date Smoking Tobacco: Former Cigarettes Q uit: 12/29/2006 Smokeless Tobacco: Never Alcohol Use Standard Drinks/Week Comments Yes 0 (1 standard drink = 0.6 oz pur e alcohol) occasionally Sex and Gender Information Value Date Recorded Sex Assigned at Male 06/01/2024 7:55 AM CLERICAL ADJUDICATOR Legal Sex Male 10:30 PM CDT Gender Identity Not on file Sexual Orientation Not on file 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 Date 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 Not on file Not o n file documented as of this encounter Plan of Treatment Not on file documented as of this encounter Visit Diagnoses Not on filedocumented in this encounter Additional Health Concerns Infection Onset Date Last Indicated Resolved Time COVID-19 Rule Out 06/03/2020 06/03/2020 06/04/2020 5:52 PM CLERICAL ADJUDICATOR documented as of this encounter Care Teams Dry Cell Assembly Supervisor Relationship Specialty Start Date End Date Cristina Oliver MD [address] [place] [phone] PCP - General INTERNAL MEDICINE 02/13/16 Wilson Bullock MD [address] [place] [address] [place] Assistant Hairstylist CARDIOVASCULAR DISEASE 02/13/16 Quincy Romero MD [address] [place] [address] Consulting Physician INTERVENTIONAL CARDIOLOGY 08/21/22 Kenny Handley APRN [address] [place] [address] [phone] Nurse Practitioner NURSE PRACTITIONER 03/20/23 documented as of this encounter
--- OUTSIDE RECORDS SUMMARY | 2024-07-21 06:58 | XMS_ITS | Encounter Summary ---
Author Organization [facility] Address [facility] [place] [address] Care Team Providers Care Chicken Raiser Name Role Phone Cristina Oliver MD Primary Care Provider Wilson Bullock MD Unavailable UnavailQuincy Hurst MD Unavailable [phone] Kenny Handley APRN Unavailable [phone] Encounter Details Date Type Department Care Team (Late st Contact Info) Description 06/15/2019 Abstract [facility] [address] [place] [address] Abstract, Doc [facility] Social History Tobacco Use Types Packs/Day Years Used Date Smoking Tobacco: Former Cigarettes Q uit: 12/29/2006 Smokeless Tobacco: Never Alcohol Use Standard Drinks/Week Comments Yes 0 (1 standard drink = 0.6 oz pur e alcohol) occasionally Sex and Gender Information Value Date Recorded Sex Assigned at Male 06/01/2024 7:55 AM DONATIONS ATTENDANT Legal Sex Male 10:30 PM CDT Gender Identity Not on file Sexual Orientation Not on file 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 Date 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 Not on file Not o n file documented as of this encounter Plan of Treatment Not on file documented as of this encounter Procedures Procedure Name Priority Date/Time Associated Diagnosis Comments LIPID PANEL (OUTSIDE LAB) Routine 05/10/2019 CMP (ABSTRACTED LAB) Routine 05/10/2019 HEMOGLOBIN, GLYCOSYLATED Routine 05/10/2019 CK (CPK) Routine 05/10/2019 documented in this encounter Results * HEMOGLOBIN, GLYCOSYLATED (05/10/2019) HGB A1C 5.4 05/10/2019 us Doc [facility] Abstract LABORATORY Final Result * CK (CPK) (05/10/2019) CPK 86 05/10/2019 us Doc [facility] Abstract LABORATORY Final Result * LIPID PANEL (OUTSIDE LAB) (05/10/2019) CHOLESTEROL 126 TRIGLYCERIDES 388 HDL 25 LDL (CALCULATED) 23 05/10/2019 us Doc [facility] Abstract LAB-OUTSIDE/ABSTRACTED Final Result * CMP (ABSTRACTED LAB) (05/10/2019) SODIUM S/P/B 142 POTASSIUM S/P/B 4.2 CHLORIDE S/P/B 104 CO2 30 BUN 15 CREATININE S/P/B 1.03 0.7 - 1.3 EGFR AFR. AMER. >60 EGFR NON-AFR. AMER. >60 <=90 CALCIUM S/P/B 8.6 GLUCOSE 100 mg/dL TOTAL PROTEIN S/P/B 6.9 ALBUMIN S/P/B 4.1 3.5 - 5.0 AST 24 ALT 38 ALKALINE PHOSPHATASE S/P/B 81 BILIRUBIN TOTAL S/P/B 0.5 05/10/2019 us Doc [facility] Abstract LAB-OUTSIDE/ABSTRACTED Final Result documented in this encounter Visit Diagnoses Not on filedocumented in this encounter Additional Health Concerns Infection Onset Date Last Indicated Resolved Time COVID-19 Rule Out 06/03/2020 06/03/2020 06/04/2020 5:52 PM DONATIONS ATTENDANT documented as of this encounter Care Teams Chicken Raiser Relationship Specialty Start Date End Date Cristina Oliver MD [address] [place] [address] PCP - General INTERNAL MEDICINE 02/13/16 Wilson Bullock MD [address] [place] [address] [place] Sap Basis Consultant CARDIOVASCULAR DISEASE 02/13/16 Quincy Romero MD [address] [place] [address] Consulting Physician INTERVENTIONAL CARDIOLOGY 08/21/22 Kenny Handley APRN 9 [facility] [address] [phone] Nurse Practitioner NURSE PRACTITIONER 03/20/23 documented as of this encounter
--- OUTSIDE RECORDS SUMMARY | 2024-07-21 06:58 | XMS_ITS | Encounter Summary ---
Author Organization [facility] Address [address] [place] [address] Care Team Providers Care National Stormwater Leader Name Role Phone Cristina Oliver MD Primary Care Provider [phone] Wilson Bullock MD Unavailable Unavailabl Quincy Chaudhry MD Unavailable [phone] Kenny Handley APRN Unavailable [phone] Encounter Details Date Type Department Care Team (Late st Contact Info) Description 07/24/2023 Abstract [facility] [address] [place] [address] Abstract, Doc [facility] Social History Tobacco Use Types Packs/Day Years Used Date Smoking Tobacco: Former Cigarettes Q uit: 12/29/2006 Smokeless Tobacco: Never Alcohol Use Standard Drinks/Week Comments Yes 0 (1 standard drink = 0.6 oz pur e alcohol) Occasionally Sex and Gender Information Value Date Recorded Sex Assigned at Male 06/01/2024 7:55 AM POSTDOCTORAL RESEARCH ASSOCIATE Legal Sex Male 10:30 PM CDT Gender Identity Not on file Sexual Orientation Not on file 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 Date 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, 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 Not on file Not on file documented as of this encounter Plan of Treatment Not on file documented as of this encounter Procedures Procedure Name Priority Date/Time Associated Diagnosis Comments CMP (ABSTRACTED LAB) Routine 07/16/2023 LIPID PANEL Routine 07/16/2023 documented in this encounter Results * LIPID PANEL (07/16/2023) CHOLESTEROL 133 HDL 36 TRIGLYCERIDES 133 LDL (CALCULATED) 70 07/16/2023 us Default History Genericprovider LABORATORY Final Result * CMP (ABSTRACTED LAB) (07/16/2023) SODIUM S/P/B 141 POTASSIUM S/P/B 4.2 CHLORIDE S/P/B 104 CO2 26 BUN 20 CREATININE S/P/B 1.12 0.7 - 1.3 EGFR AFR. AMER. >60 <=90 EGFR NON-AFR. AMER. >60 <=90 CALCIUM S/P/B 8.6 GLUCOSE 117 mg/dL TOTAL PROTEIN S/P/B 6.7 ALBUMIN S/P/B 4.0 3.5 - 5.0 AST 17 ALT 39 ALKALINE PHOSPHATASE S/P/B 86 BILIRUBIN TOTAL S/P/B 0.6 07/16/2023 us Default History Genericprovider LAB-OUTSIDE/ABST RACTED Final Result documented in this encounter Visit Diagnoses Not on filedocumented in this encounter Care Teams National Stormwater Leader Relationship Specialty Start Date End Date Cristina Oliver MD [address] [place] [address] PCP - General INTERNAL MEDICINE 02/13/16 Wilson Bullock MD [address] [place] [address] [place] [employer] Operations Advisor CARDIOVASCULAR DISEASE 02/13/16 Quincy Romero MD [address] [place], [place] [address] Consulting Physician INTERVENTIONAL CARDIOLOGY 08/21/22 Kenny Handley APRN [address] [address] Nurse Practitioner NURSE PRACTITIONER 03/20/23 documented as of this encounter
--- OUTSIDE RECORDS SUMMARY | 2024-07-21 06:58 | XMS_ITS | Encounter Summary ---
Author Organization [facility] Address [facility] [place] [address] Care Team Providers Care Meal Cook Name Role Phone Cristina Oliver MD Primary Care Provider [phone] Wilson Bullock MD Unavailable UnavailQuincy Hurst MD Unavailable [phone] Kenny Handley APRN Unavailable [phone] Encounter Details Date Type Department Care Team (Late st Contact Info) Description 08/19/2016 Abstract [facility] [address] [place] [address] Wilson Bullock MD Social History Tobacco Use Types Packs/Day Years Used Date Smoking Tobacco: Former Cigarettes Q uit: 12/29/2006 Smokeless Tobacco: Never Alcohol Use Standard Drinks/Week Comments Yes 0 (1 standard drink = 0.6 oz pur e alcohol) occasionally Sex and Gender Information Value Date Recorded Sex Assigned at Male 06/01/2024 7:55 AM ELEVATOR SERVICE MECHANIC Legal Sex Male 10:30 PM CDT Gender Identity Not on file Sexual Orientation Not on file 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 Date 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 AMER. 67 CALCIUM S/P/B 9.2 GLUCOSE 135 TOTAL PROTEIN S/P/B 6.4 ALBUMIN S/P/B 3.9 3.5 - 5.0 AST 22 ALT 47 ALKALINE PHOSPHATASE S/P/B 64 BILIRUBIN TOTAL S/P/B 0.7 08/16/2016 Cristina Oliver MD LAB-OUTSIDE/ABSTRACTED Final Result * LIPID PANEL (OUTSIDE LAB) (08/16/2016) CHOLESTEROL 138 TRIGLYCERIDES 160 HDL 37 LDL (CALCULATED) 69 CHOL/HDL RATIO 3.7 08/16/2016 Cristina Oliver MD LAB-OUTSIDE/ABSTRACTED Final Result documented in this encounter Visit Diagnoses Not on filedocumented in this encounter Additional Health Concerns Infection Onset Date Last Indicated Resolved Time COVID-19 Rule Out 06/03/2020 06/03/2020 06/04/2020 5:52 PM ELEVATOR SERVICE MECHANIC documented as of this encounter Care Teams Meal Cook Relationship Specialty Start Date End Date Cristina Oliver MD [address] [place] [address] PCP - General INTERNAL MEDICINE 02/13/16 Wilson Bullock MD [address] [place] [address] [place] [employer] [facility] Counselor CARDIOVASCULAR DISEASE 02/13/16 Quincy Romero MD [address] [place] [place] [address] Consulting Physician INTERVENTIONAL CARDIOLOGY 08/21/22 Kenny Handley APRN 9 [facility] [address] [address] Nurse Practitioner NURSE PRACTITIONER 03/20/23 documented as of this encounter
--- OUTSIDE RECORDS SUMMARY | 2024-07-21 06:58 | XMS_ITS | Encounter Summary ---
Author Organization [facility] Address [facility] [place] [address] Care Team Providers Care Rn Midwife Name Role Phone Cristina Oliver MD Primary Care Provider [phone] Wilson Bullock MD Unavailable Unavailabl e Quincy Romero MD Unavailable [phone] Kenny Handley APRN Unavailable [phone] Encounter Details Date Type Department Care Team (Late st Contact Info) Description 06/07/2024 Hospital Follow-up Call [facility] [address] [place] [address] Svetlana Damon, RN Social History Tobacco Use Types Packs/Day Years Used Date Smoking Tobacco: Former Cigarettes Q uit: 12/29/2006 Smokeless Tobacco: Never Alcohol Use Standard Drinks/Week Comments Yes 0 (1 standard drink = 0.6 oz pur e alcohol) Occasionally [facility] Utilities Answer Date Recorded In the past 12 months has e [employer], gas, oil, or water [employer]ra[employer] threatened to shut off services in your [...] any time in the past 12 m [facility], were you homeless or living in a retirement (including now)? 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 Answer Date of Assessment Author Status No 06/02/2024 12:47 AM Chika Roberson RN Active * Do you have serious difficulty walking or climbing stairs? Answer Date of Assessment Author Status No 06/02/2024 12:47 AM Chika Roberson RN Active * Do you have difficulty dressing or bathing? Answer Date of Assessment Author Status No 06/02/2024 12:47 AM Chika Roberson RN Active * Because of a physical, mental, or emotional condition, do you have difficulty doing errands alone such as visiting a doctor's office or shopping? Answer Date of Assessment Author Status No 06/02/2024 12:47 AM Chika Roberson RN Active documented as of this encounter Mental Status * Because of a physical, mental, or emotional condition, do you have serious difficulty concentrating, remembering, or making decisions? Answer Entry Date Author Status No 06/02/2024 12:47 AM Chika Roberson RN Active documented in this encounter Plan of Treatment Not on file documented as of this encounter Visit Diagnoses Not on filedocumented in this encounter Care Teams Rn Midwife Relationship Specialty Start Date End Date Cristina Oliver MD [address] [place] [address] PCP - General INTERNAL MEDICINE 02/13/16 Wilson Bullock MD [address] [place] [address] [place] Airline Mechanic CARDIOVASCULAR DISEASE 02/13/16 Quincy Romero MD [address] [place] [address] Consulting Physician INTERVENTIONAL CARDIOLOGY 08/21/22 Kenny Handley APRN [address] [place] [address] Nurse Practitioner NURSE PRACTITIONER 03/20/23 documented as of this encounter
--- OUTSIDE RECORDS SUMMARY | 2024-07-21 06:58 | XMS_ITS | Encounter Summary ---
Author Organization [facility] Address [address] [place] [address] Care Team Providers Care Preschool Head Teacher Name Role Phone Cristina Oliver MD Primary Care Provider [phone] Wilson Bullock MD Unavailable Unavailabl Quincy Chaudhry MD Unavailable [phone] Kenny Handley APRN Unavailable [phone] Encounter Details Date Type Department Care Team (Late st Contact Info) Description 09/19/2020 Abstract [facility] [address] [place] [address] Wilson Bullock MD Social History Tobacco Use Types Packs/Day Years Used Date Smoking Tobacco: Former Cigarettes Q uit: 12/29/2006 Smokeless Tobacco: Never Tobacco Cessation:Counseling Given: Not Answered Alcohol Use Standard Drinks/Week Comments Yes 0 (1 standard drink = 0.6 oz pur e alcohol) Occasionally Sex and Gender Information Value Date Recorded Sex Assigned at Male 06/01/2024 7:55 AM CLINICAL NURSING ASSISTANT Legal Sex Male 10:30 PM CDT Gender Identity Not on file Sexual Orientation Not on file 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 Date 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, 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 Not on file Not on file documented as of this encounter Plan of Treatment Not on file documented as of this encounter Visit Diagnoses Not on filedocumented in this encounter Care Teams Preschool Head Teacher Relationship Specialty Start Date End Date Cristina Oliver MD [address] [place] [address] PCP - General INTERNAL MEDICINE 02/13/16 Wilson Bullock MD [address] [place] [address] [place] Manager Life CARDIOVASCULAR DISEASE 02/13/16 Quincy Romero MD [address] [place] [address] Consulting Physician INTERVENTIONAL CARDIOLOGY 08/21/22 Kenny Handley APRN 619 [facility] [address] [address] Nurse Practitioner NURSE PRACTITIONER 03/20/23 documented as of this encounter
--- OUTSIDE RECORDS SUMMARY | 2024-07-21 06:58 | XMS_ITS | Encounter Summary ---
Author Organization [facility] Address [address] [place] [address] Care Team Providers Care Supervisor Sawing And Assembly Name Role Phone Cristina Oliver MD Primary Care Provider [phone] Wilson Bullock MD Unavailable Unavailabl Quincy Chaudhry MD Unavailable [phone] Kenny Handley APRN Unavailable [phone] Encounter Details Date Type Department Care Team (Late st Contact Info) Description 01/30/2021 Abstract [facility] [address] [place] [address] Abstract, Doc [facility] Social History Tobacco Use Types Packs/Day Years Used Date Smoking Tobacco: Former Cigarettes Q uit: 12/29/2006 Smokeless Tobacco: Never Alcohol Use Standard Drinks/Week Comments Yes 0 (1 standard drink = 0.6 oz pur e alcohol) occasionally Sex and Gender Information Value Date Recorded Sex Assigned at Male 06/01/2024 7:55 AM INSTITUTIONAL COMMODITY ANALYST Legal Sex Male 10:30 PM CDT Gender Identity Not on file Sexual Orientation Not on file 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 Not on file Not o n file documented as of this encounter Plan of Treatment Not on file documented as of this encounter Procedures Procedure Name Priority Date/Time Associated Diagnosis Comments TSH (OUTSIDE LAB) Routine 01/30/2021 COMPREHENSIVE METABOLIC PANEL Routine 01/30/2021 LIPID PANEL Routine 01/30/2021 CBC, MANUAL DIFF Routine 01/30/2021 THYROXINE, FREE (FT4) Routine 01/30/2021 documented in this encounter Results * CBC, MANUAL DIFF (01/30/2021) [facility] WBC 4.6 RBC 4.47 HGB 14.3 HCT 41.0 MCV 91.7 MCH 32.0 MCHC 34.9 RDW 12.2 PLT 173 MPV 9.6 NEUTROPHILS % 58.1 LYMPHOCYTES % 23.0 MONOCYTES % 12.1 EOSINOPHILS % 5.9 BASOPHILS % 0.9 ABS. NEUTROPHILS 2,673 ABS. LYMPHOCYTES 1,058 ABS. MONOCYTES 557 ABS. EOSINOPHILS 271 ABS. BASOPHILS 41 01/30/2021 us Doc [facility] Abstract LABORATORY Final Result * THYROXINE, FREE (FT4) (01/30/2021) [facility] FREE T4 1.1 01/30/2021 us Doc [facility] Abstract LABORATORY Final Result * TSH (OUTSIDE LAB) (01/30/2021) [facility] TSH 2.14 01/30/2021 us Doc [facility] Abstract LAB-OUTSIDE/ABSTRACTED Final Result * COMPREHENSIVE METABOLIC PANEL (01/30/2021) [facility] SODIUM S/P/B 139 POTASSIUM S/P/B 3.9 CO2 27 CHLORIDE S/P/B 104 GLUCOSE 80 mg/dL CALCIUM S/P/B 9.4 BUN 15 CREATININE S/P/B 1.11 0.7 - 1.3 EGFR AFR. AMER. 75 <=90 EGFR NON-AFR. AMER. 65 <=90 ALKALINE PHOSPHATASE S/P/B 87 ALT 30 AST 20 BILIRUBIN TOTAL S/P/B 0.6 ALBUMIN S/P/B 4.6 3.5 - 5.0 TOTAL PROTEIN S/P/B 6.8 01/30/2021 us Doc [facility] Abstract LABORATORY Final Result * LIPID PANEL (01/30/2021) CHOLESTEROL 130 HDL 34 TRIGLYCERIDES 140 NON HDL CHOLESTEROL 96 CHOL/HDL RATIO 3.8 LDL (CALCULATED) 74 01/30/2021 us Doc [facility] Abstract LABORATORY Final Result documented in this encounter Visit Diagnoses Not on filedocumented in this encounter Care Teams Supervisor Sawing And Assembly Relationship Specialty Start Date End Date Cristina Oliver MD [address] [place], [place] [phone] PCP - General INTERNAL MEDICINE 02/13/16 Wilson Bullock MD [address] [place] [phone] [place] [employer] CARDIOVASCULAR DISEASE 02/13/16 Quincy Romero MD [address] [place] [phone] Consulting Physician INTERVENTIONAL CARDIOLOGY 08/21/22 Kenny Handley APRN [address] [place] [address] [phone] Nurse Practitioner NURSE PRACTITIONER 03/20/23 documented as of this encounter
--- OUTSIDE RECORDS SUMMARY | 2024-07-21 06:58 | XMS_ITS | Encounter Summary ---
Author Organization [facility] Address [address] [place] [address] Care Team Providers Care Director Of Healthcare Systems Name Role Phone Cristina Oliver MD Primary Care Provider [phone] Wilson Bullock MD Unavailable UnavailQuincy Hurst MD Unavailable [phone] Kenny Handley APRN Unavailable [phone] Encounter Details Date Type Department Care Team (Late st Contact Info) Description 01/18/2020 Abstract [facility] [address] [place] [address] Abstract, Doc [facility] Social History Tobacco Use Types Packs/Day Years Used Date Smoking Tobacco: Former Cigarettes Q uit: 12/29/2006 Smokeless Tobacco: Never Alcohol Use Standard Drinks/Week Comments Yes 0 (1 standard drink = 0.6 oz pur e alcohol) occasionally Sex and Gender Information Value Date Recorded Sex Assigned at Male 06/01/2024 7:55 AM CLERICAL GRADER Legal Sex Male 10:30 PM CDT Gender Identity Not on file Sexual Orientation Not on file 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 No / Unsure 01/19/2020 8:31 AM CDT documented as of this encounter Plan of Treatment Not on file documented as of this encounter Procedures Procedure Name Priority Date/Time Associated Diagnosis Comments CORONAVIRUS (COVID-19) ANTIGEN Routine 10/26/2019 documented in this encounter Results * CORONAVIRUS (COVID-19) ANTIGEN (10/26/2019) CORONAVIRUS ANTIGEN IA NEGATIVE NEGATIVE Internal Control: ABSTRACTED VALID NASAL STRUCTURE / Unknown 10/26/2019 us Cristina Oliver MD MICROBIOLOGY - GENERAL ORDERA BLES Final Result documented in this encounter Visit Diagnoses Not on filedocumented in this encounter Additional Health Concerns Infection Onset Date Last Indicated Resolved Time COVID-19 Rule Out 06/03/2020 06/03/2020 06/04/2020 5:52 PM CLERICAL GRADER documented as of this encounter Care Teams Director Of Healthcare Systems Relationship Specialty Start Date End Date Cristina Oliver MD [address] [place] [address] PCP - General INTERNAL MEDICINE 02/13/16 Wilson Bullock MD [address] [place] [phone] [place] Sales Support Specialist CARDIOVASCULAR DISEASE 02/13/16 Quincy Romero MD [address] [place] [address] Consulting Physician INTERVENTIONAL CARDIOLOGY 08/21/22 Kenny Handley APRN [address] [place] [address] [phone] Nurse Practitioner NURSE PRACTITIONER 03/20/23 documented as of this encounter
[2024-07-21 07:19] LABS: Basophils Absolute Auto 0.02 K/mm3 (0.00-0.10); Basophils Percent Auto 0.5 % (0.0-1.0); Eosinophils Absolute Auto 0.18 K/mm3 (0.02-0.50); Eosinophils Percent Auto 4.5 % (1.0-6.0); Hematocrit 37.4 % (37.0-46.0); Immature Granulocyte Absolute 0.01 K/mm3 (0.00-0.00); Immature Granulocyte Percent A 0.2 % (0.0-0.0); Lymphocytes Absolute Auto 0.74 K/mm3 (1.10-4.50); Lymphocytes Percent Auto 18.5 % (18.0-42.0); Mean Corpuscular HGB Conc 34.8 g/dL (32-36); Mean Corpuscular Hemoglobin 31.8 pg (27.0-31.0); Mean Corpuscular Volume 91.4 fL (78.0-102.0); Monocytes Absolute Auto 0.48 K/mm3 (0.10-0.90); Neutrophils Absolute Auto 2.58 K/mm3 (1.70-7.20); Neutrophils Percent Auto 64.3 % (50.0-70.0); Platelet Count Result 158 K/mm3 (150-420); Red Blood Count 4.09 M/mm3 (4.70-6.10); Red Cell Distribution Width 12.7 % (11.6-14.4)
[2024-07-21 07:26] LABS: Add Urine Microscopic? NO; Appearance Urine Clear (Clear); Bilirubin Urine Negative (Negative); Blood Urine Negative (Negative); Color Urine Yellow (Yellow); Glucose Urine UA Negative (Negative); Ketones Urine Trace (Negative); Leukocyte Esterase Ur Negative (Negative); Nitrate Urine Negative (Negative); Protein Urine Negative (Negative); Specific Grav Ur >= 1.030 (1.010-1.020); Urobilinogen Urine 0.2 mg/dL (0.2-1.0); pH Urine 5.5 (5.0-8.0)
[2024-07-21 07:37] LABS: Creatinine Urine 224.89 mg/dL (40-278); MALB Creatinine Ratio 5.7 mg/g (0-30); Microalbumin Urine Random < 13.0 mg/L
[2024-07-21 07:39] LABS: Hemoglobin A1C 4.8 % (<5.7)
[2024-07-21 08:13] LABS: Free T3 3.86 pg/mL (2.18-3.98)
[2024-07-21 09:13] LABS: Alanine Aminotransferase 43 U/L (16-63); Albumin Level 3.9 g/dL (3.4-5.0); Alkaline Phosphatase 96 U/L (46-116); Anion Gap 9 mmol/L (4-12); Aspartate Amino Transferase 31 U/L (15-37); Bilirubin,Total 0.7 mg/dL (0.00-1.00); Blood Urea Nitrogen 17 mg/dL (7-18); Calcium 9.7 mg/dL (8.5-10.1); Carbon Dioxide 27 mmol/L (21-32); Chloride 103 mmol/L (98-108); Cholesterol 137 mg/dL (0-200); Creatine Kinase 57 U/L (39-308); Estimated Glomerular Filt Rate > 60; Free T4 Free Thyroxine 1.03 ng/dL (0.76-1.46); Glucose 129 mg/dL (70-99); HDL Direct 36 mg/dL (40-60); LDL Cholesterol Calculated 53 mg/dL (<130); Osmolality Calculated 291 mOsm/kg (285-295); Potassium 4.3 mmol/L (3.5-5.1); Sodium 139 mmol/L (136-145); Thyroid Stimulating Hormone 2.75 uIU/mL (0.36-3.74); Total Protein 6.4 g/dL (6.4-8.2); Triglycerides 240 mg/dL (0-150)
== END 2024-07-21 06:54 | disposition home or self-care (01) ==
PROVIDERS: PCP Internal Medicine; Visit Provider Internal Medicine
DX: E11.59 Type 2 diabetes mellitus with other circulatory complications (principal); R53.82 Chronic fatigue, unspecified; I10 Essential (primary) hypertension; E78.2 Mixed hyperlipidemia; J44.9 Chronic obstructive pulmonary disease, unspecified
CPT/HCPCS: 36415; 80053; 80061; 81003; 82043; 82550; 83036; 84439; 84443; 84481; 85025

== ENCOUNTER 2024-09-28 06:59 | Outpatient (CLI) | payer MEDICARE, SELFPAY ==
--- NOTE | ~2024-09-28 | XR_ITS ---
Clinical Indication: Chest pain PA and lateral views of the chest: Comparison: 01/22/2024 Findings: The lungs are clear, without evidence of focal consolidation or pleural effusion. Cardiome diastinal silhouette is within normal limits. Bones and soft tissues are unremarkable. Impression: Normal chest. Reviewed, dictated and finalized at location . Impression: Normal chest.
--- OUTSIDE RECORDS SUMMARY | 2024-09-28 07:04 | XMS_ITS | Encounter Summary ---
Author Organization [facility] Address [facility] [place] [address] Care Team Providers Care Power Project Manager Name Role Phone Cristina Oliver MD Primary Care Provider [phone] Wilson Bullock MD Unavailable Unavailabl e Quincy Romero MD Unavailable [phone] Kenny Handley APRN Unavailable [phone] Belgica Enriquez MD Unavailable Encounter Details Date Type Department Care Team (Late st Contact Info) Description 06/07/2024 Hospital Follow-up Call [facility] Unit [address] [place] [address] Svetlana Damon, RN Social History Tobacco Use Types Packs/Day Years Used Date Smoking Tobacco: Former Cigarettes Q uit: 12/29/2006 Smokeless Tobacco: Never Alcohol Use Standard Drinks/Week Comments Yes 0 (1 standard drink = 0.6 oz pur e alcohol) Occasionally [facility] Utilities Answer Date Recorded In the past 12 months has e electric, gas, oil, or water company threatened to shut off services in your [...] any time in the past 12 m [facility], were you homeless or living in a chcf (including now)? 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 [...] on filedocumented in this encounter Care Teams Power Project Manager Relationship Specialty Start Date End Date Cristina Oliver MD [address] [place] [phone] PCP - General INTERNAL MEDICINE 02/13/16 Wilson Bullock MD [address] [place] [phone] [place] Transverse Abdominal Muscle Surgeon CARDIOVASCULAR DISEASE 02/13/16 08/26/24 Quincy Romero MD [address] [place] [phone] Consulting Physician INTERVENTIONAL CARDIOLOGY 08/21/22 08/26/24 Kenny Handley APRN [address] [place] [address] Nurse Practitioner NURSE PRACTITIONER 03/20/23 08/26/24 Belgica Enriquez MD [address] [place] [address] Consulting Physician CARDIOVASCULAR DISEASE 08/27/24 documented as of this encounter
--- OUTSIDE RECORDS SUMMARY | 2024-09-28 07:04 | XMS_ITS | Encounter Summary ---
Author Organization [facility] Address [address] [place] [address] Care Team Providers Care Operator Electronic Warfare Name Role Phone Cristina Oliver MD Primary Care Provider [phone] Wilson Bullock MD Unavailable Unavailabl e Quincy Romero MD Unavailable [phone] Kenny Handley APRN Unavailable [phone] Belgica Enriquez MD Unavailable Encounter Details Date Type Department Care Team (Late st Contact Info) Description 09/19/2020 Abstract [facility] [address] [place] [phone] Wilson Bullock MD Social History Tobacco Use Types Packs/Day Years Used Date Smoking Tobacco: Former Cigarettes Q uit: 12/29/2006 Smokeless Tobacco: Never Tobacco Cessation:Counseling Given: Not Answered Alcohol Use Standard Drinks/Week Comments Yes 0 (1 standard drink = 0.6 oz pur e alcohol) Occasionally Sex and Gender Information Value Date Recorded Sex Assigned at Male 06/01/2024 7:55 AM TIRE REPAIRER Legal Sex Male 10:30 PM CDT Gender Identity Not on file Sexual Orientation Not on file 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 Date 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, 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 Not on file Not on file documented as of this encounter Plan of Treatment Not on file documented as of this encounter Visit Diagnoses Not on filedocumented in this encounter Care Teams Operator Electronic Warfare Relationship Specialty Start Date End Date Cristina Oliver MD [address] [place] [phone] PCP - General INTERNAL MEDICINE 02/13/16 Wilson Bullock MD [address] [place] [phone] [place] Manager Corporate Communications CARDIOVASCULAR DISEASE 02/13/16 08/26/24 Quincy Romero MD [address] [place] [phone] Consulting Physician INTERVENTIONAL CARDIOLOGY 08/21/22 08/26/24 Kenny Handley APRN [address] [place] [phone] Nurse Practitioner NURSE PRACTITIONER 03/20/23 08/26/24 Belgica Enriquez MD [address] [place] [address] Consulting Physician CARDIOVASCULAR DISEASE 08/27/24 documented as of this encounter
--- OUTSIDE RECORDS SUMMARY | 2024-09-28 07:04 | XMS_ITS | Encounter Summary ---
Author Organization [facility] Address [address] [place] [address] Care Team Providers Care Scrap Yard Worker Name Role Phone Cristina Oliver MD Primary Care Provider [phone] Wilson Bullock MD Unavailable Unavailabl Quincy Chaudhry MD Unavailable [phone] Kenny Handley APRN Unavailable [phone] Belgica Enriquez MD Unavailable Encounter Details Date Type Department Care Team (Late st Contact Info) Description 06/15/2019 Abstract [facility] [address] [place] [phone] Abstract, Doc [facility] Social History Tobacco Use Types Packs/Day Years Used Date Smoking Tobacco: Former Cigarettes Q uit: 12/29/2006 Smokeless Tobacco: Never Alcohol Use Standard Drinks/Week Comments Yes 0 (1 standard drink = 0.6 oz pur e alcohol) occasionally Sex and Gender Information Value Date Recorded Sex Assigned at Male 06/01/2024 7:55 AM CHRONOMETER ADJUSTER Legal Sex Male 10:30 PM CDT Gender Identity Not on file Sexual Orientation Not on file 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 Date 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 on file Not on [...] Rule Out 06/03/2020 06/03/2020 06/04/2020 5:52 PM CHRONOMETER ADJUSTER documented as of this encounter Care Teams Scrap Yard Worker Relationship Specialty Start Date End Date Cristina Oliver MD [address] [place] [phone] PCP - General INTERNAL MEDICINE 02/13/16 Wilson Bullock MD [address] [place] [phone] [place] Sole Sewer Hand CARDIOVASCULAR DISEASE 02/13/16 08/26/24 Quincy Romero MD [address] [place] [phone] Consulting Physician INTERVENTIONAL CARDIOLOGY 08/21/22 08/26/24 Kenny Handley APRN [address] [place] [phone] Nurse Practitioner NURSE PRACTITIONER 03/20/23 08/26/24 Belgica Enriquez MD [address] [place] [address] Consulting Physician CARDIOVASCULAR DISEASE 08/27/24 documented as of this encounter
--- OUTSIDE RECORDS SUMMARY | 2024-09-28 07:04 | XMS_ITS | Encounter Summary ---
Author Organization [facility] Address [address] [place] [address] Care Team Providers Care Diesel Truck Driver Name Role Phone Cristina Oliver MD Primary Care Provider [phone] Wilson Bullock MD Unavailable Unavailabl e Quincy Romero MD Unavailable [phone] Kenny Handley APRN Unavailable [phone] Belgica Enriquez MD Unavailable Encounter Details Date Type Department Care Team (Late st Contact Info) Description 01/30/2021 Abstract [facility] [address] [place] [address] Abstract, Doc [facility] Social History Tobacco Use Types Packs/Day Years Used Date Smoking Tobacco: Former Cigarettes Q uit: 12/29/2006 Smokeless Tobacco: Never Alcohol Use Standard Drinks/Week Comments Yes 0 (1 standard drink = 0.6 oz pur e alcohol) occasionally Sex and Gender Information Value Date Recorded Sex Assigned at Male 06/01/2024 7:55 AM MANAGER COMPANY Legal Sex Male 10:30 PM CDT Gender Identity Not on file Sexual Orientation Not on file 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 NEUTROPHILS 2,673 ABS. LYMPHOCYTES 1,058 ABS. MONOCYTES 557 ABS. EOSINOPHILS 271 ABS. BASOPHILS 41 01/30/2021 us Doc [facility] Abstract LABORATORY Final Result * THYROXINE, FREE (FT4) (01/30/2021) FREE T4 1.1 01/30/2021 us Doc [facility] Abstract LABORATORY Final Result * TSH (OUTSIDE LAB) (01/30/2021) TSH 2.14 01/30/2021 us Doc [facility] Abstract LAB-OUTSIDE/ABSTRACTED Final Result * COMPREHENSIVE METABOLIC PANEL (01/30/2021) SODIUM S/P/B 139 POTASSIUM S/P/B 3.9 CO2 [...] on filedocumented in this encounter Care Teams Diesel Truck Driver Relationship Specialty Start Date End Date Cristina Oliver MD [address] [place] [phone] PCP - General INTERNAL MEDICINE 02/13/16 Wilson Bullock MD [address] [place] [phone] [place] [address] Reed Dipper CARDIOVASCULAR DISEASE 02/13/16 08/26/24 Quincy Romero MD [address] [place] [phone] Consulting Physician INTERVENTIONAL CARDIOLOGY 08/21/22 08/26/24 Kenny Handley APRN [address] [place] [phone] Nurse Practitioner NURSE PRACTITIONER 03/20/23 08/26/24 Belgica Enriquez MD [address] [place], [place] [address] Consulting Physician CARDIOVASCULAR DISEASE 08/27/24 documented as of this encounter
--- OUTSIDE RECORDS SUMMARY | 2024-09-28 07:04 | XMS_ITS | Clinical Summary ---
Author Organization [facility] Address [address] [place] [address] Care Team Providers Care Grain I Farmworker Name Role Phone Cristina Oliver MD Primary Care Provider [phone] Belgica Enriquez MD Unavailable Allergies Active Allergy Reactions Criticality Noted Date Comments Atorvastatin Other (see comment) High 11/30/2017 States he develops very high Liver function tests. Codeine Hives 06/02/2020 Lisinopril Swelling 02/29/2016 Losartan Swelling 02/29/2016 Propoxyphene Itching 02/29/2016 Spironolactone GI Upset 02/29/2016 Medications Multiple Vitamins-Minerals (PX COMPLETE SENIOR MULTIVITS) Tab Take 1 [...] Chest Pain. 25 tablet 5 3 Active omeprazole (PRILOSEC) 40 MG capsule Take [...] mouth 2 (two) times daily. 5 Active carvedilol (COREG) 12.5 MG tablet Take 1 tablet (12.5 mg total) by mouth 2 (two) times daily. 180 tablet 3 5 Active ticagrelor (BRILINTA) 90 mg tablet Take 1 tablet (90 mg total) by mouth 2 (two) times daily. 180 tablet 3 5 Active NIFEdipine ER (ADALAT CC) 30 MG 24 hr tablet Take 1 tablet (30 mg total) by mouth daily. 90 tablet 3 5 Active lovastatin (MEVACOR) 40 MG tabletIndications:M ixed hyperlipidemia Take 1 tablet (40 mg total) by mouth nightly at bedtime. 90 tablet 3 5 Active Active Problems Problem Noted Date Diagnosed Date Chronic diastolic (congestiv e) heart failure ([facility]) 03/19/2023 Long-term use of high-risk medication 11/08/2019 Bilateral carotid artery stenosis 01/14/2019 Acute non-ST elevation myoca rdial infarction (NSTEMI) ([facility]) 12/01/2017 Overview (12/04/2017): lateral wall Unstable angina ([facility]) 11/30/2017 Acute non-ST elevation myoca rdial infarction (NSTEMI) ([facility]) 02/06/2017 Hx of non-ST elevation myocardial infarction ([facility]) 02/02/2017 Dyspnea on exertion 09/19/2016 Positive cardiac stress test 09/19/2016 Renal artery stenosis 02/17/2009 Overview (02/29/2016): bilateral renal artery bare metal stenting Status post coronary artery stent placement 07/18 Overview (02/29/2016): 90% distal LAD Status post placement of bare metal coronary art odalys stent 06/19/1996 Overview (02/29/2016): proximal and mid left circumflex at [facility] Benign essential hypertension CAD (coronary artery disease) Chronic kidney disease GERD (gastroesophageal reflux disease) Hyperlipidemia LVH (left ventricular hypertrophy) Carotid stenosis, asymptomatic, bilateral Encounters Date Type Department Care Team Description 08/27[facility]20[facility] [address] [place] [address] Belgica Enriquez MD Refill Request 07/22/2024 [facility] [address] [place] [address] Quincy Romero MD Medication from Last 3 Months Immunizations Immunization Administration Dates Next Due Influenza (Generic) 03/11/2014 [...] = 0.6 oz pur e alcohol) Occasionally [facility] Utilities Answer Date Recorded In the past 12 months has [employer], gas, oil, or water [employer] threatened to shut off services in your [...] any time in the past 12 m [facility], were you homeless or living in a jail (including now)? 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 Not on file Not on file Last Filed Vital Signs Vital Sign Reading Time Taken Comments Blood Pressure 120/58 06/10/2024 8:52 AM PIPE INSTALLER Pulse 64 06/10/2024 8:52 AM PIPE INSTALLER Temperature 36.4 C (97.5 F) 06/03/2024 8:24 AM PIPE INSTALLER Respiratory Rate 16 06/10/2024 8:52 AM PIPE INSTALLER Oxygen Saturation 99% 06/10/2024 8:52 AM PIPE INSTALLER Inhaled Oxygen Concentration - - Weight 95.3 kg (210 lb 3.2 oz) 06/10/2024 8:52 A M PIPE INSTALLER Height 182.9 cm (6') 06/10/2024 8:52 AM PIPE INSTALLER Body Mass Index 28.51 06/10/2024 8:52 AM PIPE INSTALLER Plan of Treatment Health Maintenance Due Date Last Done Comments Hepatitis C 1964 Zoster Vaccines (1 of 2) 1996 Annual Medicare Wellness Visit 2011 DTaP, Tdap and Td Vaccines ( 2 - Td or Tdap) 04/27/2020 04/27/2010 RSV Immunization or 60+ Years (1 - 1-dose 75+ series) 2021 COVID-19 Vaccine (2023-2 5 season) 2024 Pneumococcal Vaccine: 50+ Years Completed 02/25/2018, 01/19/2015, 05/04/2012 Meningococcal B Vaccine Aged Out No l onger eligible based on patient's age to complete this topic Meningococcal Vaccine Aged Out No sandy reza eligible based on patient's age to complete this topic RSV Immunizations Under 20 Months Aged Out No longer eligible b ased on patient's age to complete this topic Medical Devices Implanted Type Area Deer Farm Worker Device Identifier Shelf Expiration Date Model / Serial / Lot Iol [employer] [id number] - [id number] Implanted:Qty: 1 on 06/06/2020 by Troy Reddy MD at [facility] Lens Right: Eye [employer] [id number] 02/15/2023 [id number] / [id number] Description:Lens verified pe r surgeon Stent- 7 Implanted:Qty: 1 on 02/03/2017 by David Braun MD Stent Left: Heart [employer] SYNE RGY MR SHERIF / / Description:Synergy MR SHERIF S tent Cv Muhammad Xience 2.5mm X 28mm Sherif Mid Om3-06/02/2024 Implanted:05/19 by Quincy Romero MD (Quantity not on file) Stent Coronary [employer] 02/04/2026 [id number] / [id number] / Cv Muhammad Xience 3.0mm X 28mm Sherif Mid Circ-06/02/2024 Implanted:05/19 by Quincy Romero MD (Quantity not on file) Stent Coronary LCX [employer] [facility] 08/06/2026 [id number] / [id number] / Insurance MEDICARE MEDICARE [facility] Advance Directives * DNR (Latest [...] Healthcare Agent Relationshi p Communication Luis Daniel Buffard III Step Child Health Care Agent Loy Buffard Step Child First Alternate Health Care Agent Fabian Escobar Son Second Alternate Health Care Agent Care Teams Grain I Farmworker Relationship Specialty Start Date End Date Cristina Oliver MD [address] [place] [address] PCP - General INTERNAL MEDICINE 02/13/16 Belgica Enriquez MD [address] [place] [address] Consulting Physician CARDIOVASCULAR DISEASE 08/27/24
--- OUTSIDE RECORDS SUMMARY | 2024-09-28 07:04 | XMS_ITS | Encounter Summary ---
Author Organization [facility] Address [address] [place] [address] Care Team Providers Care Clinical Data Manager Name Role Phone Cristina Oliver MD Primary Care Provider [phone] Wilson Bullock MD Unavailable Unavailabl Quincy Chaudhry MD Unavailable [phone] Kenny Handley APRN Unavailable [phone] Belgica Enriquez MD Unavailable Encounter Details Date Type Department Care Team (Late st Contact Info) Description 08/19/2016 Abstract 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 Not on file Not [...] Rule Out 06/03/2020 06/03/2020 06/04/2020 5:52 PM SEWING MACHINE OPERATOR FLOORPERSON documented as of this encounter Care Teams Clinical Data Manager Relationship Specialty Start Date End Date Cristina Oliver MD [address] [place] [address] PCP - General INTERNAL MEDICINE 02/13/16 Wilson Bullock MD [address] [place] [address] [place] Surveillance Systems Analyst CARDIOVASCULAR DISEASE 02/13/16 08/26/24 Quincy Romero MD [address] [place] [address] Consulting Physician INTERVENTIONAL CARDIOLOGY 08/21/22 08/26/24 Kenny Handley APRN [address] [place] [address] Nurse Practitioner NURSE PRACTITIONER 03/20/23 08/26/24 Belgica Enriquez MD [address] [place] [address] Consulting Physician CARDIOVASCULAR DISEASE 08/27/24 documented as of this encounter
--- OUTSIDE RECORDS SUMMARY | 2024-09-28 07:04 | XMS_ITS | Encounter Summary ---
Author Organization [facility] Address [address] [place] [address] Care Team Providers Care Vocational Rehabilitation Teacher Name Role Phone Cristina Oliver MD Primary Care Provider [phone] Wilson Bullock MD Unavailable Unavailabl e Quincy Romero MD Unavailable [phone] Kenny Handley APRN Unavailable [phone] Belgica Enriquez MD Unavailable Encounter Details Date Type Department Care Team (Late st Contact Info) Description 07/24/2023 Abstract [facility] [address] [place] [phone] Abstract, Doc [facility] Social History Tobacco Use Types Packs/Day Years Used Date Smoking Tobacco: Former Cigarettes Q uit: 12/29/2006 Smokeless Tobacco: Never Alcohol Use Standard Drinks/Week Comments Yes 0 (1 standard drink = 0.6 oz pur e alcohol) Occasionally Sex and Gender Information Value Date Recorded Sex Assigned at Male 06/01/2024 7:55 AM REGIONAL CONTROLLER Legal Sex Male 10:30 PM CDT Gender Identity Not on file Sexual Orientation Not on file 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 Date 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, 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 [...] on filedocumented in this encounter Care Teams Vocational Rehabilitation Teacher Relationship Specialty Start Date End Date Cristina Oliver MD [address] [place] [address] PCP - General INTERNAL MEDICINE 02/13/16 Wilson Bullock MD [address] [place] [address] [place] Special Education Educational Assistant CARDIOVASCULAR DISEASE 02/13/16 08/26/24 Quincy Romero MD [address] [place] [address] Consulting Physician INTERVENTIONAL CARDIOLOGY 08/21/22 08/26/24 Kenny Handley APRN [address] [place] [address] Nurse Practitioner NURSE PRACTITIONER 03/20/23 08/26/24 Belgica Enriquez MD [address] [place] [address] Consulting Physician CARDIOVASCULAR DISEASE 08/27/24 documented as of this encounter
--- OUTSIDE RECORDS SUMMARY | 2024-09-28 07:04 | XMS_ITS | Encounter Summary ---
Author Organization [facility] Address Formerly [facility] [place] [address] Care Team Providers Care Garment Sewer Hand Name Role Phone Cristina Oliver MD Primary Care Provider [phone] Wilson Bullock MD Unavailable UnavailQuincy Hurst MD Unavailable [phone] Kenny Handley APRN Unavailable [phone] Belgica Enriquez MD Unavailable Encounter Details Date Type Department Care Team (Late st Contact Info) Description 03/17/2015 Abstract [facility] [place] [address] [place] [address] Wilson Bullock MD Social History Tobacco Use Types Packs/Day Years Used Date Smoking Tobacco: Former Cigarettes Q uit: 12/29/2006 Smokeless Tobacco: Never Alcohol Use Standard Drinks/Week Comments Yes 0 (1 standard drink = 0.6 oz pur e alcohol) occasionally Sex and Gender Information Value Date Recorded Sex Assigned at Male 06/01/2024 7:55 AM MARINE FITTER Legal Sex Male 10:30 PM CDT Gender [...] Rule Out 06/03/2020 06/03/2020 06/04/2020 5:52 PM MARINE FITTER documented as of this encounter Care Teams Garment Sewer Hand Relationship Specialty Start Date End Date Cristina Oliver MD [address] [place] [address] PCP - General INTERNAL MEDICINE 02/13/16 Wilson Bullock MD [address] [place] [address] [place] Developmental Electronics Assembler CARDIOVASCULAR DISEASE 02/13/16 08/26/24 Quincy Romero MD [address] [place] [address] Consulting Physician INTERVENTIONAL CARDIOLOGY 08/21/22 08/26/24 Kenny Handley APRN [address] [place] [address] Nurse Practitioner NURSE PRACTITIONER 03/20/23 08/26/24 Belgica Enriquez MD [address] [place] [address] Consulting Physician CARDIOVASCULAR DISEASE 08/27/24 documented as of this encounter
--- OUTSIDE RECORDS SUMMARY | 2024-09-28 07:04 | XMS_ITS | Encounter Summary ---
Author Organization [facility] Address [address] [place] [address] Care Team Providers Care Nylon Winder Name Role Phone Cristina Oliver MD Primary Care Provider [phone] Wilson Bullock MD Unavailable Unavailabl Quincy Chaudhry MD Unavailable [phone] Kenny Handley APRN Unavailable [phone] Belgica Enriquez MD Unavailable Encounter Details Date Type Department Care Team (Late st Contact Info) Description 01/13/2020 Abstract [facility] [address] [place] [address] Abstract, Doc [facility] Social History Tobacco Use Types Packs/Day Years Used Date Smoking Tobacco: Former Cigarettes Q uit: 12/29/2006 Smokeless Tobacco: Never Alcohol Use Standard Drinks/Week Comments Yes 0 (1 standard drink = 0.6 oz pur e alcohol) occasionally Sex and Gender Information Value Date Recorded Sex Assigned at Male 06/01/2024 7:55 AM SCIENCE TECHNICIANS Legal Sex Male 10:30 PM CDT Gender Identity Not on file Sexual Orientation Not on file 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 Date 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 file Not on file Not o n file documented as of this encounter Plan of Treatment Not on file documented as of this encounter Visit Diagnoses Not on filedocumented in this encounter Additional Health Concerns Infection Onset Date Last Indicated Resolved Time COVID-19 Rule Out 06/03/2020 06/03/2020 06/04/2020 5:52 PM SCIENCE TECHNICIANS documented as of this encounter Care Teams Nylon Winder Relationship Specialty Start Date End Date Cristina Oliver MD [address] [place] [address] PCP - General INTERNAL MEDICINE 02/13/16 Wilson Bullock MD [address] [place] [address] [place] Client Relationship Executive CARDIOVASCULAR DISEASE 02/13/16 08/26/24 Quincy Romero MD [address] [place] [address] Consulting Physician INTERVENTIONAL CARDIOLOGY 08/21/22 08/26/24 Kenny Handley APRN [address] [place] [address] Nurse Practitioner NURSE PRACTITIONER 03/20/23 08/26/24 Belgica Enriquez MD [address] [place] [address] Consulting Physician CARDIOVASCULAR DISEASE 08/27/24 documented as of this encounter
--- OUTSIDE RECORDS SUMMARY | 2024-09-28 07:04 | XMS_ITS | Encounter Summary ---
Author Organization [facility] Address [address] [place] [address] Care Team Providers Care Driver Salesman Name Role Phone Cristina Oliver MD Primary Care Provider [phone] Wilson Bullock MD Unavailable Unavailabl Quincy Chaudhry MD Unavailable [phone] Kenny Handley APRN Unavailable [phone] Belgica Enriquez MD Unavailable Encounter Details Date Type Department Care Team (Late st Contact Info) Description 01/14/2020 Abstract [facility] [address] [place] [address] Wilson Bullock MD Social History Tobacco Use Types Packs/Day Years Used Date Smoking Tobacco: Former Cigarettes Q uit: 12/29/2006 Smokeless Tobacco: Never Alcohol Use Standard Drinks/Week Comments Yes 0 (1 standard drink = 0.6 oz pur e alcohol) occasionally Sex and Gender Information Value Date Recorded Sex Assigned at Male 06/01/2024 7:55 AM MARINA PORTER Legal Sex Male 10:30 PM CDT Gender Identity Not on file Sexual Orientation Not on file 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 Not on file Not o n file documented as of this encounter Plan of Treatment Not on file documented as of this encounter Visit Diagnoses Not on filedocumented in this encounter Additional Health Concerns Infection Onset Date Last Indicated Resolved Time COVID-19 Rule Out 06/03/2020 06/03/2020 06/04/2020 5:52 PM MARINA PORTER documented as of this encounter Care Teams Driver Salesman Relationship Specialty Start Date End Date Cristina Oliver MD [address] [place] [address] PCP - General INTERNAL MEDICINE 02/13/16 Wilson Bullock MD [address] [place] [phone] [place] Benzene Operator CARDIOVASCULAR DISEASE 02/13/16 08/26/24 Quincy Romero MD [address] [place] [phone] Consulting Physician INTERVENTIONAL CARDIOLOGY 08/21/22 08/26/24 Kenny Handley APRN [address] [place] [address] Nurse Practitioner NURSE PRACTITIONER 03/20/23 08/26/24 Belgica Enriquez MD [address] [place] [address] Consulting Physician CARDIOVASCULAR DISEASE 08/27/24 documented as of this encounter
--- OUTSIDE RECORDS SUMMARY | 2024-09-28 07:04 | XMS_ITS | Encounter Summary ---
Author Organization [facility] Address [address] [place] [address] Care Team Providers Care Entry Driver Operator Name Role Phone Cristina Oliver MD Primary Care Provider [phone] Wilson Bullock MD Unavailable Unavailabl Quincy Chaudhry MD Unavailable [phone] Kenny Handley APRN Unavailable [phone] Belgica Enriquez MD Unavailable Encounter Details Date Type Department Care Team (Late st Contact Info) Description 01/18/2020 Abstract [facility] [address] [place] [address] Abstract, Doc [facility] Social History Tobacco Use Types Packs/Day Years Used Date Smoking Tobacco: Former Cigarettes Q uit: 12/29/2006 Smokeless Tobacco: Never Alcohol Use Standard Drinks/Week Comments Yes 0 (1 standard drink = 0.6 oz pur e alcohol) occasionally Sex and Gender Information Value Date Recorded Sex Assigned at Male 06/01/2024 7:55 AM SENIOR COMPLIANCE OFFICER Legal Sex Male 10:30 PM CDT Gender Identity Not on file Sexual Orientation Not on file 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 Date 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 on file Not on [...] ABSTRACTED VALID NASAL STRUCTURE / Unknown 10/26/2019 Cristina Oliver MD MICROBIOLOGY - GENERAL ORDERA BLES Final Result documented in this encounter Visit Diagnoses Not on filedocumented in this encounter Additional Health Concerns Infection Onset Date Last Indicated Resolved Time COVID-19 Rule Out 06/03/2020 06/03/2020 06/04/2020 5:52 PM SENIOR COMPLIANCE OFFICER documented as of this encounter Care Teams Entry Driver Operator Relationship Specialty Start Date End Date Cristina Oliver MD [address] [place] [address] PCP - General INTERNAL MEDICINE 02/13/16 Wilson Bullock MD [address] [place] [address] [place] Cage Maker CARDIOVASCULAR DISEASE 02/13/16 08/26/24 Quincy Romero MD [address] [place] [address] Consulting Physician INTERVENTIONAL CARDIOLOGY 08/21/22 08/26/24 Kenny Handley APRN [address] [place] [address] Nurse Practitioner NURSE PRACTITIONER 03/20/23 08/26/24 Belgica Enriquez MD [address] [place] [address] Consulting Physician CARDIOVASCULAR DISEASE 08/27/24 documented as of this encounter
[2024-09-28 07:26] LABS: Hematocrit 37.5 % (37.0-46.0); Hemoglobin 13.1 g/dL (12.4-15.3); Mean Corpuscular HGB Conc 34.9 g/dL (32-36); Mean Corpuscular Volume 91.7 fL (78.0-102.0); Mean Platelet Volume 8.9 fl (8.7-11.0); Platelet Count Result 165 K/mm3 (150-420); Red Blood Count 4.09 M/mm3 (4.70-6.10); Red Cell Distribution Width 11.9 % (11.6-14.4)
[2024-09-28 08:19] LABS: Influenza A QL RT-PCR Negative (Negative); Influenza B QL RT-PCR Negative (Negative); RSV RNA, RT-PCR Negative (Negative); SARS-CoV-2 RNA PCR Negative (Negative); Strep Group A RT-PCR NOT DETECTED (Negative)
[2024-09-28 08:33] LABS: Alanine Aminotransferase 36 U/L (6-50); Albumin Level 4.2 g/dL (3.5-5.1); Alkaline Phosphatase 87 U/L (38-126); Anion Gap 7 mmol/L (4-12); Aspartate Amino Transferase 31 U/L (17-59); Blood Urea Nitrogen 16 mg/dL (9-20); Calcium 9.3 mg/dL (8.4-10.2); Carbon Dioxide 25 mmol/L (22-30); Chloride 106 mmol/L (98-107); Estimated Glomerular Filt Rate > 60; Glucose 162 mg/dL (65-110); Osmolality Calculated 291 mOsm/kg (285-295); Potassium 4.1 mmol/L (3.4-5.0); Sodium 138 mmol/L (137-145); Total Protein 6.4 g/dL (6.3-8.2)
[2024-09-28 12:17] LABS: Creatine Kinase 75 U/L (55-170)
[2024-09-28 12:19] LABS: NT Pro B Type Natriuretic Pept 767 pg/mL (19.9-100)
== END 2024-09-28 07:00 | disposition home or self-care (01) ==
PROVIDERS: PCP Internal Medicine; Visit Provider Internal Medicine
DX: J06.9 Acute upper respiratory infection, unspecified (principal); R07.9 Chest pain, unspecified; I50.9 Heart failure, unspecified
CPT/HCPCS: 36415; 71046; 80053; 82550; 82553; 83880; 84484; 85027; 87637; 87651

== ENCOUNTER 2024-10-06 06:48 | Outpatient (CLI) | payer MEDICARE, SELFPAY ==
[2024-10-06 07:17] LABS: Basophils Absolute Auto 0.04 K/mm3 (0.00-0.10); Eosinophils Absolute Auto 0.18 K/mm3 (0.02-0.50); Eosinophils Percent Auto 4.5 % (1.0-6.0); Hematocrit 34.9 % (37.0-46.0); Hemoglobin 12.2 g/dL (12.4-15.3); Immature Granulocyte Absolute 0.02 K/mm3 (0.00-0.00); Immature Granulocyte Percent A 0.5 % (0.0-0.0); Lymphocytes Absolute Auto 0.74 K/mm3 (1.10-4.50); Lymphocytes Percent Auto 18.5 % (18.0-42.0); Mean Corpuscular Hemoglobin 31.9 pg (27.0-31.0); Mean Corpuscular Volume 91.4 fL (78.0-102.0); Mean Platelet Volume 9.3 fl (8.7-11.0); Monocytes Absolute Auto 0.38 K/mm3 (0.10-0.90); Monocytes Percent Auto 9.5 % (2.0-11.0); Neutrophils Absolute Auto 2.63 K/mm3 (1.70-7.20); Platelet Count Result 157 K/mm3 (150-420); Red Blood Count 3.82 M/mm3 (4.70-6.10); Red Cell Distribution Width 12.1 % (11.6-14.4)
[2024-10-06 07:31] LABS: Partial Thromboplastin Time 26.8 Sec (23.9-30.70)
[2024-10-06 07:35] LABS: Alanine Aminotransferase 39 U/L (6-50); Albumin Level 3.8 g/dL (3.5-5.1); Alkaline Phosphatase 85 U/L (38-126); Anion Gap 7 mmol/L (4-12); Aspartate Amino Transferase 30 U/L (17-59); Bilirubin,Total 0.8 mg/dL (0.2-1.3); Blood Urea Nitrogen 11 mg/dL (9-20); Calcium 8.8 mg/dL (8.4-10.2); Carbon Dioxide 24 mmol/L (22-30); Chloride 108 mmol/L (98-107); Estimated Glomerular Filt Rate > 60; Glucose 153 mg/dL (65-110); Osmolality Calculated 290 mOsm/kg (285-295); Sodium 139 mmol/L (137-145); Total Protein 5.8 g/dL (6.3-8.2)
[2024-10-06 07:43] LABS: NT Pro B Type Natriuretic Pept 775 pg/mL (19.9-100)
== END 2024-10-06 06:49 | disposition home or self-care (01) ==
LOC: CHSLAB 06:50
PROVIDERS: PCP Internal Medicine; Visit Provider Nurse Practitioner Family
DX: I50.89 Other heart failure (principal); I11.0 Hypertensive heart disease with heart failure; I50.9 Heart failure, unspecified; I25.10 Atherosclerotic heart disease of native coronary artery without angina pectoris
CPT/HCPCS: 36415; 80053; 83880; 85025; 85610; 85730

== ENCOUNTER 2025-01-18 07:01 | Outpatient (CLI) | payer MEDICARE, SELFPAY ==
[2025-01-18 07:33] LABS: Add Urine Microscopic? NO; Appearance Urine Clear (Clear); Glucose Urine UA Negative (Negative); Leukocyte Esterase Ur Negative (Negative); Nitrate Urine Negative (Negative); Specific Grav Ur >= 1.030 (1.010-1.020)
[2025-01-18 07:36] LABS: Hematocrit 38.1 % (37.0-46.0); Hemoglobin 13.1 g/dL (12.4-15.3); Immature Granulocyte Percent A 0.7 % (0.0-0.0); Immature Platelet Fraction Pct 1.4 % (1.0-7.0); Lymphocytes Absolute Auto 0.88 K/mm3 (1.10-4.50); Mean Corpuscular HGB Conc 34.4 g/dL (32-36); Mean Corpuscular Hemoglobin 31.7 pg (27.0-31.0); Mean Corpuscular Volume 92.3 fL (78.0-102.0); Nucleated Red Blood Cells Absolute Auto 0.00 K/mm3 (0.00-0.00); Nucleated Red Blood Cells Perc 0.0 % (0-0.0); Platelet Count Result 173 K/mm3 (150-420); Red Blood Count 4.13 M/mm3 (4.70-6.10); White Blood Count 4.4 K/mm3 (4.8-10.8)
[2025-01-18 07:53] LABS: MALB Creatinine Ratio 7.4 mg/g (0-30)
[2025-01-18 08:23] LABS: Hemoglobin A1C 5.9 % (<5.7)
[2025-01-18 08:34] LABS: Alanine Aminotransferase 37 U/L (6-50); Albumin Level 4.3 g/dL (3.5-5.1); Alkaline Phosphatase 80 U/L (38-126); Anion Gap 8 mmol/L (4-12); Aspartate Amino Transferase 50 U/L (17-59); Bilirubin,Total 1.0 mg/dL (0.2-1.3); Blood Urea Nitrogen 16 mg/dL (9-20); Calcium 9.6 mg/dL (8.4-10.2); Carbon Dioxide 24 mmol/L (22-30); Chloride 108 mmol/L (98-107); Cholesterol 132 mg/dL (0-200); Creatine Kinase 105 U/L (55-170); Estimated Glomerular Filt Rate > 60; Glucose 137 mg/dL (65-110); HDL Direct 34 mg/dL; Osmolality Calculated 293 mOsm/kg (285-295); Potassium 5.1 mmol/L (3.4-5.0); Sodium 140 mmol/L (137-145); Total Protein 6.5 g/dL (6.3-8.2); Triglycerides 211 mg/dL (<150)
[2025-01-18 08:43] LABS: NT Pro B Type Natriuretic Pept 1190 pg/mL (19.9-100)
[2025-01-18 08:51] LABS: Free T4 Free Thyroxine 1.23 ng/dL (0.78-2.19)
[2025-01-18 08:54] LABS: Free T3 4.04 pg/mL (2.18-3.98)
[2025-01-18 09:05] LABS: Thyroid Stimulating Hormone 2.780 uIU/mL (0.465-4.680)
== END 2025-01-18 07:02 | disposition home or self-care (01) ==
LOC: CHSLAB 07:05
PROVIDERS: PCP Internal Medicine
DX: E11.9 Type 2 diabetes mellitus without complications (principal); E78.2 Mixed hyperlipidemia; R53.82 Chronic fatigue, unspecified; I25.10 Atherosclerotic heart disease of native coronary artery without angina pectoris; E78.01 Familial hypercholesterolemia; I11.0 Hypertensive heart disease with heart failure
CPT/HCPCS: 36415; 80053; 80061; 81003; 82043; 82550; 83036; 83880; 84439; 84443; 84481; 85025; 85055

== ENCOUNTER 2025-04-06 07:02 | Outpatient (CLI) | payer MEDICARE, SELFPAY ==
[2025-04-06 07:21] LABS: Hematocrit 35.4 % (37.0-46.0); Hemoglobin 12.1 g/dL (12.4-15.3); Mean Corpuscular HGB Conc 34.2 g/dL (32-36); Mean Corpuscular Hemoglobin 31.1 pg (27.0-31.0); Mean Corpuscular Volume 91.0 fL (78.0-102.0); Platelet Count Result 163 K/mm3 (150-420); Red Blood Count 3.89 M/mm3 (4.70-6.10); White Blood Count 3.7 K/mm3 (4.8-10.8)
[2025-04-06 08:07] LABS: Cholesterol 161 mg/dL (0-200); HDL Direct 46 mg/dL; Triglycerides 229 mg/dL (<150)
== END 2025-04-06 07:03 | disposition home or self-care (01) ==
LOC: CHSLAB 07:05
PROVIDERS: PCP Internal Medicine
DX: D64.9 Anemia, unspecified (principal); E78.2 Mixed hyperlipidemia; I25.10 Atherosclerotic heart disease of native coronary artery without angina pectoris; I50.32 Chronic diastolic (congestive) heart failure; I11.0 Hypertensive heart disease with heart failure
CPT/HCPCS: 36415; 80061; 85027

== ENCOUNTER 2025-04-26 06:58 | Outpatient (CLI) | payer MEDICARE, SELFPAY ==
--- OUTSIDE RECORDS SUMMARY | 2025-04-26 07:04 | XMS_ITS | Patient Health Record ---
Author Organization [facility] Address [address] [facility] [address] [place] [address] Care Team Providers Care Extractor Tender Raw Stock Name Role Phone Dora Miles Unavailable [phone] Reason For Referral No Information Medications Medication SIG (Take, Route, Frequency, Duration) Notes Start Date End Date Status NIFEdipine ER Osmotic Release 30 MG Tablet Extended Release 24 Hour Oral Act minna Chlorthalidone 50 MG Tablet Oral Active Naproxen 500 MG Tablet Oral Active Carvedilol 25 MG Tablet Oral Active ALPRAZolam 0.25 MG Tablet Oral Active Omeprazole 40 MG Capsule Delayed Release Oral Active Lovastatin 40 MG Tablet Oral Active cloNIDine HCl 0.1 MG Tablet Oral Active hydrALAZINE HCl 50 MG Tablet Oral Active Amoxicillin-Pot Clavulanate 875-125 MG Tablet Oral Active oxyBUTYnin Chloride ER 5 MG Tablet Extended Release 24 Hour Oral Active Mupirocin 2% Ointment External Active traZODone HCl 50 MG Tablet Oral Active Ipratropium [place] 0.06 % Solution Nasal Active Eplerenone 50 mg Tablet Oral Active Potassium Chloride Rosita ER 20 MEQ Tablet Extended Release Oral Active Plan Of Treatment No Information
--- OUTSIDE RECORDS SUMMARY | 2025-04-26 07:05 | XMS_ITS | Encounter Summary ---
Author Organization [facility] Address [facility] [place] [address] Care Team Providers Care Technical Services Assistant Name Role Phone Cristina Oliver MD Primary Care Provider [phone] Wilson Bullock MD Unavailable Unavailabl e Quincy Romero MD Unavailable [phone] Kenny Handley APRN Unavailable [phone] Belgica Enriquez MD Unavailable Chiqui Lafleur MD Unavailable Encounter Details Date Type Department Care Team (Late st Contact Info) Description 01/13/2020 Abstract [facility] [address] [place] [address] Abstract, Doc [facility] Social History Tobacco Use Types Packs/Day Years Used Date Smoking Tobacco: Former Cigarettes Q uit: 12/29/2006 Smokeless Tobacco: Never Alcohol Use Standard Drinks/Week Comments Yes 0 (1 standard drink = 0.6 oz pur e alcohol) occasionally Sex and Gender Information Value Date Recorded Sex Assigned at Male 06/01/2024 7:55 AM ROOF BOLTER Legal Sex Male 10:30 PM CDT Gender Identity Not on file Sexual Orientation Not on file 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 Not on file Not o n file documented as of this encounter Plan of Treatment Upcoming Encounters Date Type Department Care Team (Late st Contact Info) Description 06/01/2025 1:00 PM ROOF BOLTER Office Visit [facility] [address] [place] [address] Caty John MD [address] [place], [place] [address] documented as of this encounter Visit Diagnoses Not on filedocumented in this encounter Additional Health Concerns Infection Onset Date Last Indicated Resolved Time COVID-19 Rule Out 06/03/2020 06/03/2020 06/04/2020 5:52 PM ROOF BOLTER documented as of this encounter Care Teams Technical Services Assistant Relationship Specialty Start Date End Date Cristina Oliver MD [address] [place] [address] PCP - General INTERNAL MEDICINE 02/13/16 Wilson Bullock MD [address] [place], [place] [address] [place] Customer Account Coordinator CARDIOVASCULAR DISEASE 02/13/16 08/26/24 Quincy Romero MD [address] [place] [address] Consulting Physician INTERVENTIONAL CARDIOLOGY 08/21/22 08/26/24 Kenny Handley APRN [address] [place] [phone] Nurse Practitioner NURSE PRACTITIONER 03/20/23 08/26/24 Belgica Enriquez MD [address] [place] [address] Consulting Physician CARDIOVASCULAR DISEASE 08/27/24 Chiqui Lafleur MD [address] [place] [address] Consulting Physician CARDIOVASCULAR DISEASE 10/25/24 documented as of this encounter
--- OUTSIDE RECORDS SUMMARY | 2025-04-26 07:05 | XMS_ITS | Encounter Summary ---
Author Organization [facility] Address [facility] [place] [address] Care Team Providers Care Area Secretary Name Role Phone Cristina Oliver MD Primary Care Provider [phone] Wilson Bullock MD Unavailable Unavailabl Quincy Chaudhry MD Unavailable [phone] Kenny Handley APRN Unavailable [phone] Belgica Enriquez MD Unavailable Chiqui Lafleur MD Unavailable Encounter Details Date Type Department Care Team (Late st Contact Info) Description 01/14/2020 Abstract [facility] [address] [place] [address] Wilson Bullock MD Social History Tobacco Use Types Packs/Day Years Used Date Smoking Tobacco: Former Cigarettes Q uit: 12/29/2006 Smokeless Tobacco: Never Alcohol Use Standard Drinks/Week Comments Yes 0 (1 standard drink = 0.6 oz pur e alcohol) occasionally Sex and Gender Information Value Date Recorded Sex Assigned at Male 06/01/2024 7:55 AM RADIOGRAPHER CARDIAC CATHETERIZATION Legal Sex Male 10:30 PM CDT Gender Identity Not on file Sexual Orientation Not on file 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 on file Not o n file documented as of this encounter Plan of Treatment Upcoming Encounters Date Type Department Care Team (Late st Contact Info) Description 06/01/2025 1:00 PM RADIOGRAPHER CARDIAC CATHETERIZATION Office Visit [facility] [address] [place] [address] Caty John MD [address] [place] [address] documented as of this encounter Visit Diagnoses Not on filedocumented in this encounter Additional Health Concerns Infection Onset Date Last Indicated Resolved Time COVID-19 Rule Out 06/03/2020 06/03/2020 06/04/2020 5:52 PM RADIOGRAPHER CARDIAC CATHETERIZATION documented as of this encounter Care Teams Area Secretary Relationship Specialty Start Date End Date Cristina Oliver MD [address] [place] [phone] PCP - General INTERNAL MEDICINE 02/13/16 Wilson Bullock MD [address] [place] [phone] [place] Archival Records Clerk CARDIOVASCULAR DISEASE 02/13/16 08/26/24 Quincy Romero MD [address] [place] [phone] Consulting Physician INTERVENTIONAL CARDIOLOGY 08/21/22 08/26/24 Kenny Handley APRN [address] [place] [phone] Nurse Practitioner NURSE PRACTITIONER 03/20/23 08/26/24 Belgica Enriquez MD [address] [place] [address] Consulting Physician CARDIOVASCULAR DISEASE 08/27/24 Chiqui Lafleur MD [address] [place] [address] Consulting Physician CARDIOVASCULAR DISEASE 10/25/24 documented as of this encounter
--- OUTSIDE RECORDS SUMMARY | 2025-04-26 07:05 | XMS_ITS | Encounter Summary ---
Author Organization [facility] Address [facility] [place] [address] Care Team Providers Care Patternmaker Pressure Cast Name Role Phone Cristina Oliver MD Primary Care Provider [phone] Wilson Bullock MD Unavailable Unavailabl e Quincy Romero MD Unavailable [phone] Kenny Handley APRN Unavailable [phone] Belgica Enriquez MD Unavailable Chiqui Lafleur MD Unavailable Encounter Details Date Type Department Care Team (Late st Contact Info) Description 01/18/2020 Abstract [facility] [address] [place] [address] Abstract, Doc [facility] Social History Tobacco Use Types Packs/Day Years Used Date Smoking Tobacco: Former Cigarettes Q uit: 12/29/2006 Smokeless Tobacco: Never Alcohol Use Standard Drinks/Week Comments Yes 0 (1 standard drink = 0.6 oz pur e alcohol) occasionally Sex and Gender Information Value Date Recorded Sex Assigned at Male 06/01/2024 7:55 AM UNDERGROUND ELECTRICIAN Legal Sex Male 10:30 PM CDT Gender Identity Not on file Sexual Orientation Not on file 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 Date 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 Not on file [...] st Contact Info) Description 06/01/2025 1:00 PM UNDERGROUND ELECTRICIAN [facility] [address] [place] [address] Caty John MD [address] [place], [place] [address] documented as of this encounter Procedures Procedure [...] Rule Out 06/03/2020 06/03/2020 06/04/2020 5:52 PM UNDERGROUND ELECTRICIAN documented as of this encounter Care Teams Patternmaker Pressure Cast Relationship Specialty Start Date End Date Cristina Oliver MD [address] [place] [address] PCP - General INTERNAL MEDICINE 02/13/16 Wilson Bullock MD [address] [place] [address] [place] [employer] Writer CARDIOVASCULAR DISEASE 02/13/16 08/26/24 Quincy Romero MD [address] [place] [address] Consulting Physician INTERVENTIONAL CARDIOLOGY 08/21/22 08/26/24 Kenny Handley APRN [address] [place] [phone] Nurse Practitioner NURSE PRACTITIONER 03/20/23 08/26/24 Belgica Enriquez MD [address] [place], [place] [address] Consulting Physician CARDIOVASCULAR DISEASE 08/27/24 Chiqui Lafleur MD [address] [place] [address] Consulting Physician CARDIOVASCULAR DISEASE 10/25/24 documented as of this encounter
--- OUTSIDE RECORDS SUMMARY | 2025-04-26 07:05 | XMS_ITS | Encounter Summary ---
Author Organization [facility] Address [address] [place] [address] Care Team Providers Care Medical Screener Name Role Phone Cristina Oliver MD Primary Care Provider [phone] Wilson Bullock MD Unavailable Unavailabl e Quincy Romero MD Unavailable [phone] Kenny Handley APRN Unavailable [phone] Belgica Enriquez MD Unavailable Chiqui Lafleur MD Unavailable Encounter Details Date Type Department Care Team (Late st Contact Info) Description 07/24/2023 Abstract [facility] [address] [place] [address] Abstract, Doc [facility] Social History Tobacco Use Types Packs/Day Years Used Date Smoking Tobacco: Former Cigarettes Q uit: 12/29/2006 Smokeless Tobacco: Never Alcohol Use Standard Drinks/Week Comments Yes 0 (1 standard drink = 0.6 oz pur e alcohol) Occasionally Sex and Gender Information Value Date Recorded Sex Assigned at Male 06/01/2024 7:55 AM CREDIT CARD INTERVIEWER Legal Sex Male 10:30 PM CDT Gender Identity Not on file Sexual Orientation Not on file 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 Date 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, 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 Not on file Not on file documented as of this encounter Plan of Treatment Upcoming Encounters Date Type Department Care Team (Late st Contact Info) Description 06/01/2025 1:00 PM CREDIT CARD INTERVIEWER Office Visit [facility] [address] [place] [address] Caty John MD [address] [place] [address] documented as of this encounter Procedures Procedure [...] on filedocumented in this encounter Care Teams Medical Screener Relationship Specialty Start Date End Date Cristina Oliver MD [address] [place] [address] PCP - General INTERNAL MEDICINE 02/13/16 Wilson Bullock MD [address] [place] [address] [place] Email Administrator CARDIOVASCULAR DISEASE 02/13/16 08/26/24 Quincy Romero MD [address] [place] [address] Consulting Physician INTERVENTIONAL CARDIOLOGY 08/21/22 08/26/24 Kenny Handley APRN [address] [place] [phone] Nurse Practitioner NURSE PRACTITIONER 03/20/23 08/26/24 Belgica Enriquez MD [address] [place], [place] [address] Consulting Physician CARDIOVASCULAR DISEASE 08/27/24 Chiqui Lafleur MD [address] [place] [address] Consulting Physician CARDIOVASCULAR DISEASE 10/25/24 documented as of this encounter
--- OUTSIDE RECORDS SUMMARY | 2025-04-26 07:05 | XMS_ITS | Encounter Summary ---
Author Organization [facility] Address [address] [place] [address] Care Team Providers Care Senior Automation Engineer Name Role Phone Cristina Oliver MD Primary Care Provider [phone] Wilson Bullock MD Unavailable Unavailabl e Quincy Romero MD Unavailable [phone] Kenny Handley APRN Unavailable [phone] Belgica Enriqeuz MD Unavailable Chiqui Lafleur MD Unavailable Encounter Details Date Type Department Care Team (Late st Contact Info) Description 01/30/2021 [facility] [address] [place] [address] Abstract, Doc [facility] Social History Tobacco Use Types Packs/Day Years Used Date Smoking Tobacco: Former Cigarettes Q uit: 12/29/2006 Smokeless Tobacco: Never Alcohol Use Standard Drinks/Week Comments Yes 0 (1 standard drink = 0.6 oz pur e alcohol) occasionally Sex and Gender Information Value Date Recorded Sex Assigned at Male 06/01/2024 7:55 AM ARCH SUPPORT MAKER Legal Sex Male 10:30 PM CDT Gender Identity Not on file Sexual Orientation Not on file 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 on file Not o n file documented as of this encounter Plan of Treatment Upcoming Encounters Date Type Department Care Team (Late st Contact Info) Description 06/01/2025 1:00 PM ARCH SUPPORT MAKER Office Visit [facility] [address] [place] [address] Caty John MD [address] [place] [address] documented as of this encounter Procedures Procedure [...] on filedocumented in this encounter Care Teams Senior Automation Engineer Relationship Specialty Start Date End Date Cristina Oliver MD [address] [place] [address] PCP - General INTERNAL MEDICINE 02/13/16 Wilson Bullock MD [address] [place] [address] [place] Splitting Machine Tender CARDIOVASCULAR DISEASE 02/13/16 08/26/24 Quincy Romero MD [address] [place] [address] Consulting Physician INTERVENTIONAL CARDIOLOGY 08/21/22 08/26/24 Kenny Handley APRN [address] [place] [address] Nurse Practitioner NURSE PRACTITIONER 03/20/23 08/26/24 Belgica Enriquez MD [address] [place], [place] [phone] Consulting Physician CARDIOVASCULAR DISEASE 08/27/24 Chiqui Lafleur MD [address] [place] [address] Consulting Physician CARDIOVASCULAR DISEASE 10/25/24 documented as of this encounter
--- OUTSIDE RECORDS SUMMARY | 2025-04-26 07:05 | XMS_ITS | Encounter Summary ---
Author Organization [facility] Address [facility] [place] [address] Care Team Providers Care Roofing Machine Operator Name Role Phone Cristina Oliver MD Primary Care Provider [phone] Wilson Bullock MD Unavailable Unavailabl e Quincy Romero MD Unavailable [phone] Kenny Handley APRN Unavailable [phone] Belgica Enriquez MD Unavailable Chiqui Lafleur MD Unavailable Encounter Details Date Type Department Care Team (Late st Contact Info) Description 06/15/2019 Abstract [facility] [address] [place] [address] Abstract, Doc [facility] Social History Tobacco Use Types Packs/Day Years Used Date Smoking Tobacco: Former Cigarettes Q uit: 12/29/2006 Smokeless Tobacco: Never Alcohol Use Standard Drinks/Week Comments Yes 0 (1 standard drink = 0.6 oz pur e alcohol) occasionally Sex and Gender Information Value Date Recorded Sex Assigned at Male 06/01/2024 7:55 AM HIGH VOLTAGE ELECTRICIAN Legal Sex Male 10:30 PM CDT Gender Identity Not on file Sexual Orientation Not on file 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 on file Not o n file documented as of this encounter Plan of Treatment Upcoming Encounters Date Type Department Care Team (Late st Contact Info) Description 06/01/2025 1:00 PM HIGH VOLTAGE ELECTRICIAN Office Visit [facility] [address] [place] [address] Caty John MD [address] [place] [address] documented as of this encounter Procedures Procedure [...] Rule Out 06/03/2020 06/03/2020 06/04/2020 5:52 PM HIGH VOLTAGE ELECTRICIAN documented as of this encounter Care Teams Roofing Machine Operator Relationship Specialty Start Date End Date Cristina Oliver MD [address] [place] [phone] PCP - General INTERNAL MEDICINE 02/13/16 Wilson Bullock MD [address] [place] [phone] [place] Supply Analyst CARDIOVASCULAR DISEASE 02/13/16 08/26/24 Quincy Romero MD [address] [place] [phone] Consulting Physician INTERVENTIONAL CARDIOLOGY 08/21/22 08/26/24 Kenny Handley APRN [address] [place] [phone] Nurse Practitioner NURSE PRACTITIONER 03/20/23 08/26/24 Belgica Enriquez MD [address] [place] [phone] Consulting Physician CARDIOVASCULAR DISEASE 08/27/24 Chiqui Lafleur MD [address] [place] [address] Consulting Physician CARDIOVASCULAR DISEASE 10/25/24 documented as of this encounter
--- OUTSIDE RECORDS SUMMARY | 2025-04-26 07:05 | XMS_ITS | Encounter Summary ---
Author Organization [facility] Address [address] [place] [address] Care Team Providers Care Computer Systems Support Specialist Name Role Phone Cristina Oliver MD Primary Care Provider [phone] Wilson Bullock MD Unavailable Unavailabl e Quincy Romero MD Unavailable [phone] Kenny Handley APRN Unavailable [phone] Belgica Enriquez MD Unavailable Chiqui Lafleur MD Unavailable Encounter Details Date Type Department Care Team (Late st Contact Info) Description 09/19/2020 Abstract [facility] [address] [place] [phone] Wilson Bullock MD Social History Tobacco Use Types Packs/Day Years Used Date Smoking Tobacco: Former Cigarettes Q uit: 12/29/2006 Smokeless Tobacco: Never Tobacco Cessation:Counseling Given: Not Answered Alcohol Use Standard Drinks/Week Comments Yes 0 (1 standard drink = 0.6 oz pur e alcohol) Occasionally Sex and Gender Information Value Date Recorded Sex Assigned at Male 06/01/2024 7:55 AM HEALTH COMPANION Legal Sex Male 10:30 PM CDT Gender Identity Not on file Sexual Orientation Not on file 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 Date 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, 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 Not on file Not on file documented as of this encounter Plan of Treatment Upcoming Encounters Date Type Department Care Team (Late st Contact Info) Description 06/01/2025 1:00 PM HEALTH COMPANION Office Visit [facility] [address] [place] [phone] Caty John MD [address] [place], [place] [address] documented as of this encounter Visit Diagnoses Not on filedocumented in this encounter Care Teams Computer Systems Support Specialist Relationship Specialty Start Date End Date Cristina Oliver MD [address] [place] [address] PCP - General INTERNAL MEDICINE 02/13/16 Wilson Bullock MD [address] [place] [address] [place] Auto Accessories Installer CARDIOVASCULAR DISEASE 02/13/16 08/26/24 Quincy Romero MD [address] [place] [phone] Consulting Physician INTERVENTIONAL CARDIOLOGY 08/21/22 08/26/24 Kenny Handlye APRN [address] [place] [address] Nurse Practitioner NURSE PRACTITIONER 03/20/23 08/26/24 Belgica Enriquez MD [address] [place] [address] Consulting Physician CARDIOVASCULAR DISEASE 08/27/24 Chiqui Lafleur MD [address] [place] [address] Consulting Physician CARDIOVASCULAR DISEASE 10/25/24 documented as of this encounter
--- OUTSIDE RECORDS SUMMARY | 2025-04-26 07:05 | XMS_ITS | Encounter Summary ---
Author Organization [facility] Address [facility] [place] [address] Care Team Providers Care Strategic Client Executive Name Role Phone Cristina Oliver MD Primary Care Provider [phone] Wilson Bullock MD Unavailable Unavailabl e Quincy Romero MD Unavailable [phone] Kenny Handley APRN Unavailable [phone] Belgica Enriquez MD Unavailable Chiqui Lafleur MD Unavailable Encounter Details Date Type Department Care Team (Late st Contact Info) Description 06/07/2024 Hospital Follow-up Call [facility] [address] [place] [address] Svetlana Damon, RN Social History Tobacco Use Types Packs/Day Years Used Date Smoking Tobacco: Former Cigarettes Q uit: 12/29/2006 Smokeless Tobacco: Never Alcohol Use Standard Drinks/Week Comments Yes 0 (1 standard drink = 0.6 oz pur e alcohol) Occasionally [facility] Utilities Answer Date Recorded In the past 12 months has [employer] electric, gas, oil, or water company threatened [...] any time in the past 12 m [facility], were you homeless or living in a longterm (including now)? 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 [...] documented in this encounter Plan of Treatment Upcoming Encounters Date Type Department Care Team (Late st Contact Info) Description 06/01/2025 1:00 PM CHILD THERAPIST [facility] [address] [place] [phone] Caty John MD [address] [place], [place] [address] documented as of this encounter Visit Diagnoses Not on filedocumented in this encounter Care Teams Strategic Client Executive Relationship Specialty Start Date End Date Cristina Oliver MD [address] [place] [address] PCP - General INTERNAL MEDICINE 02/13/16 Wilson Bullock MD [address] [place] [address] [place] Pulling Unit Operator CARDIOVASCULAR DISEASE 02/13/16 08/26/24 Quincy Romeor MD [address] [place] [address] Consulting Physician INTERVENTIONAL CARDIOLOGY 08/21/22 08/26/24 Kenny Handley APRN [address] [place] [phone] Nurse Practitioner NURSE PRACTITIONER 03/20/23 08/26/24 Belgica Enriquez MD [address] [place], [place] [address] Consulting Physician CARDIOVASCULAR DISEASE 08/27/24 Chiqui Lafleur MD [address] [place], [place] [address] Consulting Physician CARDIOVASCULAR DISEASE 10/25/24 documented as of this encounter
--- OUTSIDE RECORDS SUMMARY | 2025-04-26 07:05 | XMS_ITS | Clinical Summary ---
Author Organization [facility] Address [facility] [place] [address] Care Team Providers Care Title Department Manager Name Role Phone Cristina Oliver MD Primary Care Provider [phone] Karlos Cho MD Unavailable Allergies Active Allergy Reactions Criticality Noted Date Comments Atorvastatin Other (see comment) High 11/30/2017 States he develops very high Liver function tests. Codeine Hives 06/02/2020 Lisinopril Swelling 02/29/2016 Losartan Swelling 02/29/2016 Propoxyphene Itching 02/29/2016 Spironolactone GI Upset 02/29/2016 Medications Multiple Vitamins-Minera ls (PX COMPLETE SENIOR MULTIVITS) TabIndications: supplement Take 1 tablet by mouth daily. Indications: supplement 03/17/20 15 Active trazodone 50 MG tabletIndicatio ns:Sleep Disturbance Take 1 tablet (50 mg total) by mouth nightly at bedtime. Indications: Disturbed Sleep 03/17/20 15 Active ALPRAZolam 0.25 MG tabletIndicatio ns:Sleep Disturbance Take 1 tablet by mouth 2 (two) times daily as needed for Sleep. Indications: Disturbed Sleep Active omeprazole (PRILOSEC) 40 MG capsuleIndicati ons:Prophylaxis Take 1 capsule (40 mg total) by mouth daily. 90 capsule 3 02/26/20 24 Active NUBEQA 300 MG tabletIndicatio ns:Prostate Carcinoma Take 2 tablets by mouth 2 (two) times daily. Indications: Prostate Carcinoma 06/04/19 25 Active metFORMIN (GLUCOPHAGE) 500 MG tabletIndicatio ns:Diabetes Mellitus take 1 tablet daily 11/23/19 25 Active acetaminophen (TYLENOL) 500 MG tabletIndicatio ns:Pain Take 2 tablets by mouth every 6 (six) hours as needed for Pain. Indications: Pain 02/02/20 25 Active aspirin EC (ECOTRIN) 81 MG tabletIndicatio ns:Prophylaxis Take 1 tablet (81 mg total) by mouth daily. Indications: Preventative Treatment 90 tablet 3 02/12/20 25 Active lovastatin (MEVACOR) 40 MG tabletIndicatio ns:Hypercholest erolemia Take 1 tablet (40 mg total) by mouth nightly at bedtime. Indications: High Amount of Cholesterol in the Blood 90 tablet 3 02/12/20 25 Active carvedilol (COREG) 12.5 MG tabletIndicatio ns:Irregular Blood Pressure Take 1 tablet (12.5 mg total) by mouth 2 (two) times daily. Indications: Irregular Blood Pressure 180 tablet 11 02/16/20 25 Active furosemide (LASIX) 20 MG tabletIndicatio ns:Coronary Artery Bypass Graft Take 1 tablet (20 mg total) by mouth daily. Indications: Coronary Bypass Surgery 90 tablet 3 02/12/20 25 025 Discontin ued(Error ) potassium chloride CR (KLOR-CON M) 10 MEQ tabletIndicatio ns:Coronary Artery Bypass Graft Take 1 tablet (10 mEq total) by mouth daily. Indications: Coronary Bypass Surgery 90 tablet 3 02/12/20 25 025 Discontin ued(Error ) Active Problems Problem Noted Date Diagnosed Date NSTEMI (non-ST elevated myocardial infarction) 0 01/18/2025 Chronic diastolic (congestive) heart failure 05/2022 Long-term use of high-risk medication 11/08/2019 Bilateral carotid artery stenosis 01/14/2019 Acute non-ST elevation myocardial infarction (NS CHRISTOPH) 12/01/2017 Overview (12/04/2017): lateral wall Unstable angina 11/30/2017 Acute non-ST elevation myocardial infarction (NS CHRISTOPH) 02/06/2017 Hx of non-ST elevation myocardial infarction [...] and mid left circumflex at [facility] Benign essential hypertension CAD (coronary artery disease) Chronic kidney disease GERD (gastroesophageal reflux disease) Hyperlipidemia LVH (left ventricular hypertrophy) Carotid stenosis, asymptomatic, bilateral Encounters Date Type Department Care Team Description 04/19/2025 Telephone [facility] [address] [place] [address] Caty John MD Medication Problem 04/12/2025 Abstract [facility] [address] [place] [address] Karlos Cho MD 04/06/2025 Telephone [facility] [address] [place] [address] Karlos Cho MD Medication Information 03/01/2025 Telephone [facility] [address] [place] [address] Karlos Cho MD Information 02/28/2025 11:15 AM CDT - 02/28/2025 11:59 PM CDT Hospital Encounter [facility] Diagnostic Imaging [address] [place] [address] Lisa Vega MD Discharge Disposition: Home or Self Care (Routine Discharge) 02/28/2025 Scan [facility] [address] [place] [address] Scanned, Doc Pccl 02/28/2025 Travel 02/22/2025 12:30 PM CDT Home Care Visit [facility] [address] [place] [address] Maria Guadalupe Meyers, RN SN OASIS DISCHARGE/ASSESSMENT 02/22/2025 Home Care Visit [facility] [address] [place] [address] Maria Guadalupe Meyers, [facility] INTERDISCIPLINARY MT 02/15/2025 Orders Only [facility] [address] [place] [address] Karlos Cho MD 02/15/2025 [address] [facility] [address] [place] [address] Karlos Cho MD Error 02/14/2025 11:45 AM CDT Home Care Visit [facility] [address] [place] [address] Maria Guadalupe Meyers RN SN HOME VISIT 02/11/2025 11:15 AM CDT Office Visit [facility] [address] [place] [address] Karlos Cho MD Heart Problem 02/11/2025 Orders Only [facility] [address] [place] [address] Karlos Cho MD 02/11/2025 Travel 02/10/2025 Telephone [facility] [address] [place] [address] Karlos Cho MD Appointment Reminder 02/09/2025 Orders Only [facility] [address] [place] [address] Karlos Cho MD 02/08/2025 Orders Only [facility] [address] [place] [address] Karlos Cho MD 02/07/2025 12:45 PM CDT Home Care Visit [facility] Home Care [facility] [address] [place] [address] Maria Guadalupe Meyers RN SN HOME VISIT 02/04/2025 12:00 PM CDT Home Care Visit [facility] Home Care [facility] [address] [place] [address] Cherry Cazares RN SN HOME VISIT 02/03/2025 Telephone [facility] [address] [place] [address] Karlos Cho MD Reschedule (Too early) 02/03/2025 Hospital Follow-up Call [facility] Cardiovascular Care Unit [address] [place] [address] Svetlana Damon RN 02/02/2025 12:45 PM CDT Home Care Visit [facility] Care [facility] [address] [place] [address] Cherry Cazares RN SN OASIS START OF CARE 02/02/2025 Plan of Care Documentation [facility] Home Care [facility] [address] [place] [address] 02/01/2025 10:45 AM CDT Home Care Visit [facility] Home Care [facility] [address] [place] [address] Laurie Echevarria, MENTAL HEALTH DIRECTOR VISIT 01/27/2025 11:00 AM CDT - 01/27/2025 3:35 PM CDT [facility] [address] [place] [address] Lisa Vega MD CABG, IRENE, POSSIBLE AVR 01/27/2025 10:46 AM CDT Anesthesia [facility] [address] [place] [address] Ki Dukes MD 01/22/2025 10:51 AM CDT - 02/01/2025 12:59 PM CDT Hospital Encounter [facility] Cardiovascular Care Unit [address] [place] [address] Cristiano Calderon, FURNITURE ASSEMBLY SUPERVISOR Jimmie Martinez MD Mahmoud, Anas, MD Stevens, William S, MD Medical Problem Discharge Disposition: Home with Home Health Care from Last 3 Months Immunizations Immunization Administration [...] = 0.6 oz pur e alcohol) Occasionally OASIS D0700: Social Isolation Answer Da te Recorded Frequency of experiencing loneliness or isolatio n Never 02/22/2025 OASIS A1250: Transportation Answer Date Recorded Lack of Transportation (Medical) No 02/22/2025 Lack of Transportation (Non-Medical) No 02/22/2025 Patient Unable or Declines to Respond No 02/22/2025 OASIS B1300: Health Literacy Answer Brian e Recorded Frequency of needing help to read materials from doctor or pharmacy Never 02/22/2025 B1300 Health Literacy Answer Date Recor ded How often do you need to hav e someone help you when you read instructions, pamphlets, or other written material from your doctor or pharmacy? Never 01/22/2025 [facility] Utilities Answer Date Recorded In the past 12 months has th e electric, gas, oil, or water company threatened to shut off services in your home? No 01/22/2025 Humiliation, Afraid, Rape, and Kick questionnair e Answer Date Recorded Within the last year, have y ou been afraid of your partner or ex-partner? Patient declined 01/22/2025 Within the last year, have y ou been humiliated or emotionally abused in other ways by your partner or ex-partner? Patient declined 01/22/2025 Within the last year, have y ou been kicked, hit, slapped, or otherwise physically hurt by your partner or ex-partner? Patient declined 01/22/2025 Within the last year, have y ou been raped or forced to have any kind of sexual activity by your partner or ex-partner? Patient declined 01/22/2025 Social Connection and Isolation Panel Answer Date Recorded In a typical week, how many times do you talk on the phone with family, friends, or neighbors? Patient declined 01/22/2025 How often do you get togethe r with friends or relatives? Patient declined 01/22/2025 How often do you attend evangelical or scientologist serv ices? Patient declined 01/22/2025 Do you belong to any clubs o r organizations such as evangelical groups, unions, fraGlocal or athletic groups, or school groups? Patient declined 01/22/2025 How often do you attend meet ings of the clubs or organizations you belong to? Patient declined 01/22/2025 Are you , , di vorced, , never , or living with a partner? Patient declined 01/22/2025 AUDIT-C Answer Date Recorded Q1: How often do you have a drink containing alc ohol? 2-4 times a month 01/22/2025 Q2: How many drinks containi ng alcohol do you have on a typical day when you are drinking? 1 or 2 01/22/2025 Q3: How often do you have si x or more drinks on one occasion? Monthly 01/22/2025 Overall Financial Resource Strain (CARDIA) Answe r Date Recorded How hard is it for you to pa y for the very basics like food, housing, medical care, and heating? Patient declined 01/22/2025 [facility] - Occupational Stress Questionnaire Answer Date Recorded Do you feel stress - tense, restless, nervous, or anxious, or unable to sleep at night because your mind is troubled all the time - these days? Not at all 01/22/2025 Exercise Vital Sign Answer Date Recorde d Days of Exercise per Week Not on file 2024 On average, how many minutes do you engage in exercise at this level? Patient declined 01/22/2025 Hunger Vital Sign Answer Date Recorded Within the past 12 months, y ou worried that your food would run out before you got the money to buy more. Never true 01/23/20 25 Within the past 12 months, t he food you bought just didn't last and you didn't have money to get more. Never true 01/22/2025 PRAPARE - Transportation Answer Date Re corded In the past 12 months, has l ack of transportation kept you from medical appointments or from getting medications? No 10/2024 In the past 12 months, has l ack of transportation kept you from meetings, work, or from getting things needed for daily living? No 01/22/2025 Housing Stability Vital Sign Answer Brian e Recorded In the last 12 months, was t here a time when you were not able to pay the mortgage or rent on time? Patient declined 01/23/20 In the past 12 months, how m any times have you moved where you were living? 0 01/22/2025 At any time in the past [address] [facility], were you homeless or living in a mcc (including now)? 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 Not on file Not on file Last Filed Vital Signs Vital Sign Reading Time Taken Comments Blood Pressure 140/70 02/22/2025 12:56 PM CDT Pulse 72 02/22/2025 12:56 PM CDT Temperature 36.7 C (98.1 F) 02/22/2025 12:56 PM CDT Respiratory Rate 18 02/22/2025 12:56 PM CDT Oxygen Saturation 98% 02/22/2025 12:56 PM CDT Inhaled Oxygen Concentration - - Weight 95.3 kg (210 lb) 02/14/2025 12:10 PM CDT Height 182.9 cm (6') 02/11/2025 10:44 AM CDT Body Mass Index 28.48 02/11/2025 10:44 AM CDT Plan of Treatment Upcoming Encounters Date Type Department Care Team (Late st Contact Info) Description 06/01/2025 1:00 PM SLOT OPERATIONS DIRECTOR [facility] Visit [facility] [address] [place] [address] Caty John MD [address] [place], [place] [address] Health Maintenance Due Date Last Done Comments Kidney Health Evaluation 1945 COVID-19 Vaccine (#1) 1951 Diabetes: Retinopathy Eye Exam 1963 Hepatitis C 1964 Zoster Vaccines (1 of 2) 1996 Annual Medicare Wellness Visit 2011 DTaP, Tdap and Td Vaccines (2 - Td or Tdap) 04/27/2020 04/27/2010 RSV Immunization or 60+ Years (1 - 1-dose 75+ series) 2021 Influenza Adult (#1) 2025 03/04/2018, 02/07/2017, 02/22/2016, Additional history exists Hemoglobin A1C 07/22/2025 01/22/2025, 05/19, 07/16/2023, Additional history exists Lipid Panel 04/06/2026 04/06/2025, 0911/2024, 09/29/2024, Additional history exists Pneumococcal Vaccine: 50+ Years Completed 02/25/2018, 01/19/2015, 05/04/2012 Hepatitis A Vaccines Aged Out No long er eligible based on patient's age to complete this topic Meningococcal B Vaccine Aged Out No l onger eligible based on patient's age to complete this topic Meningococcal Vaccine Aged Out No sandy reza eligible based on patient's age to complete this topic RSV Immunizations Under 20 Months Aged Out No longer eligible based on patient's age to complete this topic Medical Devices Implanted Type Area Digital Intern Device Identifier Shelf Expiration Date Model / Serial / Lot Graft Patch Hemashield Diamondhead 0.8cmx7.6cm - [id number] Implanted:Qty: 1 on 01/27/2025 by Lisa Vega MD at [facility] Graft [employer] 04/17/2029 [id number] / [id number] Iol [employer] Li61ao - [id number] Implanted:Qty: 1 on 06/06/2020 by Troy Reddy MD at [facility] Lens Right: Eye [employer] [id number] 02/15/2023 [id number] / [id number] Description:Lens verified pe r surgeon Stent- 7 Implanted:Qty: 1 on 02/03/2017 by David Braun MD Stent Left: Heart [employer] SYNE RGY MR SHERIF / / Description:Synergy MR SHERIF S tent Cv Muhammad Xience 2.5mm X 28mm Sherif Mid Om3-06/02/2024 Implanted:05/19 by Quincy Romero MD (Quantity not on file) Stent Coronary [employer] 02/04/2026 [id number] / [id number] / Cv Muhammad Xience 3.0mm X 28mm Sherif Mid Circ-06/02/2024 Implanted:05/19 by Quincy Romero MD (Quantity not on file) Stent Coronary LCX [employer] 08/06/2026 [id number] / [id number] / Biotronik Orsiro 3.5mm X 18mm-09/29/2024 Implanted:Qty: 1 on 09/29/2024 by Lucas Hummel MD Stent Coronary LCX [employer] 12/27/2025 [id number] / / [id number] Procedures Procedure Name Priority Date/Time Associated Diagnosis Comments LIPID PANEL Routine 04/06/2025 CBC, MANUAL DIFF Routine 04/06/2025 XR CHEST PA+LAT Routine 02/28/2025 11:34 AM CDT S/P CABG (coronary artery bypass graft) ELECTROCARDIOGRAM (NON MIDMARK ACQUIRED) Routine 02/11/2025 10:49 AM CDT Benign essential hypertension Mixed hyperlipidemia POCT GLUCOSE - DOCKED DEVICE Routine 02/01/2025 5:46 AM CDT XR CHEST PA+LAT Today 02/01/2025 5:32 AM CDT HC COMPREHENSIVE METABOL PANEL Routine 02/01/2025 3:23 AM CDT HC CBC AUTO W/AUTO DIFF Routine 02/02/20 3:23 AM CDT HC MAGNESIUM Routine 02/01/2025 3:23 AM CDT HC PROTHROMBIN TIME (PT) Routine 3:23 AM CDT POCT GLUCOSE - DOCKED DEVICE Routine 01/31/2025 9:13 PM CDT POCT GLUCOSE - DOCKED DEVICE Routine 01/31/2025 4:37 PM CDT POCT GLUCOSE - DOCKED DEVICE Routine 01/31/2025 11:25 AM CDT XR CHEST PA+LAT Today 01/31/2025 9:18 AM CDT POCT GLUCOSE - DOCKED DEVICE Routine 01/31/2025 5:29 AM CDT HC COMPREHENSIVE METABOL PANEL Routine 01/31/2025 3:25 AM CDT HC CBC AUTO W/AUTO DIFF Routine 02/01/20 3:25 AM CDT HC MAGNESIUM Routine 01/31/2025 3:25 AM CDT HC PROTHROMBIN TIME (PT) Routine 3:25 AM CDT POCT GLUCOSE - DOCKED DEVICE Routine 01/30/2025 9:15 PM CDT POCT GLUCOSE - DOCKED DEVICE Routine 01/30/2025 4:49 PM CDT XR CHEST PA+LAT Today 01/30/2025 1:21 PM CDT POCT GLUCOSE - DOCKED DEVICE Routine 01/30/2025 11:10 AM CDT HC CBC W/O DIFF Routine 01/30/2025 10:48 AM CDT POCT GLUCOSE - DOCKED DEVICE Routine 01/30/2025 6:12 AM CDT HC MAGNESIUM Routine 01/30/2025 4:10 AM CDT HC CBC AUTO W/AUTO DIFF Routine 01/31/20 4:10 AM CDT HC COMPREHENSIVE METABOL PANEL Routine 01/30/2025 4:10 AM CDT HC PROTHROMBIN TIME (PT) Routine 025 4:10 AM CDT POCT GLUCOSE - DOCKED DEVICE Routine 01/29/2025 9:07 PM CDT POCT GLUCOSE - DOCKED DEVICE Routine 01/29/2025 5:10 PM CDT POCT GLUCOSE - DOCKED DEVICE Routine 01/29/2025 12:09 PM CDT POCT GLUCOSE - DOCKED DEVICE Routine 01/29/2025 11:40 AM CDT ECG 12-LEAD Routine 01/29/2025 8:16 AM CDT POCT GLUCOSE - DOCKED DEVICE Routine 01/29/2025 6:29 AM CDT XR CHEST PORTABLE Routine 01/29/2025 5:56 AM CDT HC MAGNESIUM Routine 01/29/2025 4:30 AM CDT HC CBC AUTO W/AUTO DIFF Routine 01/30/20 4:30 AM CDT HC COMPREHENSIVE METABOL PANEL Routine 01/29/2025 4:30 AM CDT HC PROTHROMBIN TIME (PT) Routine 025 4:30 AM CDT POCT GLUCOSE - DOCKED DEVICE Routine 01/28/2025 7:37 PM CDT HC BASIC METABOLIC PANEL TIMED 6:33 PM CDT POCT GLUCOSE - DOCKED DEVICE Routine 01/28/2025 4:11 PM CDT POCT ACUTE ARTERIAL PANEL Routine 01/28/2025 2:52 PM CDT HEMOGLOBIN AND HEMATOCRIT TIMED 01/28/2025 12:20 PM CDT POCT GLUCOSE - DOCKED DEVICE Routine 01/28/2025 11:09 AM CDT POCT GLUCOSE - DOCKED DEVICE Routine 01/28/2025 8:50 AM CDT POCT ACUTE ARTERIAL PANEL Routine 01/28/2025 6:51 AM CDT HC MAGNESIUM Routine 01/28/2025 5:52 AM CDT HC COMPREHENSIVE METABOL PANEL Routine 01/28/2025 5:52 AM CDT HC CBC AUTO W/AUTO DIFF Routine 01/29/20 25 5:52 AM CDT HC PROTHROMBIN TIME (PT) Routine 025 5:52 AM CDT POCT GLUCOSE - DOCKED DEVICE Routine 01/28/2025 5:51 AM CDT XR CHEST PORTABLE Routine 01/28/2025 5:19 AM CDT ECG 12-LEAD Routine 01/28/2025 5:11 AM CDT POCT GLUCOSE - DOCKED DEVICE Routine 01/28/2025 3:05 AM CDT POCT GLUCOSE - DOCKED DEVICE Routine 01/28/2025 2:15 AM CDT POCT GLUCOSE - DOCKED DEVICE Routine 01/28/2025 1:04 AM CDT POCT GLUCOSE - DOCKED DEVICE Routine 01/27/2025 11:58 PM CDT POCT GLUCOSE - DOCKED DEVICE Routine 01/27/2025 10:44 PM CDT POCT GLUCOSE - DOCKED DEVICE Routine 01/27/2025 9:32 PM CDT POCT EG7 BLD GAS ARTERIAL TEMP FAITH Routine 01/27/2025 8:34 PM CDT POCT GLUCOSE - DOCKED DEVICE Routine 01/27/2025 8:32 PM CDT POCT ACUTE ARTERIAL PANEL Routine 01/27/2025 7:17 PM CDT POCT GLUCOSE - DOCKED DEVICE Routine 01/27/2025 6:57 PM CDT POCT ACUTE ARTERIAL PANEL Routine 01/27/2025 6:11 PM CDT POCT GLUCOSE - DOCKED DEVICE Routine 01/27/2025 6:09 PM CDT XR CHEST PORTABLE STAT 01/27/2025 5:09 PM CDT ECG 12-LEAD Routine 01/27/2025 4:51 PM CDT POCT ACUTE ARTERIAL PANEL Routine 01/27/2025 4:43 PM CDT HC CALCIUM IONIZED STAT 01/27/2025 4:42 PM CDT HC MAGNESIUM STAT 01/27/2025 4:42 PM CDT POCT GLUCOSE - DOCKED DEVICE Routine 01/27/2025 4:41 PM CDT USE TRANSESOPHAGEAL ECHO Today 025 4:16 PM CDT POCT ACUTE ARTERIAL PANEL Routine 01/27/2025 3:32 PM CDT SOP AUTH FOR DEVIATION TIMED 3:30 PM CDT POCT GLUCOSE - DOCKED DEVICE Routine 01/27/2025 3:29 PM CDT TRANSFUSE PLATELET PHERESIS Routine 01/27/2025 3:28 PM CDT ORDER PLATELET PHERESIS Routine 01/28/20 3:11 PM CDT POCT ACUTE ARTERIAL PANEL Routine 01/27/2025 3:10 PM CDT POCT GLUCOSE - DOCKED DEVICE Routine 01/27/2025 3:08 PM CDT POCT ACUTE ARTERIAL PANEL Routine 01/27/2025 2:43 PM CDT POCT GLUCOSE - DOCKED DEVICE Routine 01/27/2025 2:41 PM CDT POCT ACUTE VENOUS PANEL Routine 01/28/20 2:27 PM CDT POCT GLUCOSE - DOCKED DEVICE Routine 01/27/2025 2:26 PM CDT POCT ACUTE ARTERIAL PANEL Routine 01/27/2025 2:21 PM CDT POCT GLUCOSE - DOCKED DEVICE Routine 01/27/2025 2:18 PM CDT POCT ACUTE ARTERIAL PANEL Routine 01/27/2025 2:11 PM CDT POCT ACUTE ARTERIAL PANEL Routine 01/27/2025 1:58 PM CDT POCT GLUCOSE - DOCKED DEVICE Routine 01/27/2025 1:55 PM CDT ANE IRENE Routine 01/27/2025 12:12 PM CDT POCT ACUTE ARTERIAL PANEL Routine 01/27/2025 12:03 PM CDT POCT GLUCOSE - DOCKED DEVICE Routine 01/27/2025 12:01 PM CDT INTRODUCER Routine 01/27/2025 11:12 AM CDT ART LINE PLACEMENT Routine 01/27/2025 10:57 AM CDT THROMBOENDARTECTMY NECK,NECK INCIS 01/27/2025 10:31 AM CDT CAD Case Notes PATIENT IN ROOM 546TF [facility] case REPLACE AORT VALV,PROSTH VALV 01/27/2025 10:31 AM CDT CAD Case Notes PATIENT IN ROOM 546TF [facility] case HC PHOSPHORUS Routine 01/27/2025 3:05 AM CDT HC COMPREHENSIVE METABOL PANEL Routine 01/27/2025 3:05 AM CDT HC MAGNESIUM Routine 01/27/2025 3:05 AM CDT HC CBC W/O DIFF Routine 01/27/2025 3:05 AM CDT HC PROTHROMBIN TIME (PT) Routine 025 3:05 AM CDT PATHOLOGY Routine 01/27/2025 12:00 AM CDT TYPE & SCREEN Routine 01/26/2025 1:58 PM CDT P2Y12 FUNCTION STAT 01/26/2025 6:18 AM CDT HC BASIC METABOLIC PANEL Routine 025 5:48 AM CDT HC CBC W/O DIFF Routine 01/26/2025 5:48 AM CDT HEPARIN, ANTI XA, UFH TIMED 01/26/2025 5:48 AM CDT HC PROTHROMBIN TIME (PT) Routine 025 5:48 AM CDT HEPARIN, ANTI XA, UFH TIMED 01/25/2025 5:12 AM CDT HC CBC W/O DIFF Routine 01/25/2025 5:12 AM CDT HC BASIC METABOLIC PANEL Routine 025 5:12 AM CDT HC PROTHROMBIN TIME (PT) Routine 025 5:12 AM CDT HC GLYCOSYLATED HGB STAT 01/22/2025 11:24 AM CDT from Last 3 Months or Most Recently Relevant to Health Maintenance Results * LIPID PANEL (04/06/2025) CHOLESTEROL 161 TRIGLYCERIDES 229 HDL 46 LDL (CALCULATED) 69 Narrative Resulting Agency Comment [facility] Default History Genericprovider LABORATORY Final Result * CBC, MANUAL DIFF (04/06/2025) WBC 3.7 HGB 12.1 HCT 35.4 PLT 163 BLOOD VENOUS BLOOD SPECIMEN / Unknown Narrative Resulting Agency Comment [facility] Default History Genericprovider LABORATORY Final Result * XR CHEST PA+LAT (02/28/2025 11:34 AM CDT) Only the most recent of4 resultswithin the time period is included. Anatomical Region Laterality Modality Chest Radiographic Sharmaine ging 02/28/2025 1:09 PM CDT Impressions 02/28/2025 4:21 PM CDT IMPRESSION: 1. Interval resolution of right basilar pleural effusion. Persistent trivial left pleural effusion. The attending radiologist has reviewed the image(s) and agrees with the content of this report. Ordered By: LISA VEGA Interpreted By: Bakari Choi MD, 02/28/2025 1:09 PM Narrative 02/28/2025 4:21 PM CDT [address] [address] PROCEDURE: XR CHEST PA+LAT. 02/28/2025 11:32 AM. TECHNIQUE: 2 views (PA and Lateral) of the chest were performed. HISTORY: S/P CABG COMPARISON: PA plus lateral 02/01/2025 FINDINGS: Support Devices: Median sternotomy wires. CABG. Mediastinal clips. Coronary stent. Cervical plate and screws. Chest Wall/Diaphragm/Upper Abdomen: Thoracic spondylosis. Cardiac Silhouette/Mediastinum/Dinah: The cardiac, mediastinal, and hilar contours are unchanged. Lungs/Pleural Spaces: Interval resolution of prior right basilar pleural effusions. Trivial left pleural effusion best seen on lateral view. Procedure Note Russ Duvall MD - 02/28/[address] [address] PROCEDURE: XR CHEST PA+LAT. 02/28/2025 11:32 AM. TECHNIQUE: 2 views (PA and Lateral) of the chest were performed. HISTORY: S/P CABG COMPARISON: PA plus lateral 02/01/2025 FINDINGS: Support Devices: Median sternotomy wires. CABG. Mediastinal clips.Coronary stent. Cervical plate and screws. Chest Wall/Diaphragm/Upper Abdomen: Thoracic spondylosis. Cardiac Silhouette/Mediastinum/Dinah: The cardiac, mediastinal, and hilarcontours are unchanged. Lungs/Pleural Spaces: Interval resolution of prior right basilar pleuraleffusions. Trivial left pleural effusion best seen on lateral view. IMPRESSION: 1. Interval resolution of right basilar pleural effusion. Persistenttrivial left pleural effusion. The attending radiologist has reviewed the image(s) and agrees with thecontent of this report. Ordered By: LISA VEGA Interpreted By: Bakari Choi MD, 02/28/2025 1:09 PM us Lisa Vega MD GENERAL IMAGING Final Resul t * ELECTROCARDIOGRAM (NON MIDMARK ACQUIRED) (02/11/2025 10:49 AM CDT) 02/11/2025 10:4 9 AM CDT Narrative [facility] - 02/11/2025 6:05 PM CDT [facility] [address] [place] [address] Test Date: 2025-02-11 Pat Name: FREDY CALERO Department: 105 Room: Gender: Male Compliance Advisor: : 1945 Requested By: KARLOS CHO Order Number: [id number] Reading MD: Karlos Cho Measurements Intervals [place] Rate: 59 P: 65 GA: 129 QRS: -20 QRSD: 125 T: 108 QT: 429 QTc: 427 Interpretive Statements SINUS BRADYCARDIA INFERIOR MYOCARDIAL INFARCTION, 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, OF INDETERMINATE AGE Procedure Note Karlos Cho MD - 02/11/2025 [facility] [address] [place] [address] Test Date: 2025-02-11 Pat Name: FREDY CALERO Department: 105 Room: Gender: Male Compliance Advisor: : 1945 Requested By: KARLOS CHO Order Number: [id number] Reading MD: Karlos Cho Measurements Intervals [place] Rate: 59 P: 65 GA: 129 QRS: -20 QRSD: 125 T: 108 QT: 429 QTc: 427 Interpretive Statements SINUS BRADYCARDIA INFERIOR MYOCARDIAL INFARCTION, 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, OF INDETERMINATE AGE us Karlos Cho MD PROCEDURES-ORDERABLE NO CHARGE F inal Result Performing Organization Address City/[facility] Co de Phone Number [facility] * (ABNORMAL) POCT glucose (02/01/2025 5:46 AM CDT) Only the most recent of36 resultswithin the time period is included. [facility] GLUCOSE POC 126(H) 70 - 109 02/01/2025 5:54 AM CDT [facility] 02/01/2025 5:46 AM CDT us Lisa Vega MD POCT ORDERABLES - DEVICE Fi nal Result Performing Organization Address [facility] de Phone Number [facility] [address] [place] [address], [id number] * PROTIME/INR, VENOUS (02/01/2025 3:23 AM CDT) Only the most recent of8 resultswithin the time period is included. [facility] PROTIME 11.5 9.4 - 12.5 SEC 02/01/2025 4:34 AM CDT [facility] INR 1.0 0.8 - 1.1 02/01/2025 4:34 AM CDT [facility] 02/01/2025 3:2 3 AM CDT us Lisa Vega MD LABORATORY Final Resul t Performing Organization Address [facility] de Phone Number [facility] [address] [place] [address], [phone] * (ABNORMAL) COMPREHENSIVE METABOLIC PANEL (02/01/2025 3:23 AM CDT) Only the most recent of6 resultswithin the time period is included. SODIUM S/P/B 135(L) 136 - 145 MMOL/L 02/01/2025 4:22 AM CDT [facility] POTASSIUM S/P/B 4.4 3.5 - 5.1 MMOL/L 02/01/2025 4:22 AM CDT [facility] CHLORIDE S/P/B 105 97 - 115 MMOL/L 02/01/2025 4:22 AM CDT [facility] CO2 26.5 21.0 - 32.0 MMOL/L 02/01/2025 4:22 AM CDT [facility] GLUCOSE 116(H) 74 - 106 MG/DL 02/01/2025 4:22 AM T [facility] BUN 20(H) 7 - 18 MG/DL 02/01/2025 4:22 AM T [facility] CREATININE S/P/B 1.21 0.70 - 1.30 MG/DL 02/01/2025 4:22 AM CDT [facility] CALCIUM S/P/B 8.6 8.5 - 10.1 MG/DL 02/01/2025 4:22 AM CDT [facility] BILIRUBIN TOTAL S/P/B 0.7 0.2 - 1.0 MG/DL 02/01/2025 4:22 AM T [facility] ALKALINE PHOSPHATASE S/P/B 69 45 - 115 U/L 02/01/2025 4:22 AM CDT [facility] AST 39(H) 15 - 37 U/L 02/01/2025 4:22 AM CDT [facility] ALT 30 16 - 61 U/L 02/01/2025 4:22 AM CDT [facility] TOTAL PROTEIN S/P/B 5.7(L) 6.4 - 8.2 G/DL 02/01/2025 4:22 AM CDT [facility] ALBUMIN S/P/B 2.9(L) 3.4 - 5.0 G/DL 02/01/2025 4:22 AM CDT [facility] ANION GAP 3.5 2.0 - 10.0 MMOL/L 02/01/2025 4:22 AM CDT [facility] OSMOLALITY (CALC) 284 MOSM/KG 025 4:22 AM CDT [facility] Comment:REFERENCE RANGE NOT ESTABLISHED GFR ESTIMATE 61(L) >90 ML/MIN/1. 73 M2 02/01/2025 4:22 AM CDT [facility] GFR NOTES GFR REFERENCE S: 02/01/2025 4:22 AM CDT [facility] Comment: THE ESTIMATED GFR IS [...] ml/min/1.73 m2 G5,KIDNEY FAILURE: <15 ml/min/1.73 m2 02/01/2025 3:23 AM CDT us Amalia Pablo PA-C LABORATORY Final Resul t [facility] [address] [place] [id number], [id number] * (ABNORMAL) CBC W/DIFF AUTOMATED (02/01/2025 3:23 AM CDT) Only the most recent of5 resultswithin the time period is included. WBC 3.91(L) 4.00 - 10.80 x10'3/uL 02/01/2025 3:51 AM CDT [facility] RBC 2.49(L) 4.50 - 6.10 x10'6/uL 02/01/2025 3:51 AM CDT [facility] HGB 8.1(L) 13.0 - 18.0 G/DL 02/01/2025 3:51 AM CDT [facility] HCT 23.7(L) 37.0 - 52.0 % 02/01/2025 3:51 AM CDT [facility] MCV 95.2 78.0 - 100.0 FL 02/01/2025 3:51 AM CDT [facility] MCH 32.5(H) 27.0 - 31.0 PG 02/01/2025 3:51 AM CDT [facility] MCHC 34.2 33.0 - 36.0 G/DL 02/01/2025 3:51 AM CDT [facility] RDW 13.0 11.5 - 14.5 % 02/01/2025 3:51 AM CDT [facility] PLT 135(L) 150 - 350 x10'3/uL 02/01/2025 3:51 AM CDT [facility] MPV 9.6 7.4 - 10.4 FL 02/01/2025 3:51 AM CDT [facility] DIFFERENTIAL TYPE AUTOMATED DIFFERENTIAL 02/01/2025 3:51 AM CDT [facility] SEG NEUTROPHILS 55.7 % 3:51 AM CDT [facility] LYMPHOCYTES 24.8 % 02/01/2025 3:51 AM CDT [facility] MONOCYTES 13.6 % 02/01/2025 3:51 AM CDT [facility] EOSINOPHILS 4.1 % 02/01/2025 3:51 AM CDT [facility] BASOPHILS 0.5 % 02/01/2025 3:51 AM CDT [facility] IMMATURE GRANS % 1.3 % 02/02/20 3:51 AM CDT [facility] ABS. NEUTROPHILS 2.18 1.60 - 8.30 x10'3/uL 02/01/2025 3:51 AM CDT [facility] ABS. LYMPHOCYTES 0.97 0.80 - 4.70 x10'3/uL 02/01/2025 3:51 AM CDT [facility] ABS. MONOCYTES 0.53 0.00 - 1.50 x10'3/uL 02/01/2025 3:51 AM CDT [facility] ABS. EOSINOPHILS 0.16 0.00 - 0.40 x10'3/uL 02/01/2025 3:51 AM CDT [facility] ABS. BASOPHILS 0.02 0.00 - 0.20 x10'3/uL 02/01/2025 3:51 AM CDT [facility] ABS. IMMATURE GRANULOCYTES 0.05(H) 0.00 - 0.03 x10'3/uL 02/01/2025 3:51 AM CDT [facility] ABS. NUCLEATED RBC'S 0.00 0.00 - 0.01 x10'3/uL 02/01/2025 3:51 AM CDT [facility] NRBC % 0.0 % 02/01/2025 3:51 AM CDT [facility] 02/01/2025 3:23 AM CDT Amalia Pablo PA-C LABORATORY Final Resul t [facility] [address] [place] [address], [id number] * MAGNESIUM (02/01/2025 3:23 AM CDT) Only the most recent of7 resultswithin the time period is included. MAGNESIUM 2.4 1.6 - 2.6 MG/DL 02/01/2025 4:22 AM CDT [facility] 02/01/2025 3:23 AM CDT us Linh Wong NP LABORATORY Final Result [facility] [address] [place] [address], [id number] * (ABNORMAL) CBC, AUTO, NO DIFF (01/30/2025 10:48 AM CDT) Only the most recent of4 resultswithin the time period is included. WBC 5.30 4.00 - 10.80 x10'3/uL 01/30/2025 10:58 AM CDT [facility] RBC 2.66(L) 4.50 - 6.10 x10'6/uL 01/30/2025 10:58 AM CDT [facility] HGB 8.9(L) 13.0 - 18.0 G/DL 01/30/2025 10:58 AM CDT [facility] HCT 25.3(L) 37.0 - 52.0 % 01/30/2025 10:58 AM CDT [facility] MCV 95.1 78.0 - 100.0 FL 01/30/2025 10:58 AM CDT [facility] MCH 33.5(H) 27.0 - 31.0 PG 01/30/2025 10:58 AM CDT [facility] MCHC 35.2 33.0 - 36.0 G/DL 01/30/2025 10:58 AM CDT [facility] RDW 12.7 11.5 - 14.5 % 01/30/2025 10:58 AM CDT [facility] PLT SEE NOTE 150 - 350 x10'3/uL 01/30/2025 11:38 AM CDT [facility] Comment: Platelet clumps present. Estimate from slide appears to be between 100,000 to 150,000. Reorder Platelet Count if actual value is clinically significant. 01/30/2025 10:4 8 AM CDT Lisa Vega MD LABORATORY Final Resul t [facility] [address] [place] [address], [id number] * ECG 12 lead (01/29/2025 8:16 AM CDT) Only the most recent of3 resultswithin the time period is included. 01/29/2025 8:16 AM CDT Narrative [facility] - 01/29/2025 8:47 AM CDT [facility] [address] [place] [address] Test Date: 2025-01-29 Pat Name: FREDY CALERO Department: 1 Room: [place] [address] Gender: Male Compliance Advisor: As : 1945 Requested By: LISA VEGA Order Number: [id number] Reading MD: Karlos Cho Measurements Intervals [place] Rate: 70 P: 52 GA: 168 QRS: 36 QRSD: 123 T: 205 QT: 402 QTc: 437 Interpretive Statements SINUS RHYTHM POSSIBLE RIGHT VENTRICULAR CONDUCTION DELAY [RSR (QR) IN V1/V2] INFERIOR MYOCARDIAL INFARCTION , OF INDETERMINATE AGE [40+ ms Q WAVE AND/OR ST/T ABNORMALITY IN II/aVF] ANTEROLATERAL MYOCARDIAL INFARCTION , OF INDETERMINATE AGE [40+ ms Q WAVE IN I/aVL/V3-V6] Procedure Note Karlos Cho MD - 01/29/2025 [facility] [address] [place] [address] Test Date: 2025-01-29 Pat Name: FREDY CALERO Department: 1 Room: [place] [address] Gender: Male Compliance Advisor: As : 1945 Requested By: LISA VEGA Order Number: [id number] Reading MD: Karlos Cho Measurements Intervals [place] Rate: 70 P: 52 GA: 168 QRS: 36 QRSD: 123 T: 205 QT: 402 QTc: 437 Interpretive Statements SINUS RHYTHM POSSIBLE RIGHT VENTRICULAR CONDUCTION DELAY [RSR (QR) IN V1/V2] INFERIOR MYOCARDIAL INFARCTION , OF INDETERMINATE AGE [40+ ms Q WAVEAND/OR ST/T ABNORMALITY IN II/aVF] ANTEROLATERAL MYOCARDIAL INFARCTION , OF INDETERMINATE AGE [40+ ms Q WAVEIN I/aVL/V3-V6] Lisa Vega MD ECG ORDERABLES Final Resul t [facility] * XR CHEST PORTABLE (01/29/2025 5:56 AM CDT) Only the most recent of3 resultswithin the time period is included. Anatomical Region Laterality Modality Chest Radiographic Sharmaine ging 01/29/2025 6:45 AM CDT Impressions 01/29/2025 6:46 AM CDT IMPRESSION: Cardiomegaly and vascular congestion. Small pleural effusions with associated atelectasis or infiltrate. Referred By: Interpreted By: Burke Snyder MD, 01/29/2025 6:45 AM Narrative 01/29/2025 6:46 AM CDT [address] [address] Examination: XR CHEST PORTABLE Exam time: 01/29/2025 5:24 AM Indication: Postoperative Comparison: Chest 01/28/2025 Findings: Upright AP view of the chest was obtained. Poststernotomy changes. Unchanged left central line as described in the previous report. Cardiomegaly. Stable left chest tube. Mild vascular congestion. There are small pleural effusions with associated atelectasis or infiltrate. No pneumothorax. Procedure Note Burke Snyder MD - 01/29/2025 [facility] [address] [place], [place] [address] Examination: XR CHEST PORTABLE Exam time: 01/29/2025 5:24 AM Indication: Postoperative Comparison: Chest 01/28/2025 Findings: Upright AP view of the chest was obtained. Poststernotomychanges. Unchanged left central line as described in the previous report.Cardiomegaly. Stable left chest tube. Mild vascular congestion. Thereare small pleural effusions with associated atelectasis or infiltrate. Nopneumothorax. IMPRESSION: Cardiomegaly and vascular congestion. Small pleural effusionswith associated atelectasis or infiltrate. Referred By: Interpreted By: Burke Snyder MD, 01/29/2025 6:45 AM us Lisa Vega MD GENERAL IMAGING Final Resul t * (ABNORMAL) BASIC METABOLIC PANEL (01/28/2025 6:33 PM CDT) Only the most recent of3 resultswithin the time period is included. SODIUM S/P/B 135(L) 136 - 145 MMOL/L 01/28/2025 7:09 PM CDT [facility] POTASSIUM S/P/B 3.7 3.5 - 5.1 MMOL/L 01/28/2025 7:09 PM CDT [facility] CHLORIDE S/P/B 104 97 - 115 MMOL/L 01/28/2025 7:09 PM CDT [facility] CO2 23.1 21.0 - 32.0 MMOL/L 01/28/2025 7:09 PM CDT [facility] GLUCOSE 183(H) 74 - 106 MG/DL 01/28/2025 7:09 PM CDT [facility] BUN 17 7 - 18 MG/DL 01/28/2025 7:09 PM CDT [facility] CREATININE S/P/B 1.65(H) 0.70 - 1.30 MG/DL 01/28/2025 7:09 PM CDT [facility] CALCIUM S/P/B 8.5 8.5 - 10.1 MG/DL 01/28/2025 7:09 PM CDT [facility] ANION GAP 7.9 2.0 - 10.0 MMOL/L 01/28/2025 7:09 PM CDT [facility] OSMOLALITY (CALC) 286 MOSM/KG 025 7:09 PM CDT [facility] Comment:REFERENCE RANGE NOT ESTABLISHED GFR ESTIMATE 42(L) >90 ML/MIN/1. 73 M2 01/28/2025 7:09 PM CDT [facility] GFR NOTES GFR REFERENCE S: 01/28/2025 7:09 PM CDT [facility] Comment: THE ESTIMATED GFR IS [...] ml/min/1.73 m2 G5,KIDNEY FAILURE: <15 ml/min/1.73 m2 01/28/2025 6:33 PM CDT Vonda Montesinos COMMERCIAL DEVELOPMENT MANAGER LABORATORY Final Result [facility] [address] [place] [address], [id number] * (ABNORMAL) POCT ACUTE ARTERIAL PANEL (01/28/2025 2:52 PM CDT) Only the most recent of12 resultswithin the time period is included. SODIUM WHOLE BLOOD 137(L) 138 - 146 mmol/L 01/28/2025 2:55 PM CDT [facility] POTASSIUM WHOLE BLOOD 3.7 3.5 - 4.9 mmol/L 01/28/2025 2:55 PM CDT [facility] CA IONIZED WH BLOOD 1.16 1.12 - 1.32 mmol/L 01/28/2025 2:55 PM CDT [facility] POC PH ARTERIAL 7.438 7.35 - 7.45 01/28/2025 2:55 PM CDT [facility] POC PCO2 ARTERIAL 29.4(L) 35.0 - 45.0 MMHG 01/28/2025 2:55 PM CDT [facility] POC PO2 ARTERIAL 54(L) 80 - 105 MMHG 01/28/2025 2:55 PM CDT [facility] POC HCO3 ARTERIAL 19.9(L) 22 - 26 MMOL/L 01/28/2025 2:55 PM CDT [facility] POC TCO2 ARTERIAL 21(L) 23 - 27 MMOL/L 01/28/2025 2:55 PM CDT [facility] POC BASE DEFICIT ARTERIAL 4(H) 0 - 2 MMOL/L 01/28/2025 2:55 PM CDT [facility] POC HEMATOCRIT 27(L) 38 - 51 % 01/28/2025 2:55 PM CDT [facility] TIME TEST WAS PERFORMED: 1452 01/28/2025 2:55 PM CDT [facility] 01/28/2025 2:52 PM CDT Lisa Vega MD POCT ORDERABLES - DEVICE Fi nal Result [facility] [address] [place] [address], [id number] * (ABNORMAL) HEMOGLOBIN AND HEMATOCRIT (01/28/2025 12:20 PM CDT) HGB 9.7(L) 13.0 - 18.0 G/DL 01/28/2025 12:39 PM CDT [facility] HCT 26.6(L) 37.0 - 52.0 % 01/28/2025 12:39 PM CDT [facility] 01/28/2025 12:2 0 PM CDT Vonda Montesinos APRN LABORATORY Final Result [facility] [address] [place] [address], [phone] * (ABNORMAL) POCT EG7 BLD GAS ARTERIAL TEMP FAITH (01/27/2025 8:34 PM CDT) SODIUM WHOLE BLOOD 139 138 - 146 mmol/L 01/27/2025 8:36 PM CDT [facility] POTASSIUM WHOLE BLOOD 4.5 3.5 - 4.9 mmol/L 01/27/2025 8:36 PM CDT [facility] CA IONIZED WH BLOOD 1.20 1.12 - 1.32 mmol/L 01/27/2025 8:36 PM CDT [facility] POC PH ARTERIAL 7.353 7.35 - 7.45 01/27/2025 8:36 PM CDT [facility] POC PCO2 ARTERIAL 41.1 35.0 - 45.0 MMHG 01/27/2025 8:36 PM CDT [facility] POC PO2 ARTERIAL 83 80 - 105 MMHG 01/27/2025 8:36 PM CDT [facility] POC HCO3 ARTERIAL 22.9 22 - 26 MMOL/L 01/27/2025 8:36 PM CDT [facility] POC TCO2 ARTERIAL 24 23 - 27 MMOL/L 01/27/2025 8:36 PM CDT [facility] POC BASE DEFICIT ARTERIAL 3(H) 0 - 2 MMOL/L 01/27/2025 8:36 PM CDT [facility] TEMPERATURE 36.3 01/27/2025 8:36 PM CDT [facility] POC PH TEMP CORRECTED ARTERIAL 7.363 7.35 - 7.45 01/27/2025 8:36 PM CDT [facility] POC PCO2 TEMP FAITH ARTERIAL 39.8 35.0 - 45.0 MMHG 01/27/2025 8:36 PM CDT [facility] POC PO2 TEMP FAITH ARTERIAL 79(L) 80 - 105 MMHG 01/27/2025 8:36 PM CDT [facility] POC HEMATOCRIT 26(L) 38 - 51 % 01/27/2025 8:36 PM CDT [facility] TIME TEST WAS PERFORMED: 203301/27/2025 8:36 PM CDT [facility] 01/27/2025 8:34 PM CDT us Lisa Vega MD POINT OF CARE TEST ORDERABL ES Final Result Performing Organization Address [facility] de Phone Number [facility] [address] [place] [address], [id number] * CALCIUM, IONIZED (01/27/2025 4:42 PM CDT) CALCIUM IONIZED 1.21 1.15 - 1.33 MMOL/L 01/27/2025 4:50 PM CDT [facility] 01/27/2025 4:42 PM CDT us Lisa Vega MD LABORATORY Final Resul t Performing Organization Address [facility] de Phone Number [facility] [address] [place] [address], [phone] * USE TRANSESOPHAGEAL ECHO (01/27/2025 4:16 PM CDT) Anatomical Region Laterality Modality Cardiac Echocardiogram 01/27/2025 11:4 2 AM CDT Narrative 01/28/2025 9:32 AM CDT Transesophageal Echocardiography Report Pat.Name: FREDY CALERO Pat.ID: [id number] .Date: 01/27/2025 Refer.MD: LISA VEGA Exam Time: 11:42:00 AM Study Type:TRANSESOPHAGEAL ECHO (IRENE) Age: 12 1945,79Y Sex: M Pat. Stat.:Inpatient CPT - 4: 43055 [id number] Reason for Study:avr Procedures: 2D, M-mode, Doppler, Color Flow, Portable, Intraoperative, Transesophageal Race: W ++++++++++++++++++++++++++++++++++++ SUMMARY: ++++++++++++++++++++++++++++++++++++ Procedure Performed: IRENE Comprehensive Date/Time: 01/27/2025 12:12 PM Preanesthesia Checklist: Patient identified, IV assessed, risks and benefits discussed, monitors and equipment assessed, procedure being performed at surgeon's request and procedural consent obtained. General Procedure Information Diagnostic Indications for Echo: assessment of surgical repair and hemodynamic monitoring Physician Requesting Echo: Lisa Vega MD Location performed: OR Intubated Bite block not placed Heart visualized Probe Insertion: Easy Probe Type: Multiplane Modalities: 2D only, color flow mapping, continuous wave Doppler and pulse wave Doppler Echocardiographic and Doppler Measurements Ventricles Right Ventricle: Cavity size normal. Hypertrophy not present. Thrombus not present. Global function normal. Left Ventricle: Cavity size normal. Hypertrophy present. Thrombus not present. Global Function normal. Ejection Fraction 60%. Ventricular Regional Function: 1- Basal Anteroseptal: normal 2- Basal Anterior: normal 3- Basal Anterolateral: normal 4- Basal Inferolateral: normal 5- Basal Inferior: normal 6- Basal Inferoseptal: normal Valves Aortic Valve: Annulus normal. Stenosis not present. Leaflets normal. Leaflet motions normal. Mitral Valve: Annulus normal. Stenosis not present. Leaflets normal. Leaflet motions normal. Tricuspid Valve: Annulus normal. Stenosis not present. Leaflets normal. Leaflet motions normal. Aorta Ascending Aorta: Size normal. Dissection not present. Mobile plaque not present. Aortic Arch: Size normal. Dissection not present. Mobile plaque not present. Descending Aorta: Size normal. Dissection not present. Mobile plaque not present. Atria Right Atrium: Size normal. Spontaneous echo contrast not present. Thrombus not present. Tumor not present. Device not present. Left Atrium: Size normal. Spontaneous echo contrast not present. Thrombus not present. Tumor not present. Device not present. Left atrial appendage normal. Septa Atrial Septum: Intra-atrial septal morphology lipomatous hypertrophy. Other Findings Pericardium: normal Pleural Effusion: none CPT Code: 32388 - IRENE with 2-D, M-mode, probe placement, image acquisition, interpretation and report, 29353 - Doppler echo, pulsed wave and/or spectral display and 01066 - Doppler echo, color flow velocity mapping Note: Prebypass: LV hypertrophy with normal LV function EF 55-60%. RV function normal. Mild MR. Aortic valve is trileaflet with mild central AI. Tricuspid valve normal in appearance with no significant TR. Interatrial septum with lipomatous hypertrophy but no PFO by color flow doppler. Aortic root, arch and visualized portion of descending aorta without any aneurysm or dissection. Postbypass: Hyperdynamic LV and RV. Mild AI as previously noted. Anesthesia Information Performed Personally Anesthesiologist: Ki Dukes MD ++++++++++++++++++++++++++++++++++++ FINDINGS: ++++++++++++++++++++++++++++++++++++ IRENE: The patient was counseled and an informed consent was obtained. The transesophageal probe was passed by anesthesia. Patient was under general anesthesia. Procedure was performed in the OR with anesthesia personnel present. ++++++++++++++++++++++++++++++++++++ IRENE: ++++++++++++++++++++++++++++++++++++ Comments: IRENE 52 ++++++++++++++++++++++++++++++++++++ MEASUREMENTS: ++++++++++++++++++++++++++++++++++++ DOPPLER AV Forward Flow AV TVI 28.1 cm AV mnPG 2 mmHg AV pkVel 120 cm/s (100-170) AV pkPG 6 mmHg AV mnVel 61.1 cm/s <Electronic Signature> 01/28/2025 09:32 AM Ki Dukes M.D. Procedure Note Ki Dukes MD - 01/28/2025 Transesophageal Echocardiography Report Pat.Name: FREDY CALERO Pat.ID: [id number] .Date: 01/27/2025 Refer.MD: LISA VEGA Exam Time: 11:42:00 AM Study Type:TRANSESOPHAGEAL ECHO (IRENE) Age: 12 1945,79Y Sex: M Pat. Stat.:Inpatient CPT - 4: 68427 [id number] Reason for Study:avr Procedures: 2D, M-mode, Doppler, Color Flow, Portable, Intraoperative, Transesophageal Race: W ++++++++++++++++++++++++++++++++++++ SUMMARY: ++++++++++++++++++++++++++++++++++++ Procedure Performed: IRENE Comprehensive Date/Time: 01/27/2025 12:12 PM Preanesthesia Checklist: Patient identified, IV assessed, risks and benefits discussed, monitors and equipment assessed, procedure being performed at surgeon's request and procedural consent obtained. General Procedure Information Diagnostic Indications for Echo: assessment of surgical repair and hemodynamic monitoring Physician Requesting Echo: Lisa Vega MD Location performed: OR Intubated Bite block not placed Heart visualized Probe Insertion: Easy Probe Type: Multiplane Modalities: 2D only, color flow mapping, continuous wave Doppler and pulse wave Doppler Echocardiographic and Doppler Measurements Ventricles Right Ventricle: Cavity size normal. Hypertrophy not present. Thrombus not present. Global function normal. Left Ventricle: Cavity size normal. Hypertrophy present. Thrombus not present. Global Function normal. Ejection Fraction 60%. Ventricular Regional Function: 1- Basal Anteroseptal: normal 2- Basal Anterior: normal 3- Basal Anterolateral: normal 4- Basal Inferolateral: normal 5- Basal Inferior: normal 6- Basal Inferoseptal: normal Valves Aortic Valve: Annulus normal. Stenosis not present. Leaflets normal. Leaflet motions normal. Mitral Valve: Annulus normal. Stenosis not present. Leaflets normal. Leaflet motions normal. Tricuspid Valve: Annulus normal. Stenosis not present. Leaflets normal. Leaflet motions normal. Aorta Ascending Aorta: Size normal. Dissection not present. Mobile plaque not present. Aortic Arch: Size normal. Dissection not present. Mobile plaque not present. Descending Aorta: Size normal. Dissection not present. Mobile plaque not present. Atria Right Atrium: Size normal. Spontaneous echo contrast not present. Thrombus not present. Tumor not present. Device not present. Left Atrium: Size normal. Spontaneous echo contrast not present. Thrombus not present. Tumor not present. Device not present. Left atrial appendage normal. Septa Atrial Septum: Intra-atrial septal morphology lipomatous hypertrophy. Other Findings Pericardium: normal Pleural Effusion: none CPT Code: 72226 - IRENE with 2-D, M-mode, probe placement, image acquisition, interpretation and report, 68150 - Doppler echo, pulsed wave and/or spectral display and 70196 - Doppler echo, color flow velocity mapping Note: Prebypass: LV hypertrophy with normal LV function EF 55-60%. RV function normal. Mild MR. Aortic valve is trileaflet with mild central AI. Tricuspid valve normal in appearance with no significant TR. Interatrial septum with lipomatous hypertrophy but no PFO by color flow doppler. Aortic root, arch and visualized portion of descending aorta without any aneurysm or dissection. Postbypass: Hyperdynamic LV and RV. Mild AI as previously noted. Anesthesia Information Performed Personally Anesthesiologist: Ki Dukes MD ++++++++++++++++++++++++++++++++++++ FINDINGS: ++++++++++++++++++++++++++++++++++++ IRENE: The patient was counseled and an informed consent was obtained. The transesophageal probe was passed by anesthesia. Patient was under general anesthesia. Procedure was performed in the OR with anesthesia personnel present. ++++++++++++++++++++++++++++++++++++ IRENE: ++++++++++++++++++++++++++++++++++++ Comments: IRENE 52 ++++++++++++++++++++++++++++++++++++ MEASUREMENTS: ++++++++++++++++++++++++++++++++++++ DOPPLER AV Forward Flow AV TVI 28.1 cm AV mnPG 2 mmHg AV pkVel 120 cm/s (100-170) AV pkPG 6 mmHg AV mnVel 61.1 cm/s <Electronic Signature> 01/28/2025 09:32 AM Ki Dukes M.D. Lisa Vega MD ECHO Final Resul t * TRANSFUSE PLATELET PHERESIS (01/27/2025 3:38 PM CDT) Lisa Vega MD NURSING TREATMENT ORDERABLE S - BLOOD ADMIN Edited Result - Final * SOP AUTH FOR DEVIATION (01/27/2025 3:30 PM CDT) INTERPRETATION DUE TO LACK OF PLATELETS AVAILABLE IN INVENTORY, PLATELETS WITH ABO TYPE INCOMPATIBLE PLASMA WERE TRANSFUSED RATHER THAN PLATELETS WITH ABO TYPE COMPATIBLE PLASMA. SUGGEST OBTAINING DAILY H&H THE TRANSFUSION OF ABO TYPE INCOMPATIBLE PLASMA CAN CAUSE A MINOR DEGREE OF INTRAVASCULAR HEMOLYSIS. FOR FURTHER INFORMATION OR A CONSULTATION CONTACT THE TRANSFUSION SERVICE PHYSICIAN. 02/01/2025 9:51 PM CDT [facility] Comment: THIS TEST WAS INTERPRETED BY DR. DALLIN DANG MD 01/27/2025 3:30 PM CDT Dallin Dang MD LABORATORY Final Result [facility] [address] [place] [address], [id number] * ORDER PLATELET PHERESIS, 1 Units (01/27/2025 3:11 PM CDT) UNITS ORDERED 1 01/27/2025 3:11 PM CDT [facility] BLOOD UNIT NUMBER [id number] 01/27/2025 3:15 PM CDT [facility] PRODUCT: PLT PHERESIS LEUKRED 7D BAG 1 01/27/2025 3:15 PM CDT [facility] UNIT DIVISION 00 01/27/2025 3:15 PM CDT [facility] BLOOD UNIT STATUS TRANSFUSED,FINAL 01/28/2025 6:56 AM CDT [facility] ISSUE DATE/TIME [id number] 025 6:56 AM CDT [facility] PRODUCT CODE [id number] 01/28/2025 6:56 AM CDT [facility] ABO/RH Unit A POS 01/28/2025 6:56 AM CDT [facility] ABO/RH UNIT ISBT CODE [id number] 01/28/2025 6:56 AM CDT [facility] BLOOD UNIT EXPIRATION DATE [id number] 01/28/2025 6:56 AM CDT [facility] TRANSFUSION STATUS OK TO TRANSFUSE 01/27/2025 3:15 PM CDT [facility] 01/27/2025 3:11 PM CDT Lisa Vega MD BLOOD BANK PRODUCT ORDERABL ES Final Result [facility] [address] [place] [address], [id number] * (ABNORMAL) POCT ACUTE VENOUS PANEL (01/27/2025 2:27 PM CDT) SODIUM WHOLE BLOOD 134(L) 138 - 146 mmol/L 01/27/2025 4:39 PM CDT [facility] POTASSIUM WHOLE BLOOD 6.3(H) 3.5 - 4.9 mmol/L 01/27/2025 4:39 PM CDT [facility] CA IONIZED WH BLOOD 1.05(L) 1.12 - 1.32 mmol/L 01/27/2025 4:39 PM CDT [facility] POC PH VENOUS 7.308(L) 7.31 - 7.41 01/27/2025 4:39 PM CDT [facility] POC PCO2 VENOUS 49.3 41.0 - 51.0 MMHG 01/27/2025 4:39 PM CDT [facility] POC PO2 VENOUS 50(H) 25 - 40 MMHG 01/27/2025 4:39 PM CDT [facility] POC HCO3 VENOUS 24.8 23 - 28 MMOL/L 01/27/2025 4:39 PM CDT [facility] POC TCO2 VENOUS 26 24 - 29 MMOL/L 01/27/2025 4:39 PM CDT [facility] POC BASE DEFICIT VENOUS 2 0 - 2 MMOL/L 01/27/2025 4:39 PM CDT [facility] POC HEMATOCRIT 21(L) 38 - 51 % 01/27/2025 4:39 PM CDT [facility] TIME TEST WAS PERFORMED: 1427 01/27/2025 4:39 PM CDT [facility] 01/27/2025 2:27 PM CDT Lisa Vega MD POCT ORDERABLES - DEVICE Fi nal Result [facility] [address] [place] [address], [id number] * IRENE Comprehensive (01/27/2025 12:12 PM CDT) Narrative Ki Dukes MD - 01/27/2025 12:12 PM CDT Ki Dukes MD 01/27/2025 3:09 PM Procedure Performed: IRENE Comprehensive Date/Time: 01/27/2025 12:12 PM Preanesthesia Checklist: Patient identified, IV assessed, risks and benefits discussed, monitors and equipment assessed, procedure being performed at surgeon's request and procedural consent obtained. General Procedure Information Diagnostic Indications for Echo: assessment of surgical repair and hemodynamic monitoring Physician Requesting Echo: Lisa Vega MD Location performed: OR Intubated Bite block not placed Heart visualized Probe Insertion: Easy Probe Type: Multiplane Modalities: 2D only, color flow mapping, continuous wave Doppler and pulse wave Doppler Echocardiographic and Doppler Measurements Ventricles Right Ventricle: Cavity size normal. Hypertrophy not present. Thrombus not present. Global function normal. Left Ventricle: Cavity size normal. Hypertrophy present. Thrombus not present. Global Function normal. Ejection Fraction 60%. Ventricular Regional Function: 1- Basal Anteroseptal: normal 2- Basal Anterior: normal 3- Basal Anterolateral: normal 4- Basal Inferolateral: normal 5- Basal Inferior: normal 6- Basal Inferoseptal: normal Valves Aortic Valve: Annulus normal. Stenosis not present. Leaflets normal. Leaflet motions normal. Mitral Valve: Annulus normal. Stenosis not present. Leaflets normal. Leaflet motions normal. Tricuspid Valve: Annulus normal. Stenosis not present. Leaflets normal. Leaflet motions normal. Aorta Ascending Aorta: Size normal. Dissection not present. Mobile plaque not present. Aortic Arch: Size normal. Dissection not present. Mobile plaque not present. Descending Aorta: Size normal. Dissection not present. Mobile plaque not present. Atria Right Atrium: Size normal. Spontaneous echo contrast not present. Thrombus not present. Tumor not present. Device not present. Left Atrium: Size normal. Spontaneous echo contrast not present. Thrombus not present. Tumor not present. Device not present. Left atrial appendage normal. Septa Atrial Septum: Intra-atrial septal morphology lipomatous hypertrophy. Other Findings Pericardium: normal Pleural Effusion: none Anesthesia Information Performed Personally Anesthesiologist: Ki Dukes MD CPT Code: 78390 - IRENE with 2-D, M-mode, probe placement, image acquisition, interpretation and report, 01918 - Doppler echo, pulsed wave and/or spectral display and 33808 - Doppler echo, color flow velocity mapping Note: Prebypass: LV hypertrophy with normal LV function EF 55-60%. RV function normal. Mild MR. Aortic valve is trileaflet with mild central AI. Tricuspid valve normal in appearance with no significant TR. Interatrial septum with lipomatous hypertrophy but no PFO by color flow doppler. Aortic root, arch and visualized portion of descending aorta without any aneurysm or dissection. Postbypass: Hyperdynamic LV and RV. Mild AI as previously noted. us Ki Dukes MD GA ANESTHESIA Edited Result - Final * Introducer (01/27/2025 11:12 AM CDT) Teodora Oneil CRNA - 01/27/2025 11:12 AM CDT Teodora Barnes CRNA 01/27/2025 11:50 AM [place]/Introducer Placement: Date/Time: 01/27/2025 11:12 AM Patient Location: OR Placed Outside of This Facility?: No Procedure: Introducer with [place] Deena Technique Used: Maximum Sterile Technique used, hand hygiene, Chlorhexadine skin prep, real time Ultrasound guidance, guidewires used accounted for and blood return present Location: Internal jugular Size: 9.0 Vincentian Orientation: Left Insertion Attempts: 1 Therapy Type: CVC, central IV access, central fluids, vasopressors and blood products Securement Method: Sutured and taped us Ki Dukes MD GA ANESTHESIA Final Result * Art Line (01/27/2025 10:57 AM CDT) Teodora Oneil CRNA - 01/27/2025 10:57 AM CDT Teodora Barnes CRNA 01/27/2025 11:56 AM [place] Date/Time: 01/27/2025 10:57 AM Performed by: Teodora Barnes CRNA Authorized by: Ki Dukes MD Patient Location: OR Placed Outside of This Facility?: No Size: 20 Orientation: Left Location: Radial Site Prep: Chlorhexadine Local Anesthetic: Injectable Insertion Attempts: 1 Ultrasound-guided Placement: Yes Ultrasound was used to identify the vessel. It was assessed and patent. Ultrasound was used to visualized vascular needle entry into the vessel and The selected vessel appeared anatomically normal and there were no apparent abnormal findings Secure Method: Taped Patient Tolerance: Tolerated well Placed by JESSE Terry Result [facility] iK Dukes MD [place] ANESTHESIA Final Result * PHOSPHORUS, INORGANIC PHOSPHATE (01/27/2025 3:05 AM CDT) PHOSPHORUS 4.4 2.5 - 4.9 MG/DL 01/27/2025 4:15 AM CDT [facility] 01/27/2025 3:05 AM CDT us Vonda Montesinos APRN LABORATORY Final Result Performing Organization Address [facility] Co de Phone Number [facility] [address] [place] [address], [id number] * Pathology (01/27/2025 12:00 AM CDT) PATHOLOGY [facility] Department of Laboratory Medicine [address] [place] [address] , extension [phone] Pathology Report Surgical Pathology Report Name: FREDY CALERO Specimen #: [id number] Age: 12 1945 (Age: 79) Location: [address] Sex: M Procedure Date: 01/27/2025 Hospital #: [id number] Date Received: 01/28/2025 Date Reported: 01/31/2025 Provider: LISA VEGA MD Source: Plaque, right carotid artery Clinical History: CAD FINAL DIAGNOSIS: Artery, right carotid plaque, endarterectomy: - Calcified atherosclerotic plaque. Gross Description: Received in formalin, labeled with the patient's label and right carotid plaque, is a 3.8 x 1.3 x 0.7 cm portion of white-cisneros rubbery to yellow-cisneros firm tubular tissue. Sections reveal white-cisneros rubbery to yellow-cisneros calcified cut surfaces. There are no grossly identifiable masses or lesions. Medical Social Worker sections are submitted after decal. Gross examination (when applicable), interpretation, and sign out were performed at [facility], [address] [place] [address]. Electronically Signed Out FREDY DUARTE MD [facility] 01/27/2025 01/28/2025 7:5 8 AM CDT Comment:Plaque, right caroti d artery Lisa Vega MD PATHOLOGY/CYTOLOGY ORDERABL ES Final Result Performing Organization Address [facility] Co de Phone Number [facility] [address] [place] [address], [place] [phone] [id number] * TYPE & SCREEN - Verify expiration date is current (01/26/2025 1:58 PM CDT) UNITS ORDERED 2 01/26/2025 9:41 PM CDT [facility] ABO/RH B POSITIVE 01/26/2025 2:44 PM CDT [facility] ANTIBODY SCREEN NEGATIVE 01/26/2025 2:44 PM CDT [facility] SAMPLE EXPIRATION 01/29/2025,2 359 01/26/2025 2:03 PM CDT [facility] 01/26/2025 1:58 PM CDT Vonda Montesinos APRN BLOOD BANK TEST ORDER ANNE Final Result [facility] [address] [place] [address], [id number] * P2Y12 FUNCTION (01/26/2025 6:18 AM CDT) Pathologist [facility] PATIENT PRU [id number] PATIENT PRU 01/26/2025 6:52 AM CDT [facility] Comment: PRE DRUG PRU: [id number] THERAPEUTIC PRU: <208 01/26/2025 6:18 AM CDT Jimmie Martinez MD LABORATORY Final Result [facility] [address] [place] [address], [id number] * HEPARIN, ANTI XA, UFH (01/26/2025 5:48 AM CDT) Only the most recent of2 resultswithin the time period is included. [facility] HEPARIN ANTI XA UFH 0.37 0.30 - 0.70 IU/ML 01/26/2025 6:13 AM CDT [facility] Comment: [facility] Therapeutic Anti Xa Ranges: Medical Therapeutic Range: 0.30 - 0.70 IU/mL Cardiac Therapeutic Range: 0.30 - 0.50 IU/mL Neuro Therapeutic Range: 0.20 - 0.40 IU/mL 01/26/2025 5:48 AM CDT Fabian Jacome RN LABORATORY Final Res ult Performing Organization Address [facility] Co de Phone Number [facility] [address] [place] [address], [place] [phone] [id number] * (ABNORMAL) HEMOGLOBIN, GLYCATED (01/22/2025 11:24 AM CDT) HGB A1C 5.7(H) <5.7 % 01/22/2025 2:48 PM CDT [facility] ESTIMATED AVG GLUCOSE 117(H) 74 - 114 MG/DL 01/22/2025 2:48 PM CDT [facility] 01/22/2025 11:2 4 AM CDT Stefany Rubio [facility] LABORATORY Final R esult Performing Organization Address [facility] de Phone Number [facility] [address] [place] [address], [place] [phone] [id number] from Last 3 Months or Most Recently Relevant to Health Maintenance Insurance MEDICARE MEDICARE [facility] Advance Directives * Full Code (Latest Code Status on File) Date Activated Date Inactivated Comments 02/08/2025 10:25 PM * Full Code Date Activated Date Inactivated Comments 01/27/2025 4:35 PM 02/01/2025 3:05 PM * Full Code Date Activated Date Inactivated Comments 01/22/2025 11:30 AM 01/27/2025 4:35 PM * Full Code Date Activated Date Inactivated Comments 01/19/2025 9:47 AM 01/20/2025 3:46 PM * Full Code Date Activated Date Inactivated Comments 01/18/2025 4:12 PM 01/19/2025 9:47 AM Healthcare Agents on File Name Relationship Healthcare Agent Relationshi p Communication Luis Daniel Funes III Step Child Health Care Agent Loy Funes Step Child First Alternate Health Care Agent Fabian Escobar Step Child Second Alternate Health Care Agent Care Teams Title Department Manager Relationship Specialty Start Date End Date Cristina Oliver MD [address] [place] [address] PCP - General INTERNAL MEDICINE 02/13/16 Karlos Cho MD [address] [place] [address] Consulting Physician CARDIOVASCULAR DISEASE 10/25/24
--- OUTSIDE RECORDS SUMMARY | 2025-04-26 07:05 | XMS_ITS | Encounter Summary ---
Author Organization [facility] Address [facility] [place] [address] Care Team Providers Care Net Sql Developer Name Role Phone Cristina Oliver MD Primary Care Provider [phone] Wilson Bullock MD Unavailable Unavailabl Quincy Chaudhry MD Unavailable [phone] Kenny Handley APRN Unavailable [phone] Belgica Enriquez MD Unavailable Chiqui Lafleur MD Unavailable Encounter Details Date Type Department Care Team (Late st Contact Info) Description 03/17/2015 Abstract [facility] [address] [place] [address] Wilson Bullock MD Social History Tobacco Use Types Packs/Day Years Used Date Smoking Tobacco: Former Cigarettes Q uit: 12/29/2006 Smokeless Tobacco: Never Alcohol Use Standard Drinks/Week Comments Yes 0 (1 standard drink = 0.6 oz pur e alcohol) occasionally Sex and Gender Information Value Date Recorded Sex Assigned at Male 06/01/2024 7:55 AM ROTARY SWAGING MACHINE OPERATOR Legal Sex Male 10:30 PM CDT Gender Identity Not on file Sexual Orientation Not on file 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 Date 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 Not on file Not on file Not o n file documented as of this encounter Plan of Treatment Upcoming Encounters Date Type Department Care Team (Late st Contact Info) Description 06/01/2025 1:00 PM ROTARY SWAGING MACHINE OPERATOR Office Visit [facility] ield [address] [place] [address] Caty John MD [address] [place] [address] documented as of this encounter Visit Diagnoses Not on filedocumented in this encounter Additional Health Concerns Infection Onset Date Last Indicated Resolved Time COVID-19 Rule Out 06/03/2020 06/03/2020 06/04/2020 5:52 PM ROTARY SWAGING MACHINE OPERATOR documented as of this encounter Care Teams Net Sql Developer Relationship Specialty Start Date End Date Cristina Olvier MD [address] [place] [phone] PCP - General INTERNAL MEDICINE 02/13/16 Wilson Bullock MD [address] [place] [phone] [place] Mobile Security Specialist CARDIOVASCULAR DISEASE 02/13/16 08/26/24 Quincy Romero MD [address] [place] [phone] Consulting Physician INTERVENTIONAL CARDIOLOGY 08/21/22 08/26/24 Kenny Handley APRN [address] [place] [phone] Nurse Practitioner NURSE PRACTITIONER 03/20/23 08/26/24 Belgica Enriquez MD [address] [place] [address] Consulting Physician CARDIOVASCULAR DISEASE 08/27/24 Chiqui Lafleur MD [address] [place] [address] Consulting Physician CARDIOVASCULAR DISEASE 10/25/24 documented as of this encounter
--- OUTSIDE RECORDS SUMMARY | 2025-04-26 07:06 | XMS_ITS | Encounter Summary ---
Author Organization [facility] Address [facility] [place] [address] Care Team Providers Care Library Serials Assistant Name Role Phone Cristina Oliver MD Primary Care Provider [phone] Chiqui Lafleur MD Unavailable Encounter Details Date Type Department Care Team (Late st Contact Info) Description 01/24/2025 Hospital Follow-up Call [facility] Cardi[facility] Unit [address] [place] [address] Svetlana Damon, RN Social History Tobacco Use Types Packs/Day Years Used Date Smoking Tobacco: Former Cigarettes Q uit: 12/29/2006 Smokeless Tobacco: Never Alcohol Use Standard Drinks/Week Comments Yes 0 (1 standard drink = 0.6 oz pur e alcohol) Occasionally B1300 Health Literacy Answer Date Recor ded How often do you need to hav e someone help you when you read instructions, pamphlets, or other written material from your doctor or pharmacy? Never 01/22/2025 [facility] Utilities Answer Date Recorded In the [...] declined 01/22/2025 How often do you attend mormonism or scientology serv ices? Patient declined 01/22/2025 Do you belong to any clubs o r organizations such as mormonism groups, unions, fraternal or athletic groups, or school groups? Patient [...] medical care, and heating? Patient declined 01/22/2025 [facility] - [...] money to buy more. Never true 01/23/20 Within the past 12 months, t he [...] any time in the past 12 m [facility], were you homeless or living in a [facility] (including now)? 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 Answer Date of Assessment Author Status No 01/22/2025 2:00 PM CHENT Na Griffin RN Active * Do you have serious difficulty walking or climbing stairs? Answer Date of Assessment Author Status No 01/22/2025 2:11 PM CHENT Na Griffin RN Active * Do you have difficulty dressing or bathing? Answer Date of Assessment Author Status No 01/22/2025 2:11 PM Na Mcfadden RN Active * Because of a physical, mental, or emotional condition, do you have difficulty doing errands alone such as visiting a doctor's office or shopping? Answer Date of Assessment Author Status No 01/22/2025 2:11 PM Na Mcfadden RN Active documented as of this encounter Mental Status * Because of a physical, mental, or emotional condition, do you have serious difficulty concentrating, remembering, or making decisions? Answer Entry Date Author Status No 01/22/2025 2:11 PM Na Mcfadden RN Active documented in this encounter Plan of Treatment Upcoming Encounters Date Type Department Care Team (Late st Contact Info) Description 06/01/2025 1:00 PM PASTRY COOK HELPER [facility] [address] [place] [address] Caty John MD [address] [place] [address] documented as of this encounter Visit Diagnoses Not on filedocumented in this encounter Care Teams Library Serials Assistant Relationship Specialty Start Date End Date Cristina Oliver MD [address] [place] [address] PCP - General INTERNAL MEDICINE 02/13/16 Chiqui Lafleur MD [address] [place] [address] Consulting Physician CARDIOVASCULAR DISEASE 10/25/24 documented as of this encounter
--- OUTSIDE RECORDS SUMMARY | 2025-04-26 07:06 | XMS_ITS | Patient Health Record ---
Author Organization [facility] Address [address] [place], [place] [id number] Care Team Providers Care Hand Scudder Name Role Phone IRINA YANCEY Unavailable [phone] Cristina Oliver Unavailable Unavailable Reason For Referral No Information Medications Medication SIG (Take, Route, Frequency, Duration) Notes Start Date End Date Status Gemfibrozil 600 MG Oral Tablet ORAL gemfibrozil 600 MG Oral TabletOriginal Medicationgemfibrozil 600 MG Oral Tablet *Reorder from [employer] for eRx and Interaction Alerts* 09/17/2013 Active Zolpidem Tartrate 10 MG Oral Tablet ORAL zolpidem tartrate 10 MG Oral TabletOriginal Medicationzolpidem tartrate 10 MG Oral Tablet *Reorder from [employer] for eRx and Interaction Alerts* 09/17/2013 Active Lovastatin 10 MG Oral Tablet ORAL lovastatin 10 MG Oral TabletOriginal Medicationlovastatin 10 MG Oral Tablet *Reorder from [employer] for eRx and Interaction Alerts* 09/17/2013 Active aspirin 81 MG Effervescent Oral Tablet ORAL aspirin 81 MG Effervescent Oral TabletOriginal Medicationaspirin 81 MG Effervescent Oral Tablet *Reorder from [employer] for eRx and Interaction Alerts* 09/17/2013 Active alprazolam 0.25 MG Oral Tablet [Xanax] ORAL alprazolam 0.25 MG Oral Tablet [Xanax]Original Medicationalprazolam 0.25 MG Oral Tablet [Xanax] *Reorder from [employer] for eRx and Interaction Alerts* 09/17/2013 Active trolamine salicylate 100 MG/ML Topical Cream CUTANEOUS trolamine salicylate 100 MG/ML Topical CreamOriginal Medicationtrolamine salicylate 100 MG/ML Topical Cream *Reorder from [employer] for eRx and Interaction Alerts* 09/17/2013 Active omeprazole 10 MG Delayed Release Oral Capsule ORAL omeprazole 10 MG Delayed Release Oral CapsuleOriginal Medicationomeprazole 10 MG Delayed Release Oral Capsule *Reorder from [employer] for eRx and Interaction Alerts* 09/17/2013 Active Social History Social History Additional Details Category Social Info Options Details Migrated Social History Migrated Social History Alcohol intake : , History of tobacco use : , Smoking Status : Former smoker Plan Of Treatment No Information Insurance Providers Payer Name Payer Address Payer Phone Subscriber Number Group Number Insured Name Patient Relationship to Insured Coverage Start Date Coverage End Date Medicare Part B [facility] [address] [place] [phone] [id number] FREDY CALERO Self - patient is the insured [place] [employer] [place] [address] [facility] [place] [address] [id number] FREDY CALERO Self - patient is the insured
--- OUTSIDE RECORDS SUMMARY | 2025-04-26 07:06 | XMS_ITS | Encounter Summary ---
Author Organization [facility] Address [facility] [place] [address] Care Team Providers Care Research Assistant Member Name Role Phone Cristina Oliver MD Primary Care Provider [phone] Belgica Enriquez MD Unavailable Chiqui Lafleur MD Unavailable Encounter Details Date Type Department Care Team (Late st Contact Info) Description 10/04/2024 Hospital Follow-up Call [facility] [address] [place] [address] Svetlana Damon, RN Social History Tobacco Use Types Packs/Day Years Used Date Smoking Tobacco: Former Cigarettes Q uit: 12/29/2006 Smokeless Tobacco: Never Alcohol Use Standard Drinks/Week Comments Yes 0 (1 standard drink = 0.6 oz pur e alcohol) Occasionally [facility] Utilities Answer Date Recorded In the past 12 months has e [employer], gas, oil, or water [employer] threatened to shut off services in your home? No 09/28/2024 Humiliation, Afraid, Rape, and Kick questionnair e Answer Date Recorded Within the last year, have y ou been afraid of your partner or ex-partner? No 09/28/2024 Within the last year, have y ou been humiliated or emotionally abused in other ways by your partner or ex-partner? No Within the last year, have y ou been kicked, hit, slapped, or otherwise physically hurt by your partner or ex-partner? No 09/28/2024 Within the last year, have y ou been raped or forced to have any kind of sexual activity by your partner or ex-partner? No 09/28/2024 Overall Financial Resource Strain (CARDIA) Answe r Date Recorded How hard is it for you to pa y for the very basics like food, housing, medical care, and heating? Not hard at all 09/28/2024 Hunger Vital Sign Answer Date Recorded Within the past 12 months, y ou worried that your food would run out before you got the money to buy more. Never true 09/29/19 25 Within the past 12 months, t he food you bought just didn't last and you didn't have money to get more. Never true 09/28/2024 PRAPARE - Transportation Answer Date Re corded In the past 12 months, has l ack of transportation kept you from medical appointments or from getting medications? No 09/16 In the past 12 months, has l ack of transportation kept you from meetings, work, or from getting things needed for daily living? No 09/28/2024 Housing Stability Vital Sign Answer Brian e Recorded In the last 12 months, was t here a time when you were not able to pay the mortgage or rent on time? No 09/28/2024 In the past 12 months, how m any times have you moved where you were living? 0 09/28/2024 At any time in the past 12 m [facility], were you homeless or living in a custodial (including now)? 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 Answer Date of Assessment Author Status No 09/28/2024 10:23 PM Eduardo Shaw RN Active * Do you have serious difficulty walking or climbing stairs? Answer Date of Assessment Author Status No 09/28/2024 10:23 PM Eduardo Shaw RN Active * Do you have difficulty dressing or bathing? Answer Date of Assessment Author Status No 09/28/2024 10:23 PM Eduardo Shaw RN Active * Because of a physical, mental, or emotional condition, do you have difficulty doing errands alone such as visiting a doctor's office or shopping? Answer Date of Assessment Author Status No 09/28/2024 10:23 PM Eduardo Shaw RN Active documented as of this encounter Mental Status * Because of a physical, mental, or emotional condition, do you have serious difficulty concentrating, remembering, or making decisions? Answer Entry Date Author Status No 09/28/2024 10:23 PM Eduardo Shaw RN Active documented in this encounter Plan of Treatment Upcoming Encounters Date Type Department Care Team (Late st Contact Info) Description 06/01/2025 1:00 PM ROOMING HOUSE INSPECTOR [facility] [address] [place] [address] Caty John MD [address] [place], [place] [address] documented as of this encounter Visit Diagnoses Not on filedocumented in this encounter Care Teams Research Assistant Member Relationship Specialty Start Date End Date Cristina Oliver MD [address] [place] [phone] PCP - General INTERNAL MEDICINE 02/13/16 Belgica Enriquez MD [address] [place] [address] Consulting Physician CARDIOVASCULAR DISEASE 08/27/24 Chiqui Lafleur MD [address] [place] [address] Consulting Physician CARDIOVASCULAR DISEASE 10/25/24 documented as of this encounter
--- OUTSIDE RECORDS SUMMARY | 2025-04-26 07:06 | XMS_ITS | Encounter Summary ---
Author Organization [facility] Address [facility] [place] [address] Care Team Providers Care Porcelain Finisher Name Role Phone Cristina Oliver MD Primary Care Provider [phone] Wilson Bullock MD Unavailable Unavailabl Quincy Chaudhry MD Unavailable [phone] Kenny Handley APRN Unavailable [phone] Belgica Enriquez MD Unavailable Chiqui Lafleur MD Unavailable Encounter Details Date Type Department Care Team (Late st Contact Info) Description 08/19/2016 Abstract [facility] [address] [place] [address] Wilson Bullock MD Social History Tobacco Use Types Packs/Day Years Used Date Smoking Tobacco: Former Cigarettes Q uit: 12/29/2006 Smokeless Tobacco: Never Alcohol Use Standard Drinks/Week Comments Yes 0 (1 standard drink = 0.6 oz pur e alcohol) occasionally Sex and Gender Information Value Date Recorded Sex Assigned at Male 06/01/2024 7:55 AM INTERNAL MEDICINE PHYSICIAN ASSISTANT Legal Sex Male 10:30 PM CDT Gender Identity Not on file Sexual Orientation Not on file 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 Date 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 Not on file Not on file Not o n file documented as of this encounter Plan of Treatment Upcoming Encounters Date Type Department Care Team (Late st Contact Info) Description 06/01/2025 1:00 PM INTERNAL MEDICINE PHYSICIAN ASSISTANT Office Visit [facility] [address] [address] [place] [address] Caty John MD [address] [place] [address] documented as of this encounter Procedures Procedure [...] S/P/B 64 BILIRUBIN TOTAL S/P/B 0.7 08/16/2016 us Cristina Oliver MD LAB-OUTSIDE/ABSTRACTED Final Result * LIPID PANEL (OUTSIDE LAB) (08/16/2016) CHOLESTEROL 138 TRIGLYCERIDES 160 HDL 37 LDL (CALCULATED) 69 CHOL/HDL RATIO 3.7 08/16/2016 us Cristina Oliver MD LAB-OUTSIDE/ABSTRACTED Final Result documented in this encounter Visit Diagnoses Not on filedocumented in this encounter Additional Health Concerns Infection Onset Date Last Indicated Resolved Time COVID-19 Rule Out 06/03/2020 06/03/2020 06/04/2020 5:52 PM INTERNAL MEDICINE PHYSICIAN ASSISTANT documented as of this encounter Care Teams Porcelain Finisher Relationship Specialty Start Date End Date Cristina Oliver MD [address] [place] [phone] PCP - General INTERNAL MEDICINE 02/13/16 Wilson Bullock MD [address] [place] [phone] [place] [employer] CARDIOVASCULAR DISEASE 02/13/16 08/26/24 Quincy Romero MD [address] [place] [phone] Consulting Physician INTERVENTIONAL CARDIOLOGY 08/21/22 08/26/24 Kenny Handley APRN [address] [place] [phone] Nurse Practitioner NURSE PRACTITIONER 03/20/23 08/26/24 Belgica Enriquez MD [address] [place], [place] [phone] Consulting Physician CARDIOVASCULAR DISEASE 08/27/24 Chiqui Lafleur MD [address] [place], [place] [address] Consulting Physician CARDIOVASCULAR DISEASE 10/25/24 documented as of this encounter
--- OUTSIDE RECORDS SUMMARY | 2025-04-26 07:06 | XMS_ITS | Encounter Summary ---
Author Organization [facility] Address [facility] [place] [address] Care Team Providers Care Supervisor Tank House Name Role Phone Cristina Oliver MD Primary Care Provider [phone] Chiqui Lafleur MD Unavailable Encounter Details Date Type Department Care Team (Late st Contact Info) Description 02/03/2025 Hospital Follow-up Call [facility] [address] [place] [address] Svetlana Damon, RN Social History Tobacco Use Types Packs/Day Years Used Date Smoking Tobacco: Former Cigarettes Q uit: 12/29/2006 Smokeless Tobacco: Never Alcohol Use Standard Drinks/Week Comments Yes 0 (1 standard drink = 0.6 oz pur e alcohol) Occasionally OASIS D0700: Social Isolation Answer Da te Recorded Frequency of experiencing loneliness or isolatio n Rarely 02/02/2025 OASIS A1250: Transportation Answer Date Recorded Lack of Transportation (Medical) No 02/02/2025 Lack of Transportation (Non-Medical) No 02/02/2025 Patient Unable or Declines to Respond No 02/02/2025 OASIS B1300: Health Literacy Answer Brian e Recorded Frequency of needing help to read materials from doctor or pharmacy Never 02/02/2025 B1300 Health Literacy Answer Date Recor ded How often do you need to hav e someone help you when you read instructions, pamphlets, or other written material from your doctor or pharmacy? Never 01/22/2025 [facility] Utilities Answer Date Recorded In the past 12 months has th e [employer], gas, oil, or water [employer] threatened to shut off services in your [...] declined 01/22/2025 How often do you attend sabianist or quaker serv ices? Patient declined 01/22/2025 Do you belong to any clubs o r organizations such as sabianist groups, unions, fraternal or athletic groups, or [...] medical care, and heating? Patient declined 01/22/2025 [facility] of Occupat ional Health - Occupational Stress [...] any time in the past 12 m [facility], were you homeless or living in a correction (including now)? 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 Answer Date of Assessment Author Status No 01/22/2025 2:00 PM Na Mcfadden RN Active * Do you have serious difficulty walking or climbing stairs? Answer Date of Assessment Author Status No 01/22/2025 2:11 PM Na Mcfadden RN Active * Do you have difficulty [...] st Contact Info) Description 06/01/2025 1:00 PM RAIL TRACTOR OPERATOR [facility] [address] [place] [address] Caty John MD [address] [place] [address] documented as of this encounter Visit Diagnoses Not on filedocumented in this encounter Care Teams Supervisor Tank House Relationship Specialty Start Date End Date Cristina Oliver MD [address] [place] [phone] PCP - General INTERNAL MEDICINE 02/13/16 Chiqui Lafleur MD [address] [place] [address] Consulting Physician CARDIOVASCULAR DISEASE 10/25/24 documented as of this encounter
[2025-04-26 07:52] LABS: Anion Gap 9 mmol/L (4-12); Blood Urea Nitrogen 14 mg/dL (9-20); Calcium 9.7 mg/dL (8.4-10.2); Carbon Dioxide 26 mmol/L (22-30); Chloride 106 mmol/L (98-107); Estimated Glomerular Filt Rate > 60; Glucose 124 mg/dL (65-110); Osmolality Calculated 293 mOsm/kg (285-295); Potassium 4.7 mmol/L (3.4-5.0); Sodium 141 mmol/L (137-145)
== END 2025-04-26 06:59 | disposition home or self-care (01) ==
PROVIDERS: PCP Internal Medicine
DX: Z79.899 Other long term (current) drug therapy (principal)
CPT/HCPCS: 36415; 80048